=== PATIENT | female | born 1990 | race Caucasian/White ===

== ENCOUNTER 2017-06-23 18:51 | Emergency (ER) | payer OTHER ==
[~2017-06-23] VITALS: Ht 167.6 cm; Wt 39.0 kg
[~2017-06-23 18:51] MED LIST: ABILIFY10 MG; AMITRIPTYLINE H10 MG PO; CALCIUM600 MG; CYCLOBENZAPRINE5 MG PO; NORCO 10-325 T1 EACH PO; NORCO 5-325 TA1 EACH PO; OXYCODONE HCL10 MG PO; PRENATAL FORMU1 EACH PO; PROMETHAZINE HC25 M1 PO; SERTRALINE HCL50 MG PO; SUPER GINSENG1 EACH PO; TRAZODONE HCL100 MG PO
== END 2017-06-23 20:37 | disposition home or self-care (01) ==
LOC: ED 18:51
DX: R51 Headache (principal); F32.9 Major depressive disorder, single episode, unspecified; Z98.51 Tubal ligation status; Z88.1 Allergy status to other antibiotic agents; Z88.2 Allergy status to sulfonamides; Z79.899 Other long term (current) drug therapy
CPT/HCPCS: 96374; 96375; 99282; J1200; J1885; J2765; J7030

== ENCOUNTER 2017-08-15 12:05 | Emergency (ER) | payer OTHER ==
[~2017-08-15] VITALS: Ht 167.6 cm; Wt 39.0 kg
--- OUTSIDE RECORDS SUMMARY | ~2017-08-15 | XMS | Encounter Summary ---
Demographics + + + | Address | [address] | | | [place] [address] | + + + | Home Phone | | + + + | Preferred Language | Unknown | + + + | Marital Status | | + + + | Congregational Affiliation | Unknown | + + + | Race | Unknown | + + + | Ethnic Group | Other Race | + + + Author + + + | Author | [facility] | + + + | Organization | [facility] | + + + | Address | Unknown | + + + | Phone | Unavailable | + + + Support +------+ +---------+ + | Name | Relationship | Address | Phone | +------+ +---------+ + ECON | Unknown | Unavailable | +------+ +---------+ + Care Team Providers + +------+-------+ | Care Senior Php Developer Name | Role | Phone | + +------+-------+ | Michael Branch MD | PCP | tel | + +------+-------+ Encounter Details +--------+ + + + + | Date | Type | Department | Care Team | Description | +--------+ + + + + | 05/20/ | Documentati | Juanjo Duran | Seth Johnson MD | | | 2017 | on | [facility] | [address] | | | | | [facility] | [place] | | | | | [facility] | [place] [address] | | | | | [address] | [phone] | | | | | [address] [facility] | | | | | | [facility] | | | | | | [place], | | | | | | [place] [address] | | | | | | [phone] | | | +--------+ + + + [...] + +---------+ + | Alcohol Use | Drinks/We | oz/Week | Comments | | | ek | | | + + +---------+ + | No | | | | + + +---------+ + + + + | Sex Assigned at | Date Recorded | | | | + + + | Not on file | | + + + as of this encounter Plan of Treatment +--------+---------+ + + + | Date | Type | Specialty | Care Team | Description | +--------+---------+ + + + | 08/21/ | Office | Gastroenterology | Brain Waggoner, | | | 2016 | Visit | | [address] | | | | | | [address] | | | | | | [place] [address] | | | | | | [phone] | | | | | | | | +--------+---------+ + + + as of this encounter Visit Diagnoses Not on filein this encounter"
--- OUTSIDE RECORDS SUMMARY | ~2017-08-15 | XMS | Clinical Summary ---
Demographics + + + | Address | [address] | | | [place] [address] | + + + | Home Phone | | + + + | Preferred Language | Unknown | + + + | Marital Status | | + + + | Pentecostal Affiliation | Unknown | + + + | Race | Unknown | + + + | Ethnic Group | Other Race | + + + Author + + + | Author | [facility] | + + + | Organization | [facility] | + + + | Address | Unknown | + + + | Phone | Unavailable | + + + Support +------+ +---------+ + | Name | Relationship | Address | Phone | +------+ +---------+ + ECON | Unknown | Unavailable | +------+ +---------+ + Care Team Providers + +------+-------+ | Care Road Production General Manager Name | Role | Phone | + +------+-------+ | Michael Branch MD | PP | tel | + +------+-------+ Source Comments [facility] is fully live on both [facility] and [facility] Allergies + + + + + + [...] | | | + + +-------+---------+------+------+-------+ | oxyCODONE | Take 10 mg by mouth | | | | | Activ | | (immediate release) | three times daily. | | | | | e | | 10 mg oral tablet | | | | | | | + + +-------+---------+------+------+-------+ | traZODone 50 mg | Take 50 mg by mouth | | | 08/0 | | Activ | | oral tablet | once daily at | | | 2/20 | | e | | | bedtime. | | | 17 | | | + + +-------+---------+------+------+-------+ | amitriptyline 25 | Take 50 mg by mouth | | | | | Activ | | mg oral tablet | once daily at | | | | | e | | | bedtime. | | | | | | + + +-------+---------+------+------+-------+ | NORTREL 1/35 (28) | Take 1 tablet by | | | 07/2 | | Activ | | 1-35 mg-mcg oral | mouth once daily. | | | 12/13 | | e | | tablet | | | | 17 | | | + + +-------+---------+------+------+-------+ | promethazine 25 mg | Take 25 mg by mouth | | | 02/24 | | Activ | | oral tablet | once daily as | | | 12/13 | | e | | | needed. | | | 17 | | | + + +-------+---------+------+------+-------+ | sertraline 50 mg | Take 50 mg by mouth | | | | | Activ | | oral tablet | once daily. | | | | | e | + + +-------+---------+------+------+-------+ | ferrous sulfate | Take 325 mg by mouth | | | | | Activ | | 325 mg (65 mg iron) | once daily. | | | | | e | | oral tablet | | | | | | | + + +-------+---------+------+------+-------+ | albuterol 90 | Inhale 1 puff by | | | | | Activ | | mcg/actuation | mouth every four | | | | | e | | inhalation HFA | hours as needed. | | | | | | | aerosol inhaler | | | | | | | + + +-------+---------+------+------+-------+ | ascorbic acid | Take 500 mg by mouth | | | | | Activ | | (vitamin C) (VITAMIN | two times daily. | | | | | e | | C) 500 mg oral | | | | | | | | tablet | | | | | | | + + +-------+---------+------+------+-------+ | cholecalciferol | Take 2,000 Units by | | | | | Activ | | (Vitamin D3) | mouth once daily. | | | | | e | | (VITAMIN D3) 2,000 | | | | | | | | unit oral capsule | | | | | | | + + +-------+---------+------+------+-------+ Active Problems + + + | Problem | Noted Date | + + + | Unintended weight loss | 05/01/2017 | + + + Encounters +--------+ + + + + | Date | Type | Specialty | Care Team | Description | +--------+ + + + + | 05/20/ | MyChart | | Seth Johnson MD | RE:urine | | 2016 | Encounter | | | | +--------+ + + + + | 05/20/ | Documentati | | Seth Johnson MD | | | 2016 | on | | | | +--------+ + + + + from Last 3 Months Family History + + +------+ + | [...] Pressure | 120/70 | 05/01/2017 2:58 PM PDT | + + + + | Pulse | 68 | 05/01/2017 2:58 PM PDT | + + + + | Temperature | - | - | + + + + | Respiratory Rate | 12 | 05/01/2017 2:58 PM PDT | + + + + | Oxygen Saturation | - | - | + + + + | Inhaled Oxygen | - | - | | Concentration | | | + + + + | Weight | 45.4 kg (100 lb) | 05/01/2017 2:58 PM PDT | + + + + | Height | 167.6 cm (5' 6") | 05/01/2017 2:58 PM PDT | + + + + | Body Mass Index | 16.14 | 05/01/2017 2:58 PM PDT | + + + + Plan of Treatment +--------+---------+ + + + | Date | Type | Specialty | Care Team | Description | +--------+---------+ + + + | 08/21/ | Office | | Brain Waggoner, | | | 2016 | Visit | | [address] | | | | | | [address] | | | | | | [place] [address] | | | | | | [phone] | | | | | | | | +--------+---------+ + + + + + + + + | Health Maintenance | Due Date | Last Done | Comments | + + + + + | INFLUENZA VACCINE | | | | | (FLU SHOT) | 7 | | | + + + + + Results LAB OTHER (05/20/2017) + + + + | Component | Value | Ref Range | + + + + | PORPHYRIN WORKUP UR | Negative | | + + + + + + + | Specimen | Performing Laboratory | + + + | Urine | [facility] [id number], [place] | | | [address] | + + + from Last 3 Months
[2017-08-15] MEDS ORDERED: ALBUTEROL2.5 MG/3 M INH (12:21)
== END 2017-08-15 15:06 | disposition home or self-care (01) ==
LOC: ED 12:05
DX: R10.2 Pelvic and perineal pain (principal); Z88.8 Allergy status to other drugs, medicaments and biological substances; Z79.899 Other long term (current) drug therapy; Z79.891 Long term (current) use of opiate analgesic
CPT/HCPCS: 76830; 76856; 81001; 84703; 87077; 87088; 87186; 99284

== ENCOUNTER 2018-10-25 12:03 | Emergency (ER) | payer OTHER ==
[~2018-10-25] VITALS: Ht 167.6 cm; Wt 45.5 kg
[~2018-10-25 12:03] MED LIST changes: +ALBUTEROL2.5 MG/3 M INH
--- OUTSIDE RECORDS SUMMARY | 2018-10-25 12:06 | XMS ---
PreManage Notification: ANDRESSA VARELA Security Fitness Services Manager Events No recent Security Events currently on file [facility] There are no care providers on record at this time. Domingo has no Care Guidelines for this patient. EFelipa VISIT COUNT (12 MO.) 1 [facility]A [facility] TOTAL 1 NOTE: Visits indicate total known visits. ED/UCC VISIT TRACKING (12 MO.) 10/25/2018 12:04 [facility] [place] TYPE: Emergency COMPLAINT: - ABD PAIN,SHOULDER PAIN INPATIENT VISIT TRACKING (12 MO.) No inpatient visits to display in this time frame [email or web address]
== END 2018-10-25 15:06 | disposition left against medical advice (07) ==
LOC: ED 12:03
DX: R10.31 Right lower quadrant pain (principal); N19 Unspecified kidney failure; Z88.2 Allergy status to sulfonamides; Z88.1 Allergy status to other antibiotic agents; Z88.8 Allergy status to other drugs, medicaments and biological substances; Z79.899 Other long term (current) drug therapy
CPT/HCPCS: 76830; 76856; 81001; 84703; 99284-25

== ENCOUNTER 2019-09-07 11:12 | Emergency (ER) | payer OTHER ==
[~2019-09-07] VITALS: Ht 165.1 cm; Wt 47.2 kg
--- OUTSIDE RECORDS SUMMARY | ~2019-09-07 | XMS | Encounter Summary ---
Demographics + + + | Address | [address] | | | [place] [address] | + + + | Home Phone | | + + + | Preferred Language | Unknown | + + + | Marital Status | | + + + | Yazidi Affiliation | Unknown | + + + | Race | Unknown | + + + | Ethnic Group | Unknown | + + + Author + + + | Author | [facility] | | | and [place] | + + + | Organization | [facility] | | | and [place] | + + + | Address | Unknown | + + + | Phone | Unavailable | + + + Support + + + + + | Name | Relationship | Address | Phone | + + + + + | Brett Luis | ECON | Unknown | | + + + + + | Normanomi Flores | ECON | UNK | | | | | [place] | | + + + + + Care Team Providers + +------+ + | Care Logging Superintendent Name | Role | Phone | + +------+ + | Giovanna Rivera MD | PCP | | + +------+ + Encounter Details +--------+ + + + + | Date | Type | Department | Care Team | Description | +--------+ + + + + | 02/07/ | Hospital | [facility] | [facility], | | | 2012 | Encounter | [facility] | MD Giovanna [address] | | | | | [address] [place], | | | | | [address] [place], | [place] [address] | | | | | [place] [address] | [phone] | | | | | [phone] | | | +--------+ + + + + Social History + +-------+ +--------+------+ | Tobacco Use | Types | Packs/Day | Years | Date | | | | | Used | | + +-------+ +--------+------+ | Never Assessed | | | | | + +-------+ +--------+------+ + + + | Sex Assigned at | Date Recorded | | | | + + + | Not on file | | + + + + + + + | Job Start Date | Occupation | Industry | + + + + | Not on file | Not on file | Not on file | + + + + + + + + | Travel History | Travel Start | Travel End | + + + + + + | No recent travel history available. | + + documented as of this encounter Plan of Treatment Not on filedocumented as of this encounter Procedures + +--------+ + + + | Procedure Name | Priori | Date/Time | Associated Diagnosis | Comments | | | ty | | | | + +--------+ + + + | CULTURE IF | Routin | 02/07/2013 | | Results for this | | INDICATED,UA | e | 9:45 PM | | procedure are in the | | | | PDT | | results section. | + +--------+ + + + | URINALYSIS WITH | Routin | 02/07/2013 | | Results for this | | MICROSCOPIC | e | 9:45 PM | | procedure are in the | | | | PDT | | results section. | + +--------+ + + + | CULTURE, URINE | Routin | 02/07/2013 | | Results for this | | | e | 9:45 PM | | procedure are in the | | | | PDT | | results section. | + +--------+ + + + documented in this encounter Results Culture, Urine (02/07/2013 9:45 PM PDT) + + + + + + | Component | Value | Ref Range | Performed | Pathologist | | | | | At | Signature | + + + + + + | Specimen | Urine | | [facility] | | | | | [facility] | | | | | | [facility] | | | | | | CENTER | | | | | | LABORATORY | | + + + + + + | RESULT | Mixed Tamara | | [facility] | | | | | [facility] | | | | | | [facility] | | | | | | MED[facility] | | | | | | CENTER | | | | | | LABORATORY | | + + + + + + | RESULT | This is a mixed culture | | [facility] | | | | suggesting the | | [facility] | | | | probability of | | HEART | | | | contamination or | | MEDICAL | | | | colonization not related | | CENTER | | | | to infection. Further | | LABORATORY | | | | workup of these | | | | | | organisms may result in | | | | | | clinically misleading | | | | | | information due to low | | | | | | numbers and/or mixture | | | | | | of organisms present. | | | | | | Collection of another | | | | | | specimen is suggested, | | | | | | avoiding superficial | | | | | | sources of | | | | | | contamination. | | | | + + + + + + | Status | 02/09/2013 Final | | [facility] | | | | | [facility] | | | | | | [facility] | | | | | | [facility] | | | | | | [facility]ENTER | | | | | | LABORATORY | | + + + + + + + + | Specimen | + + | Urine specimen | | (specimen) | + + + + + + + | Performing | Address | City/State/Zipcode | Phone Number | | Organization | | | | + + + + + | [facility] | [address] | [place] [address] | | | [facility] | | | | | LABORATORY | | | | + + + + + Urinalysis With Microscopic (02/07/2013 9:45 PM PDT) + + + + + + | Component | Value | Ref Range | Performed | Pathologist | | | | | At | Signature | + + + + + + | Color, | Yellow | | [facility] | | | Urine | | | [facility] | | | | | | HEART | | | | | | MEDICAL | | | | | | CENTER | | | | | | LABORATORY | | + + + + + + | Clarity | Hazy | | [facility] | | | | | | [facility] | | | | | | HE[facility] | | | | | | MEDICAL | | | | | | CENTER | | | | | | LABORATORY | | + + + + + + | Glucose, | Negative | Negative mg/dL | [facility] | | | Urine | | | [facility] | | | | | | HEART | | | | | | MEDICAL | | | | | | CENTER | | | | | | LABORATORY | | + + + + + + | Bilirubin, | Negative | Negative | [facility] | | | Urine | | | [facility] | | | | | | HEART | | | | | | MEDICAL | | | | | | CENTER | | | | | | LABORATORY | | + + + + + + | Ketones, | Negative | Negative mg/dL | [facility] | | | Urine | | | [facility] | | | | | | HEART | | | | | | MEDICAL | | | | | | CENTER | | | | | | LABORATORY | | + + + + + + | Specific | 1.016 | 1.001 - 1.030 | [facility] | | | [place] | | | [facility] | | | | | | HE[facility] | | | | | | MEDICAL | | | | | | CENTER | | | | | | LABORATORY | | + + + + + + | pH, Urine | 6.5 | 5.0 - 7.5 | [facility] | | | | | | [facility] | | | | | | HE[facility] | | | | | | MEDICAL | | | | | | CENTER | | | | | | LABORATORY | | + + + + + + | Protein, | Trace (A) | Negative mg/dL | [facility] | | | Urine | | | [facility] | | | | | | HEART | | | | | | MEDICAL | | | | | | CENTER | | | | | | LABORATORY | | + + + + + + | Urobilinoge | <2.0 | <2.0 mg/dL | [facility] | | | n, Urine | | | [facility] | | | | | | HEART | | | | | | MEDICAL | | | | | | CENTER | | | | | | LABORATORY | | + + + + + + | Nitrite, | Negative | Negative | [facility] | | | Urine | | | [facility] | | | | | | HEART | | | | | | MEDICAL | | | | | | CENTER | | | | | | LABORATORY | | + + + + + + | Blood, | Negative | Negative | [facility] | | | Urine | | | [facility] | | | | | | HEART | | | | | | MEDICAL | | | | | | CENTER | | | | | | LABORATORY | | + + + + + + | Leukocyte | Large (A) | Negative | [facility] | | | Esterase, | | | [facility] | | | Urine | | | HEART | | | | | | MEDICAL | | | | | | CENTER | | | | | | LABORATORY | | + + + + + + | WBC UA | 25 (H) | <6 /hpf | [facility] | | | | | | [facility] | | | | | | [facility] | | | | | | MEDICAL | | | | | | CENTER | | | | | | LABORATORY | | + + + + + + | RBC UA | <1 | <6 /hpf | [facility] | | | | | | [facility] | | | | | | [facility] | | | | | | MEDICAL | | | | | | CENTER | | | | | | LABORATORY | | + + + + + + | BACTERIA UA | None seen | /hpf | [facility] | | | | | | [facility] | | | | | | HEART | | | | | | MEDICAL | | | | | | CENTER | | | | | | LABORATORY | | + + + + + + | SQUAMOUS | ManyComment: Healthy | /lpf | [facility] | | | EPITHELIAL | individuals show up to | | [facility] | | | UA | FEW squamous epithelial | | HEART | | | | cells in the urine, | | MEDICAL | | | | depending on collection | | CENTER | | | | method. | | LABORATORY | | + + + + + + | MUCUS UA | Present (A) | None seen /lpf | [facility] | | | | | | [facility] | | | | | | HE[facility] | | | | | | MEDICAL | | | | | | CENTER | | | | | | LABORATORY | | + + + + + + + + | Specimen | + + | | + + + + + + + | Performing | Address | City/State/Zipcode | Phone Number | | Organization | | | | + + + + + | [facility] | [address] | [place] [address] | | | [facility] | | | | | LABORATORY | | | | + + + + + Cul Ariana MOLINA (02/07/2013 9:45 PM PDT) + + + + + + | Component | Value | Ref Range | Performed | Pathologist | | | | | At | Signature | + + + + + + | Culture | Culture Set Up (A) | Culture not | [facility] | | | Indicated | | indicated | [facility] | | | | | | HE[facility] | | | | | | MEDICAL | | | | | | CENTER | | | | | | LABORATORY | | + + + + + + + + | Specimen | + + | | + + + + + + + | Performing | Address | City/State/Zipcode | Phone Number | | Organization | | | | + + + + + | [facility] | [address] | [place] [address] | | | [facility] | | | | | LABORATORY | | | | + + + + + documented in this encounter Visit Diagnoses Not on filedocumented in this encounter"
--- OUTSIDE RECORDS SUMMARY | ~2019-09-07 | XMS | Encounter Summary ---
Demographics + + + | Address | [address] | | | [place], [place] [address] | + + + | Home Phone | | + + + | Preferred Language | Unknown | + + + | Marital Status | | + + + | Sikh Affiliation | Unknown | + + + | Race | Unknown | + + + | Ethnic Group | Other Race | + + + Author + + + | Author | [facility] | + + + | Organization | [facility] | + + + | Address | Unknown | + + + | Phone | Unavailable | + + + Support + + +---------+ + | Name | Relationship | Address | Phone | + + +---------+ + | Per None, PT | ECON | Unknown | Unavailable | + + +---------+ + Care Team Providers + +------+ + | Care Coloring Room Man Name | Role | Phone | + +------+ + | Michael Branch MD | PCP | | + +------+ + Encounter Details +--------+ + + + + | Date | Type | Department | Care Team | Description | +--------+ + + + + | 05/03/ | MyChart | [facility] | Seth Johnson MD | RE:labs | | 2017 | Encounter | [facility] | [address] | | | | | [facility] | [address] [place], | | | | | [address] | [place] [address] | | | | | [address] | [phone] | | | | | [facility] | | | | | | Physician's | | | | | | [address], | | | | | | [place] [address] | | | | | | [phone] | | | +--------+ + + + + Social History + +-------+ +--------+------+ | Tobacco Use | Types | Packs/Day | Years | Date | | | | | Used | | + +-------+ +--------+------+ | Never Smoker | | | | | + +-------+ +--------+------+ + +---+---+---+ | Smokeless Tobacco: | | | | | Never Used | | | | + +---+---+---+ + + +---------+ + | Alcohol Use | Drinks/Week | oz/Week | Comments | + + +---------+ + | No | | | | + + +---------+ + + + + | Sex Assigned at [...] | + +--------+ + + + | LAB OTHER | Routin | 05/20/2017 | Unintended weight | Results for this | | | e | | loss | procedure are in the | | | | | | results section. | + +--------+ + + + documented in this encounter Results LAB OTHER (05/20/2017) + + + + + + | Component | Value | Ref Range | Performed | Pathologist | | | | | At | Signature | + + + + + + | PORPHYRIN | Negative | | [facility] | | | WORKUP UR | | | LAB | | + + + + + + + + | Specimen | + + | Urine - Urine | | (substance) | + + + + + + + | Performing | Address | City/State/Zipcode | Phone Number | | Organization | | | | + + + + + | [facility] | [address] | [place], [place] | | | | [address] | [address] | | + + + + + documented in this encounter Visit Diagnoses + + | Diagnosis | + + | Unintended weight loss - Primary | + + documented in this encounter"
--- OUTSIDE RECORDS SUMMARY | ~2019-09-07 | XMS | Encounter Summary ---
Demographics + + + | Address | [address] | | | [place] [address] | + + + | Home Phone | | + + + | Preferred Language | Unknown | + + + | Marital Status | | + + + | Baptist Affiliation | Unknown | + + + | Race | Unknown | + + + | Ethnic Group | Unknown | + + + Author + + + | Author | [facility] | | | and [place] | + + + | Organization | [facility] | | | [...] | + + + + + | Norma Flores | ECON | UNK | | | | | MASHA CADENA | | + + + + + Care Team Providers + +------+ + | Care Electrical Tests Supervisor Name | Role | Phone | + +------+ + PCP | Unavailable | + +------+ + Encounter Details +--------+ + + + + | Date | Type | Department | Care Team | Description | +--------+ + + + + | 07/29/ | Hospital | [facility] | Tremayne Reno MD | | | 2008 | Encounter | [facility] | [address] | | | | | EMERGENCY CENTER | [place] [address] | | | | | [address] | [phone] | | | | | [place], [place] | | | | | | [address] | | | | | | [phone] | | | +--------+ + + + [...] | + +--------+ + + + | US ABDOMEN LIMITED | | 07/29/2009 | | Results for this | | | | 7:30 PM | | procedure are in the | | | | PST | | results section. | + +--------+ + + + | US PELVIS | | 07/29/2009 | | Results for this | | TRANSABDOMINAL | | 7:20 PM | | procedure are in the | | | | PST | | results section. | + +--------+ + + + documented in this encounter Results US Abdomen Limited (07/29/2009 7:30 PM PST) + + | Specimen | + + | | + + + + + | Narrative | Performed At | + + + | Exam Performed Location: [facility] | MISCELANIOUS | | ULTRASOUND ABDOMEN, LIMITED CLINICAL INFORMATION: Right lower | LAB | | quadrant pain. COMPARISON: None FINDINGS: Appendix is not | | | visualized. No fluid collection. No significant cecal wall | | | thickening. IMPRESSION: Nonvisualization of the appendix. No | | | significant abnormalities. S: SQ ([id number]) Signed by: BROOKLYN Larios | | | MD KEO | | + + + + + | Procedure Note | + + | Guru, Rad Conversion - 06/19/2013 9:44 PM PDT Exam Performed [facility] IN[facility]:Right lower quadrant | | pain.COMPARISON:NoneFINDINGS:Appendix is not visualized. No fluid collection. No | | significantcecal wall thickening.IMPRESSION:Nonvisualization of the appendix. No | | significant abnormalities.S: SQ ([id number]) Signed by: BROOKLYN CROWLEY MD | |Right lower quadrant pain. | | | |COMPARISON: | |None | | | |FINDINGS: | |Appendix is not visualized. No fluid collection. No significant | |cecal wall thickening. | | | |IMPRESSION: | |Nonvisualization of the appendix. No significant abnormalities. | | | | | |S: SQ ([id number]) Signed by: BROOKLYN CROWLEY MD | + + + +---------+ + + | Performing | Address | City/State/Zipcode | Phone Number | | Organization | | | | + +---------+ + + | [facility] | | | [phone] | + +---------+ + + | [facility]ISC[facility] | | | [phone] | + +---------+ + + US Pelvis Transabdominal (07/29/2009 7:20 PM PST) + + | Specimen | + + | | + + + + + | Narrative | Performed At | + + + | Exam Performed Location: [facility] | MISCELANIOUS | | ULTRASOUND PELVIS, TRANSABDOMINAL AND TRANSVAGINAL CLINICAL | LAB | | INFORMATION: Right lower abdominal pain and pelvic pain. Negative | | | quantitative beta HCG. COMPARISON: None PROCEDURE: | | | Evaluation and measurement of the uterus, endometrium and ovaries, if | | | present, and evaluation of the adnexa. FINDINGS: Transabdominal: | | | The uterus is anteverted and measures 6.8 x 2.1 x 3.6 cm and shows | | | smooth contour. Urinary bladder is suboptimally distended. | | | Ovaries are not visualized transabdominally. Transvaginal: No | | | myometrial masses. Endometrial thickness of 2.6 mm. No fluid in | | | the cul-de-sac. Right ovary measures 3.2 x 1.5 x 1.8 cm and shows | | | multiple follicles. There is normal vascular flow. Left ovary | | | measures 4.3 x 1.8 x 2.1 cm and shows a thin- walled cyst measuring | | | 1.7 x 1.2 x 1.2 cm. Arterial and venous flows noted to the left | | | ovary. IMPRESSION: No significant uterine or adnexal masses. No | | | significant abnormalities. S: SQ ([id number]) Signed by: BROOKLYN Larios | | | MD KEO | | + + + + + | Procedure Note | + + | Guru, Rad Conversion - 06/19/2013 9:56 PM PDT Exam Performed Location: [facility] | [facility]DOM[facility] TRANSVAGINALCLINICAL | | INFORMATION:Right lower abdominal pain and pelvic pain. Negative quantitativebeta | | HCG.COMPARISON:NonePROCEDURE:Evaluation and measurement of the uterus, endometrium and | | ovaries,if present, and evaluation of the adnexa.FINDINGS:Transabdominal: The uterus is | | anteverted and measures 6.8 x 2.1 x3.6 cm and shows smooth contour. Urinary bladder is | | suboptimallydistended. Ovaries are not visualized transabdominally.Transvaginal: No | | myometrial masses. Endometrial thickness of 2.6mm. No fluid in the cul-de-sac. Right | | ovary measures 3.2 x 1.5 x1.8 cm and shows multiple follicles. There is normal | | vascularflow. Left ovary measures 4.3 x 1.8 x 2.1 cm and shows a thin-walled cyst | | measuring 1.7 x 1.2 x 1.2 cm. Arterial and venousflows noted to the left | | ovary.IMPRESSION:No significant uterine or adnexal masses. No | | significantabnormalities.S: SQ ([id number]) Signed by: BROOKLYN CROWLEY MD | |if present, and evaluation of the adnexa. | | | |FINDINGS: | |Transabdominal: The uterus is anteverted and measures 6.8 x 2.1 x | |3.6 cm and shows smooth contour. Urinary bladder is suboptimally | |distended. Ovaries are not visualized transabdominally. | | | |Transvaginal: No myometrial masses. Endometrial thickness of 2.6 | |mm. No fluid in the cul-de-sac. Right ovary measures 3.2 x 1.5 x | |1.8 cm and shows multiple follicles. There is normal vascular | |flow. Left ovary measures 4.3 x 1.8 x 2.1 cm and shows a thin- | |walled cyst measuring 1.7 x 1.2 x 1.2 cm. Arterial and venous | |flows noted to the left ovary. | | | |IMPRESSION: | |No significant uterine or adnexal masses. No significant | |abnormalities. | | | | | |S: SQ ([id number]) Signed by: BROOKLYN CROWLEY MD | + + + +---------+ + + | Performing | Address | City/State/Zipcode | Phone Number | | Organization | | | | + +---------+ + + | [facility] | | | [phone] | + +---------+ + + | [facility] | | | [phone] | + +---------+ + + documented in this encounter Visit Diagnoses Not on filedocumented in this encounter"
--- OUTSIDE RECORDS SUMMARY | ~2019-09-07 | XMS | Encounter Summary ---
Demographics + + + | Address | [address] | | | [place] [address] | + + + | Home Phone | | + + + | Preferred Language | Unknown | + + + | Marital Status | | + + + | Pentecostalism Affiliation | Unknown | + + + | Race | Unknown | + + + | Ethnic Group | Unknown | + + + Author + + + | Author | [facility] | | | and [place] | + + + | Organization | [facility] | | | and [...] Team Providers + +------+ + | Care Second Hand Paper Machine Name | Role | Phone | + +------+ + PCP | Unavailable | + +------+ + Encounter Details +--------+ + + + + | Date | Type | Department | Care Team | Description | +--------+ + + + + | 12/19/ | Hospital | [facility] | Tremayne Todd MD | | | 2011 | Encounter | [facility] | [address], | | | | | [address] [place], [place] | | | | | [address] | [address] | | | | | [place], [place] | | | | | | [address] | | | | | | [phone] | | | +--------+ + + + [...] Not on filedocumented as of this encounter Visit Diagnoses Not on filedocumented in this encounter"
--- OUTSIDE RECORDS SUMMARY | ~2019-09-07 | XMS | Encounter Summary ---
Demographics + + + | Address | [address] | | | [place], [place] [address] | + + + | Home Phone | | + + + | Preferred Language | Unknown | + + + | Marital Status | | + + + | Sikh Affiliation | Unknown | + + + | Race | Unknown | + + + | Ethnic Group | Other Race | + + + Author + + + | Author | [facility] | + + + | Organization | [facility] | + + + | Address | Unknown | + + + | Phone | Unavailable | + + + Support + + +---------+ + | Name | Relationship | Address | Phone | + + +---------+ + | Per None, PT | ECON | Unknown | Unavailable | + + +---------+ + Care Team Providers + +------+ + | [facility] Name | Role | Phone | + +------+ + | Michael Branch MD | PCP | | + +------+ + Reason for Visit + + + | Reason | Comments | + + + | Weight loss | | + + + | New patient | | | consultation | | + + + Intake Referral (Routine) +--------+--------+ + + + + | Status | Reason | Specialty | Diagnoses / | Referred By | Referred To | | | | | Procedures | Contact | Contact | +--------+--------+ + + + + | Closed | | Endocrinology | Diagnoses | Sarina, | Alex, | | | | , Diabetes & | Underweight | Michael Leung MD | MD Seth | | | | Metabolism | Abdominal | [facility] | [address] [facility] | | | | | Pain | Primary Care | Daniel Johnson | | | | | Procedures | Clinic | [place], | | | | | MD NEW | [address] | [place] | | | | | PATIENT | [place] | [address] | | | | | LEVEL V MD | RJ, | Phone: | | | | | EST PATIENT | [place] [address] | [phone] | | | | | LEVEL V | Phone: | Fax: | | | | | | [phone] | [phone] | | | | | | Fax: | | | | | | | [phone] | | +--------+--------+ + + + + Encounter Details +--------+---------+ + + + | Date | Type | Department | Care Team | Description | +--------+---------+ + + + | 05/01/ | Office | Juanjo Duran | Seth Johnson MD | Unintended weight | | 2017 | Visit | [facility] | [address] | loss (Primary Dx); | | | | [facility] | [place], | LLQ abdominal pain | | | | [facility] [address] | [place] [address] | | | | | [address] | [phone] | | | | | [facility] | | | | | | Physician's | | | | | | [place], | | | | | | [place] [address] | | | | | | [phone] | | | +--------+---------+ + + + Social History + +-------+ +--------+------+ | Tobacco Use | Types | Packs/Day | Years | Date | | | | | Used | | + +-------+ +--------+------+ | Never Smoker | | | | | + +-------+ +--------+------+ + +---+---+---+ | Smokeless Tobacco: | | | | | Never Used | | | | + +---+---+---+ + + | Tobacco Cessation: Counseling Given: Yes | + + + + +---------+ + | Alcohol Use [...] + + documented as of this encounter Last Filed Vital Signs + + + + + | Vital Sign | Reading | Time Taken | Comments | + + + + + | Blood Pressure | 120/70 | 05/01/2017 2:58 PM | | | | | PDT | | + + + + + | Pulse | 68 | 05/01/2017 2:58 PM | | | | | PDT | | + + + + + | Temperature | - | - | | + + + + + | Respiratory Rate | 12 | 05/01/2017 2:58 PM | | | | | PDT | | + + + + + | Oxygen Saturation | - | - | | + + + + + | Inhaled Oxygen | - | - | | | Concentration | | | | + + + + + | Weight | 45.4 kg (100 lb) | 05/01/2017 2:58 PM | | | | | PDT | | + + + + + | Height | 167.6 cm (5' 6") | 05/01/2017 2:58 PM | | | | | PDT | | + + + + + | Body Mass Index | 16.14 | 05/01/2017 2:58 PM | | | | | PDT | | + + + + + documented in this encounter Progress Notes Ivone Kim MD - 05/01/2017 2:20 PM PDTFormatting of this note might be different fro m the original. Endocrine Clinic PCP: Michael Branch MD Referring Physician: Michael Branch MD [facility] [address] [place] [address] Reason for referral: Referred for evaluation of inability to gain weight and LLQ pain. HPI: Therese Luis is a 27 y.o. female with PMH of anxiety and post thyro ditis. Therese claims that the heaviest she has ever been was 135 lb, this was 7 years ago. S he cant remember any specific event that might have triggered her weight loss. But since the n she has lost approximately 35 lbs. She claims to eats 4 large meals a day and multiple sna cks. Her diet is high in fat and carbohydrates and was started on amitriptyline by her PCP f or weight gain. Her main concern this visit is that despite all her attempts to gain weight she has not been able to. She is also concerned because all her family is overweight except herself. Concomitantly she complains of frequent panic attacks, palpitations and mild tremor s. Her other complaint this visit is abdominal pain that started 2 weeks ago. She states that the pain is dull, 8/10, starts in LLQ and radiates to her left thigh. The pain usually lasts up to a minute and resolves on its own. Therese experiences up to 20 episodes of abdominal p ain a day. Since it started it has not changed. She denies diarreha or constipation. Her steven n usually improves when she takes oxycodone and takes a hot shower. The pain is usually wors e when she lays down. She also denies fever, chills or pain during sexual intercourse. Imagi ng normal ROS: General: no night sweats, unable to gain weight HEENT: denies blurred vision and visual change Psych: no depression, multiple panic attacks and high anxiety, no sleep disturbance or nigh tmares Pulm: no SOB, STAPLES or orthopnea. No snoring, apnea. CV:no hest pain, edema or palpitations GI: no nausea, vomiting, diarrhea or constipation. LLQ abdominal pain ENDO: no heat intolerance, cold intolerance or fractures : no urinary hesitancy, polyuria or nocturia Neuro: no pain, numbness or dizziness Skin: no vitiligo, dermopathy or easy bruising MS: no weakness or loss of muscle mass The remainder of the 13 system ROS has been reviewed Current Outpatient Prescriptions: albuterol 90 mcg/actuation inhalation HFA aerosol inhaler , Inhale 1 puff by mouth every four hours as needed., Disp: , Rfl: amitriptyline 25 mg oral tablet, Take 50 mg by mouth once daily at bedtime., Disp: , Rfl: ferrous sulfate 325 mg (65 mg iron) oral tablet, Take 325 mg by mouth once daily., Disp: , Rfl: NORTREL 1 (28) 1-35 mg-mcg oral tablet, Take 1 tablet by mouth once daily., Disp: , Rfl: oxyCODONE (immediate release) 10 mg oral tablet, Take 10 mg by mouth three times daily., Di sp: , Rfl: promethazine 25 mg oral tablet, Take 25 mg by mouth once daily as needed., Disp: , Rfl: sertraline 50 mg oral tablet, Take 50 mg by mouth once daily., Disp: , Rfl: traZODone 50 mg oral tablet, Take 50 mg by mouth once daily at bedtime., Disp: , Rfl: Allergies: septra and wellbutrin Patient Active Problem List Diagnosis Unintended weight loss Past Medical History: Diagnosis Date Depression LLQ abdominal pain FAMILY HISTORY Family History Problem Relation Age of Onset - hypothyroidism brother - mother hypothyroidism PAST MEDICAL/SURGICAL HISTORY Tubal ligation SOCIAL HISTORY -Lives with her and 4 children -Marital Status: - Number of Children: 4 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 Painful to palpation in LLQ Ext: no edema, no tremors Skin: no lesions or bruising, multiple tattoos Psych: quiet, reserved mood and affect Labs: No results found for: A1C No results for input(s): CHOL, LDL, HDL, TRI in the last 8640 hours. No results for input(s): AST, ALT, TBILI, AP, ALB, TP in the last 8640 hours. No results for input(s): GLU, BUN, CR, ALB, CA, NA, K, CL, BICARB in the last 8640 hours. No results found for: TSH Assessment and plan: 1. Weight/Abd Pain: Therese Luis is a 27 y.o. female comes to the clinic with c oncerns of inability to gain weight. She feels uncomfortable with her current weight. She al so has an atypical abdominal pain, for which she has undergone abdominal US which was normal a week ago. Due to the overlapping symptoms will obtain lab work bellow to rule out causes of weight loss and abdominal pain such as hyperthyroidism, HIV, hepatitis C and Celiac dise ase. Since she has been taking OTC iron supplements will measure iron level. Orders Placed This Encounter COMPLETE METABOLIC SET (NA,K,CL,CO2,BUN,CREAT,GLUC,CA,AST,ALT,BILI TOTAL,ALK PHOS,ALB,P ROT TOTAL) CBC ONLY TSH TISSUE TRANSGLUTAMINASE IGA, SERUM IGA, SERUM FOOD COMPLETE IGE PANEL THYROID PEROXIDASE AB, SERUM THYROGLOBULIN AB, SERUM HIV-1,2 AB/HIV-1 P24 AG SCRN, SERUM HEPATITIS C AB W/CONFIRMATION REFLEX PCR FREE T4 ACTH, PLASMA CORTISOL, SERUM FERRITIN VITAMIN D, 25-HYDROXY, SERUM oxyCODONE (immediate release) 10 mg oral tablet traZODone 50 mg oral tablet amitriptyline 25 mg oral tablet NORTREL 1/35 (28) 1-35 mg-mcg oral tablet promethazine 25 mg oral tablet sertraline 50 mg oral tablet ferrous sulfate 325 mg (65 mg iron) oral tablet albuterol 90 mcg/actuation inhalation HFA aerosol inhaler Cassy Kim MD Pager [phone] Endocrinology Fellow This patient was seen and discussed with Dr. Johnson who agrees with this assessment and plan . Associated attestation - Seth Johnson MD - 05/01/2017 4:04 PM PDTI saw and evaluated the patient. I agree with the findings and plan of care as documented in the residents/fellows n ote. Pt agrees to HIV testing Seth Johnson MD Endocrinology, Diabetes and Clinical Nutrition [address] [place] [address] [facility] - [address] [address] documented in this encounter Plan of Treatment Not on filedocumented as of this encounter Results VITAMIN D, 25-HYDROXY, SERUM (05/01/2017 3:24 PM PDT) + + + + + + | Component | Value | Ref Range | Performed | Pathologist | | | | | At | Signature | + + + + + + | VITAMIN D | 21.7 (L) | 30 - 80 ng/mL | [facility] | | | 25 HYDROXY | | | LABORATORY | | | | | | SERVICES, | | | | | | CORE | | + + + + + + + + | Specimen | + + | Blood | + + + + + | Narrative | Performed At | + + + | Reference Interval: 0-18years: Deficiency: <20 ng/mL | [facility] | | Optimum level: >or=20 ng/mL | LABORATORY | | >18years: Deficiency: <20 | SERVICES, CORE | | ng/mL Insufficiency: 20-29 ng/mL | | | Optimum Level: 30-80 ng/mL High: | | | 81-150 ng/ml Toxic: >150 ng/mL | | + + + + + + + + | Performing | Address | City/State/Zipcode | Phone Number | | Organization | | | | + + + + + | [facility] | [address] | [place] [address] | | | SERVICES, CORE | [address] | | | + + + + + FERRITIN (05/01/2017 3:24 PM PDT) + + + + + + | Component | Value | Ref Range | Performed | Pathologist | | | | | At | Signature | + + + + + + | FERRITIN | 36 (L)Comment: Male and | 50 - 200 ng/mL | [facility] | | | | Female >18 years: | | LABORATORY | | | | <20 ng/mL: | | SERVICES, | | | | Consistant with iron | | CORE | | | | deficiency 21-50 | | | | | | ng/mL: Possible | | | | | | iron deficiency 51-99 | | | | | | ng/mL: Iron | | | | | | deficiency unlikely | | | | | | unless inflammation | | | | | | present or | | | | | | patient | | | | | | >65 years of age | | | | | | 100-200 ng/mL: | | | | | | Normal, not consistent | | | | | | with iron deficiency | | | | | | >200 ng/mL: If | | | | | | transferrin saturation | | | | | | >45%, consider | | | | | | hemochromatosis | | | | + + + + + + + + | Specimen | + + | Blood - Blood | | (substance) | + + + + + + + | Performing | Address | City/State/Zipcode | Phone Number | | Organization | | | | + + + + + | [facility] | [address] | [place] [address] | | | SERVICES, CORE | [address] | | | + + + + + CORTISOL, SERUM (05/01/2017 3:24 PM PDT) + +-------+ + + + | Component | Value | Ref Range | Performed | Pathologist | | | | | At | Signature | + +-------+ + + + | CORTISOL, | 3.7 | ug/dL | [facility] | | | TOTAL SERUM | | | LABORATORY | | | | | | SERVICES, | | | | | | CORE | | + +-------+ + + + + + | Specimen | + + | Blood - Blood | | (substance) | + + + + + | Narrative | Performed At | + + + | Reference Ranges: A.M. collect(7-9am) = 5.3-22.5 ug/dL P.M. | [facility] | | collect(3-5 pm) = 3.4-16.8 ug/dL | LABORATORY | | | SERVICES, CORE | + + + + + + + + | Performing | Address | City/State/Zipcode | Phone Number | | Organization | | | | + + + + + | [facility] | [address] | [place] [address] | | | SERVICES, CORE | [address] | | | + + + + + ACTH, PLASMA (05/01/2017 3:24 PM PDT) + +-------+ + + + | Component | Value | Ref Range | Performed | Pathologist | | | | | At | Signature | + +-------+ + + + | ACTH,PLASMA | 14 | <=45 pg/mL | [facility] | | | | | | [facility] | | | | | [facility] | | + +-------+ + + + + + | Specimen | + + | Blood - Blood | | (substance) | + + + + + + + | Performing | Address | City/State/Zipcode | Phone Number | | Organization | | | | + + + + + | [facility] | [address] | [place] [address] | | | [facility] | | | | + + + + + FREE T4 (05/01/2017 3:24 PM PDT) + +-------+ + + + | Component | Value | Ref Range | Performed | Pathologist | | | | | At | Signature | + +-------+ + + + | FREE T4 | 1.1 | 0.6 - 1.2 ng/dL | [facility] | | | | | | LABORATORY | | | | | | SERVICES, | | | | | | CORE | | + +-------+ + + + + + | Specimen | + + | Blood - Blood | | (substance) | + + + + + + + | Performing | Address | City/State/Zipcode | Phone Number | | Organization | | | | + + + + + | [facility] | [address] | [place] [address] | | | SERVICES, CORE | [address] | | | + + + + + HEPATITIS C AB W/CONFIRMATION REFLEX PCR (05/01/2017 3:24 PM PDT) + + + + + + | Component | Value | Ref Range | Performed | Pathologist | | | | | At | Signature | + + + + + + | HEP C AB | Not Detected | Not Detected | [facility] | | | | | | LABORATORY | | | | | | SERVICES, | | | | | | CORE | | + + + + + + + + | Specimen | + + | Blood - Blood | | (substance) | + + + + + + + | Performing | Address | City/State/Zipcode | Phone Number | | Organization | | | | + + + + + | [facility] | [address] | [place] [address] | | | SERVICES, CORE | [address] | | | + + + + + HIV-1,2 AB/HIV-1 P24 AG SCRN, SERUM (05/01/2017 3:24 PM PDT) + + + + + + | Component | Value | Ref Range | Performed | Pathologist | | | | | At | Signature | + + + + + + | HIV-1,2 | Negative | Negative | [facility] | | | AB/HIV-1 | | | LABORATORY | | | P24 AG | | | SERVICES, | | | SCREEN | | | SPECIAL IMM | | | | | | + [place] | | + + + + + + + + | Specimen | + + | Blood - Blood | | (substance) | + + + + + | Narrative | Performed At | + + + | HIV-1 p24 Ag and HIV-1,2 Ab not detected. Test modified from | [facility] | | original sledger's approved specifications. The performance | LABORATORY | | of the EQUIPMENT HIRE MANAGER HIV Combo test, with or without confirmation, was not | SERVICES, | | tested in pediatric patients less than 2 years of age. [facility] | SPECIAL IMM + | | guidelines recommend virologic assays (i.e. HIV 1 VIRAL LOAD) that | [facility] | | directly detect HIV for diagnosis of HIV infection in infants younger | | | than 2 years. | | + + + + + + + + | Performing | Address | City/State/Zipcode | Phone Number | | Organization | | | | + + + + + | [facility] | [address] | [place] [address] | | | SERVICES, SPECIAL | [address] | | | | IMM + [place] | | | | + + + + + THYROGLOBULIN AB, SERUM (05/01/2017 3:24 PM PDT) + + + + + + | Component | Value | Ref Range | Performed | Pathologist | | | | | At | Signature | + + + + + + | THYROGLOBUL | <0.9Comment: | 0.0 - 4.0 IU/mL | [facility] | | | IN ANTIBODY | INTERPRETIVE | | REG UNIV | | | | INFORMATION: | | PTH - INTFC | | | | Thyroglobulin Antibody | | | | | | | | | | | | A | | | | | | value of 4.0 IU/mL or | | | | | | less indicates a | | | | | | negative result for | | | | | | thyroglobulin | | | | | | antibodies. The | | | | | | Thyroglobulin Antibody | | | | | | assay is being performed | | | | | | using the Jeri | | | | | | [place] Access DxI | | | | | | method.Performed by [facility] | | | | | | [facility],[address] | | | | | | [address], [facility],[place] | | | | | | [address] | | | | | | [phone]. | | | | | | Antonino varela MD, | | | | | | Lab. Director | | | | + + + + + + + + | Specimen | + + | Blood - Blood | | (substance) | + + + + + + + | Performing | Address | City/State/Zipcode | Phone Number | | Organization | | | | + + + + + | [facility] | [address] [facility] | [place], [place] | | | UNIV PTH - INTFC | | [address] | | + + + + + THYROID PEROXIDASE AB, SERUM (05/01/2017 3:24 PM PDT) + + + + + + | Component | Value | Ref Range | Performed | Pathologist | | | | | At | Signature | + + + + + + | THYROID | 0.6Comment: Performed by | 0.0 - 9.0 IU/mL | [facility] | | | PEROXIDASE | [facility],[address] | | REG UNIV | | | AB | [address], [facility],[place] | | PTH - INTFC | | | | [address] | | | | | | [phone]. | | | | | | Antonino varela MD, | | | | | | Lab. Director | | | | + + + + + + + + | Specimen | + + | Blood - Blood | | (substance) | + + + + + + + | Performing | Address | City/State/Zipcode | Phone Number | | Organization | | | | + + + + + | [facility] | [address] | [place], [place] | | | UNIV PTH - INTFC | | [address] | | + + + + + FOOD COMPLETE IGE PANEL (05/01/2017 3:24 PM PDT) + +-------+ + + + | Component | Value | Ref Range | Performed | Pathologist | | | | | At | Signature | + +-------+ + + + | PEANUT IGE | <0.10 | <0.10 kU/L | [facility] | | | | | | LABORATORY | | | | | | SERVICES, | | | | | | SPECIAL IMM | | | | | | + [place] | | + +-------+ + + + | WHEAT IGE | <0.10 | <0.10 kU/L | [facility] | | | | | | LABORATORY | | | | | | SERVICES, | | | | | | SPECIAL IMM | | | | | | + [place] | | + +-------+ + + + | EGGWHITE | <0.10 | <0.10 kU/L | [facility] | | | IGE | | | LABORATORY | | | | | | SERVICES, | | | | | | SPECIAL IMM | | | | | | + [place] | | + +-------+ + + + | SOYBEAN IGE | <0.10 | <0.10 kU/L | [facility] | | | | | | LABORATORY | | | | | | SERVICES, | | | | | | SPECIAL IMM | | | | | | + [place] | | + +-------+ + + + | A-LACTALBUM | <0.10 | <0.10 kU/L | [facility] | | | IN IGE | | | LABORATORY | | | | | | SERVICES, | | | | | | SPECIAL IMM | | | | | | + [place] | | + +-------+ + + + | SHRIMP IGE | <0.10 | <0.10 kU/L | [facility] | | | | | | LABORATORY | | | | | | SERVICES, | | | | | | SPECIAL IMM | | | | | | + [place] | | + +-------+ + + + | ALMOND IGE | <0.10 | <0.10 kU/L | [facility] | | | | | | LABORATORY | | | | | | SERVICES, | | | | | | SPECIAL IMM | | | | | | + [place] | | + +-------+ + + + | CASHEW NUT | <0.10 | <0.10 kU/L | [facility] | | | IGE | | | LABORATORY | | | | | | SERVICES, | | | | | | SPECIAL IMM | | | | | | + [place] | | + +-------+ + + + | WALNUT IGE | <0.10 | <0.10 kU/L | [facility] | | | | | | LABORATORY | | | | | | SERVICES, | | | | | | SPECIAL IMM | | | | | | + [place] | | + +-------+ + + + | COD IGE | <0.10 | <0.10 kU/L | [facility] | | | | | | LABORATORY | | | | | | SERVICES, | | | | | | SPECIAL IMM | | | | | | + [place] | | + +-------+ + + + | SALMON IGE | <0.10 | <0.10 kU/L | [facility] | | | | | | LABORATORY | | | | | | SERVICES, | | | | | | SPECIAL IMM | | | | | | + [place] | | + +-------+ + + + | CRAB IGE | <0.10 | <0.10 kU/L | [facility] | | | | | | LABORATORY | | | | | | SERVICES, | | | | | | SPECIAL IMM | | | | | | + [place] | | + +-------+ + + + | CLAM IGE | <0.10 | <0.10 kU/L | [facility] | | | | | | LABORATORY | | | | | | SERVICES, | | | | | | SPECIAL IMM | | | | | | + [place] | | + +-------+ + + + | IGE TOTAL, | 23 | 0 - 120 kU/L | [facility] | | | SERUM | | | LABORATORY | | | | | | SERVICES, | | | | | | SPECIAL IMM | | | | | | + [place] | | + +-------+ + + + + + | Specimen | + + | Blood - Blood | | (substance) | + + + + + | Narrative | Performed At | + + + | Specific IGE Ranges: <0.10=Normal 0.10-0.34=For specialists use | [facility] | | only: Clinical relevance undetermined. 0.35-0.69=Low | LABORATORY | | 0.70-3.49=Moderate 3.50-17.49=High >17.49=Very High Positive | SERVICES, | | | SPECIAL IMM + | | | [place] | + + + + + + + + | Performing | Address | City/State/Zipcode | Phone Number | | Organization | | | | + + + + + | [facility] | [address] | [place] [address] | | | SERVICES, SPECIAL | [address] | | | | IMM + [place] | | | | + + + + + IGA, SERUM (05/01/2017 3:24 PM PDT) + +-------+ + + + | Component | Value | Ref Range | Performed | Pathologist | | | | | At | Signature | + +-------+ + + + | IGA SERUM | 209 | 70 - 400 mg/dL | [facility] | | | | | | [facility] - | | | | | | [place] | | + +-------+ + + + + + | Specimen | + + | Blood - Blood | | (substance) | + + + + + + + | Performing | Address | City/State/Zipcode | Phone Number | | Organization | | | | + + + + + | [facility] - | [address] | [place] [address] | | | [place] | | | | + + + + + TISSUE TRANSGLUTAMINASE IGA, SERUM (05/01/2017 3:24 PM PDT) + + + + + + | Component | Value | Ref Range | Performed | Pathologist | | | | | At | Signature | + + + + + + | TISSUE | 1Comment: INTERPRETIVE | 0 - 3 U/mL | [facility] | | | TRANSGLUTAM | INFORMATION: Tissue | | REG UNIV | | | INASE AB, | Transglutaminase (tTG) | | PTH - INTFC | | | IGA | Antibody, IgA 3 U/mL or | | | | | | less: Negative4-10 U/mL: | | | | | | Weak Cpkqryza12 U/mL or | | | | | | greater: Positive | | | | | | Presence of the tissue | | | | | | transglutaminase (tTG) | | | | | | IgA antibody is | | | | | | associated with | | | | | | glutensensitive | | | | | | enteropathies such as | | | | | | celiac disease and | | | | | | dermatitis | | | | | | herpetiformis. tTG IgA | | | | | | antibody concentrations | | | | | | greater than 40 U/mL | | | | | | usually correlate with | | | | | | results of duodenal | | | | | | biopsies consistent with | | | | | | a diagnosis of celiac | | | | | | disease. For antibody | | | | | | concentrations greater | | | | | | or equal to 4 U/mL but | | | | | | less than or equal to 40 | | | | | | U/mL, additional | | | | | | testing for endomysial | | | | | | (APARNA) IgA concentrations | | | | | | may improve the | | | | | | positive predictive | | | | | | value for | | | | | | disease.Performed by | | | | | | [employer],[address] | | | | | | [place] | | | | | | [address] | | | | | | [phone].[employer]. | | | | | | Antonino varela MD, | | | | | | Lab. Director | | | | + + + + + + + + | Specimen | + + | Blood - Blood | | (substance) | + + + + + + + | Performing | Address | City/State/Zipcode | Phone Number | | Organization | | | | + + + + + | [facility] | [address] | [place], [place] | | | UNIV PTH - INTFC | | [address] | | + + + + + TSH (05/01/2017 3:24 PM PDT) + +-------+ + + + | Component | Value | Ref Range | Performed | Pathologist | | | | | At | Signature | + +-------+ + + + | TSH | 0.82 | 0.40 - 3.98 | [facility] | | | | | mIU/L | LABORATORY | | | | | | SERVICES, | | | | | | CORE | | + +-------+ + + + + + | Specimen | + + | Blood - Blood | | (substance) | + + + + + | Narrative | Performed At | + + + | TSH reference ranges are influenced by a variety of environmental | [facility] | | influences, age, gender and ethnicity. The supplied reference limits | LABORATORY | | are based on published values utilizing a similar TSH assay, and | SERVICES, CORE | | should be interpreted with caution. | | + + + + + + + + | Performing | Address | City/State/Zipcode | Phone Number | | Organization | | | | + + + + + | [facility] | [address] | [place] [address] | | | SERVICES, [facility] | [address] | | | + + + + + COMPLETE METABOLIC SET (NA,K,CL,CO2,BUN,CREAT,GLUC,CA,AST,ALT,BILI TOTAL,ALK PHOS,ALB,PROT TOTAL) (05/01/2017 3:24 PM PDT) + +---------+ + + + | Component | Value | Ref Range | Performed | Pathologist | | | | | At | Signature | + +---------+ + + + | GLUCOSE, | 68 (L) | 70 - 99 mg/dL | [facility] | | | PLASMA | | | LABORATORY | | | (LAB) | | | SERVICES, | | | | | | CORE | | + +---------+ + + + | BUN, PLASMA | 16 | 6 - 20 mg/dL | [facility] | | | (LAB) | | | LABORATORY | | | | | | SERVICES, | | | | | | CORE | | + +---------+ + + + | CREATININE | 0.75 | 0.60 - 1.10 | [facility] | | | PLASMA | | mg/dL | LABORATORY | | | (LAB) | | | SERVICES, | | | | | | CORE | | + +---------+ + + + | EGFR | >60 | >60 mL/min | [facility] | | | - | | | LABORATORY | | | [place] | | | SERVICES, | | | | | | CORE | | + +---------+ + + + | EGFR NON | >60 | >60 mL/min | [facility] | | | -BIPIN | | | LABORATORY | | | RICAN | | | SERVICES, | | | | | | CORE | | + +---------+ + + + | SODIUM, | 141 | 136 - 145 | [facility] | | | PLASMA | | mmol/L | LABORATORY | | | (LAB) | | | SERVICES, | | | | | | CORE | | + +---------+ + + + | POTASSIUM, | 3.7 | 3.4 - 5.0 | [facility] | | | PLASMA | | mmol/L | LABORATORY | | | (LAB) | | | SERVICES, | | | | | | CORE | | + +---------+ + + + | CHLORIDE, | 108 | 97 - 108 mmol/L | [facility] | | | PLASMA | | | LABORATORY | | | (LAB) | | | SERVICES, | | | | | | CORE | | + +---------+ + + + | TOTAL CO2, | 27 | 21 - 32 mmol/L | [facility] | | | PLASMA | | | LABORATORY | | | (LAB) | | | SERVICES, | | | | | | CORE | | + +---------+ + + + | CALCIUM, | 8.7 | 8.6 - 10.2 | [facility] | | | PLASMA | | mg/dL | LABORATORY | | | (LAB) | | | SERVICES, | | | | | | CORE | | + +---------+ + + + | CALCIUM(ALB | 8.5 (L) | 8.6 - 10.2 | [facility] | | | CORRECTED) | | mg/dL | LABORATORY | | | | | | SERVICES, | | | | | | CORE | | + +---------+ + + + | BILIRUBIN | 0.6 | 0.3 - 1.2 mg/dL | [facility] | | | TOTAL | | | LABORATORY | | | | | | SERVICES, | | | | | | CORE | | + +---------+ + + + | TOTAL | 7.4 | 6.4 - 8.2 g/dL | [facility] | | | PROTEIN, | | | LABORATORY | | | PLASMA | | | SERVICES, | | | (LAB) | | | CORE | | + +---------+ + + + | ALBUMIN, | 4.2 | 3.5 - 4.7 g/dL | [facility] | | | PLASMA | | | LABORATORY | | | (LAB) | | | SERVICES, | | | | | | CORE | | + +---------+ + + + | ALK PHOS | 59 | 42 - 98 U/L | [facility] | | | | | | LABORATORY | | | | | | SERVICES, | | | | | | CORE | | + +---------+ + + + | AST(SGOT) | 15 | <=41 U/L | [facility] | | | | | | LABORATORY | | | | | | SERVICES, | | | | | | CORE | | + +---------+ + + + | ALT (SGPT) | 21 | <=60 U/L | [facility] | | | | | | LABORATORY | | | | | | SERVICES, | | | | | | CORE | | + +---------+ + + + | ANION GAP | 6 | mmol/L | [facility] | | | | | | LABORATORY | | | | | | SERVICES, | | | | | | CORE | | + +---------+ + + + | ANION | 5 | 4 - 11 mmol/L | [facility] | | | GAP(ALB | | | LABORATORY | | | CORRECTED) | | | SERVICES, | | | | | | CORE | | + +---------+ + + + | POTASSIUM | No Hemo | | [facility] | | | CMNT | | | LABORATORY | | | | | | SERVICES, | | | | | | CORE | | + +---------+ + + + | BILI T CMNT | No Hemo | | [facility] | | | | | | LABORATORY | | | | | | SERVICES, | | | | | | CORE | | + +---------+ + + + | AST CMNT | No Hemo | | [facility] | | | | | | LABORATORY | | | | | | SERVICES, | | | | | | CORE | | + +---------+ + + + + + | Specimen | + + | Blood - Blood | | (substance) | + + + + + | Narrative | Performed At | + + + | Adult glucose reference range change effective 7-12-17. GFR is | [facility] | | estimated using the MDRD equation recommended by the National Kidney | LABORATORY | | Disease Education Program. Estimated GFR Interpretive Information: | SERVICES, CORE | | <60 mL/min/1.73 sq m Chronic Kidney Disease | | | <15 mL/min/1.73 sq m Kidney Failure Estimated | | | GFR greater that 60 mL/min/1.73 sq m is of limited clinical value. | | | The MDRD equation is not valid in the following situations: - | | | Patients under 18 years of age - Severe malnutrition or obesity - | | | Vegetarian diet - Rapidly changing kidney function | | + + + + + + + + | Performing | Address | City/State/Zipcode | Phone Number | | Organization | | | | + + + + + | [facility] | [address] | [place] [address] | | | SERVICES, CORE | [address] | | | + + + + + documented in this encounter Visit Diagnoses + + | Diagnosis | + + | Unintended weight loss - Primary | + + | LLQ abdominal pain Abdominal pain, left lower quadrant | + + documented in this encounter
--- OUTSIDE RECORDS SUMMARY | ~2019-09-07 | XMS | Encounter Summary ---
Demographics + + + | Address | [address] | | | [place] [employer] [address] | + + + | Home Phone | | + + + | Preferred Language | Unknown | + + + | Marital Status | | + + + | Jewish Affiliation | Unknown | + + + | Race | Unknown | + + + | Ethnic Group | Unknown | + + + Author + + + | Author | [facility] | | | and [place] | + + + | Organization | [facility] | | | [...] Team Providers + +------+ + | Care Bottom Precipitator Operator Name | Role | Phone | + +------+ + PCP | Unavailable | + +------+ + Encounter Details +--------+ + + + + | Date | Type | Department | Care Team | Description | +--------+ + + + + | 11/17/ | Hospital | [facility] | Deandre Benito MD | | | 2011 | Encounter | [facility] | [address] | | | | | [address] | | | | | [address] | [place] [address] | | | | | [place], [place] | [phone] | | | | | [address] | | | | | | [phone] | Tremayne Todd MD | | | | | | [address] | | | | | | [address] [place], [place] | | | | | | [address] | | | | | | | | +--------+ + + + [...]
--- OUTSIDE RECORDS SUMMARY | ~2019-09-07 | XMS | Encounter Summary ---
Demographics + + + | Address | [address] | | | [place] [address] | + + + | Home Phone | | + + + | Preferred Language | Unknown | + + + | Marital Status | | + + + | Oriental Orthodox Affiliation | Unknown | + + + | Race | Unknown | + + + | Ethnic Group | Unknown | + + + Author + + + | Author | [facility] | | | and [place] | + + + | Organization | [facility] | | | and [...] Team Providers + +------+ + | Care Sleep Lab Technologist Name | Role | Phone | + +------+ + PCP | Unavailable | + +------+ + Encounter Details +--------+ + + + + | Date | Type | Department | Care Team | Description | +--------+ + + + + | 07/29/ | Hospital | [facility] | Tremayne Reno MD | | | 2008 | Encounter | [facility] | [address] | | | | | EMERGENCY CENTER | [place] [address] | | | | | [address] | [phone] | | | | | [place], [place] | | | | | | [address] | | | | | | [phone] | | | +--------+ + + + [...] + + + | Exam Performed Location: [facility] [place] | MISCELANIOUS | | ULTRASOUND ABDOMEN, LIMITED CLINICAL INFORMATION: Right lower | LAB | | quadrant pain. COMPARISON: None FINDINGS: Appendix is not | | | visualized. No fluid collection. No significant cecal wall | | | thickening. IMPRESSION: Nonvisualization of the appendix. No | | | significant abnormalities. S: SQ ([id number]) Signed by: BROOKLYN Larios | | | MD KEO | | + + + + + | Procedure Note | + + | Guru, Rad Conversion - 06/19/2013 9:44 PM PDT Exam Performed [facility]IN[facility] IN[facility]:Right lower quadrant | | pain.COMPARISON:NoneFINDINGS:Appendix is not visualized. No fluid collection. No | | significantcecal wall thickening.IMPRESSION:Nonvisualization of the appendix. No | | significant abnormalities.S: SQ ([id number]) Signed by: BROOKLYN CROWLEY MD | |Right lower quadrant pain. | | | |COMPARISON: | |None | | | |FINDINGS: | |Appendix is not visualized. No fluid collection. No significant | |cecal wall thickening. | | | |IMPRESSION: | |Nonvisualization of the appendix. No significant abnormalities. | | | | | |S: SQ ([id number]) Signed by: BROOKLYN CROWLEY MD | + + + +---------+ + + | Performing | Address | City/State/Zipcode | Phone Number | | Organization | | | | + +---------+ + + | [facility] | | | [phone] | + +---------+ + + | [facility] | | | [phone] | + +---------+ + + US Pelvis Transabdominal (07/29/2009 7:20 PM PST) + + | Specimen | + + | | + + + + + | Narrative | Performed At | + + + | Exam Performed Location: [facility] [place] | MISCELANIOUS | | ULTRASOUND PELVIS, TRANSABDOMINAL [...] | | | significant abnormalities. S: SQ ([id number]) Signed by: BROOKLYN Larios | | | MD KEO | | + + + + + | Procedure Note | + + | Guru, Rad Conversion - 06/19/2013 9:56 PM PDT Exam Performed [facility] [...] adnexal masses. No | | significantabnormalities.S: SQ ([id number]) Signed by: BROOKLYN CROWLEY MD | |if [...] | | | | | |S: SQ ([id number]) Signed by: BROOKLYN CROWLEY MD | + + + +---------+ + + | Performing | Address | City/State/Zipcode | Phone Number | | Organization | | | | + +---------+ + + | [facility] | | | [phone] | + +---------+ + + | [facility] | | | [phone] | + +---------+ + + documented in this encounter Visit Diagnoses Not on filedocumented in this encounter"
--- OUTSIDE RECORDS SUMMARY | ~2019-09-07 | XMS | Encounter Summary ---
Demographics + + + | Address | [address] | | | [place] [address] | + + + | Home Phone | | + + + | Preferred Language | Unknown | + + + | Marital Status | | + + + | Hindu Affiliation | Unknown | + + + | Race | Unknown | + + + | Ethnic Group | Unknown | + + + Author + + + | Author | [facility] | | | and Darylana | + + + | Organization | [facility] | | | and [...] Team Providers + +------+ + | Care Patient Appointment Coordinator Name | Role | Phone | + +------+ + | Giovanna Rivera MD | PCP | | + +------+ + Reason for Visit Evaluate & Treat (Routine) +--------+--------+ + + + + | Status | Reason | Specialty | Diagnoses / | Referred By | Referred To | | | | | Procedures | Contact | Contact | +--------+--------+ + + + + | Closed | | | Diagnoses | | [facility] [place] | | | | | DVT RIGHT | Miguel, | HIGH RISK | | | | | ARM/IRREGULA | MD Giovanna | | | | | | R | [address] | [address] | | | | [address] | [address] | | | | | PREVIA | [place], [place] | [address] | | | | | Procedures | [id number] | [place], [place] | | | | | C/C | Phone: | [phone] | | | | | | [phone] | | | | | | | Fax: | | | | | | | [phone] | | +--------+--------+ + + + + Encounter Details +--------+ + + + + | Date | Type | Department | Care Team | Description | +--------+ + + + + | 02/10/ | Procedure | [facility] | Otero Arron | Placenta previa | | 2012 | visit | [facility] | MD [address] | without hemorrhage, | | | | CLINIC | [address] | antepartum (Primary | | | | [address] | [place] [address] | Dx); Prior | | | | [address] [place], [place] | [phone] | complicated by DVT, | | | | [phone] | | antepartum; | | | | [phone] | | | | | | | | complicated by | | | | | | tobacco use, | | | | | | antepartum | +--------+ + + + + Social [...] + + + | Blood Pressure | 105/61 | 02/10/2013 3:53 PM | | | | | PDT | | + + + + + | Pulse | 85 | 02/10/2013 3:53 PM | | | | | PDT | | + + + + + | Temperature | 36.2 C (97.1 F) | 02/10/2013 3:53 PM | | | | | PDT | | + + + + + | Respiratory Rate | - | - | | + + + + + | Oxygen Saturation | - | - | | + + + + + | Inhaled Oxygen | - | - | | | Concentration | | | | + + + + + | Weight | 55.3 kg (122 lb) | 02/10/2013 3:53 PM | | | | | PDT | | + + + + + | Height | 167.6 cm (5' 6") | 02/10/2013 3:53 PM | | | | | PDT | | + + + + + | Body Mass Index | 19.69 | 02/10/2013 3:53 PM | | | | | PDT | | + + + + + documented in this encounter Progress Arron Marrero MD - 02/10/2013 8:44 PM Drew Rivera MD [address] [facility] [place] [address] 02/10/2013 Re: Therese Irene Dear Giovanna Rivera MD, Therese is a 22, G3,P2L2 at 23w2d as determined by LMP, refereed to us for examination and c onsultation regarding a prior upper extremity DVT following her in 2009, and a rodo cental previa. Ob Hx: 05/2010: 41+ wks, , male , "infected placenta", graves disease, "DVT" of left lowe r arm after IV left in place for 5 days treated with lovenox x 2 weeks w/ transition to coum len but patient discontinued after 2-3 weeks when her INR was 15.3, no recurrence or lymphe melissa. She describes the clot as being located superficially in the lower arm. 11/2011: 38 wks, , female infant, c/b retained placenta w/ manual extraction and postpart um hemorrhage, no blood transfusion Medications: phenergan, antibiotic day 3/5 for UTI, muscle relaxer for back pain, welbutrin for "mood swings", PNV Medical conditions: Mood swings, back pain since epidural in 2009, pyelonephritis in 2007, irregular heart beat with normal echo and holter monitor per patient report Surgeries: None Allergies: Did not ask patient Social Hx: No use of alcohol or illicit drugs. FOB accompanied patient today and is healthy Family Hx: No history of DVT's embolic complications of unexpected early deaths. On review of systems patient reports subjective fevers "I feel like my stomach is rotting a nd there is placental infection just like in the end of my last ", alternating betw een being cold and hot, always nauseated and vomiting 5-7 times per day (phenergan does not work), increase in BMs. No changes in urinary habits. She abuses tobacco. Assessment A detailed ultrasound examination was completed which does not show evidence of abnor mality. The placenta is a anterior marginal previa, within 1.6 cm of the internal cervical o s. A separate report is attached. Laboratory tests available to me from 12/14/12: TSH: 1.24 Free T4: 1.2 H/H: 13.1/38.1 Platelets: 168 WBC: 8.9 Bun: 15 Creatinine: 0.65 Random Glucose: 69 Ms. Irene was seen by [facility] on 02/05/13 for a echocardiogram for s yncope. A transthoracic echocardiogram was performed and revealed normal chamber sizes and n ormal biventricular systolic function with a left ventricular ejection fraction of 55-60%. T here was no clinically significant valvular disease and the remainder of the study was edgar l. [facility] KARIME Bryson on 01/27/13 . She had a comprehensive thrombophilia evaluation at this time, and attempts to obtain thos e labs for today's consultation were unsuccessful and are pending at this time. Discussion I had an extensive discussion with Ms. Irene today. After listening to the events celeste ding her diagnosis of lower extermity thrombosis, I would recommend that records be requeste d from [facility] regarding her care. She describes a superficial thr ombophlebitis, which is not associated with thrombophilia and does not carry a significant r isk of recurrence, but rather is associated with local tissue trauma and perhaps the infecti on she was being treated for at the time of her delivery. She left before we could ask her t o request these records today. It would be reasonable to place her on a baby aspirin 81 mg u ntil these records can be obtained and reviewed, and until her thrombophilia evaluation is c ompleted. I also had an extensive discussed with Ms. Irene about buying a thermometer and documenti ng her subjective fevers in a log to bring to your office. If she is indeed having cyclic fe vers of unknown etiology, further evaluation for infectious, rheumatologic or autoimmune con ditions would be appropriate. As she reports a normal cardiac evaluation for her palpitations and syncope, it could be va sovagal in nature. If persistent or more worsening during the latter half of , you may consider a neurology consultation. I discussed the diagnosis of a marginal previa as within 2.0cm of the internal os but does not cover it. The incidence of placenta pervia at term is 0.5%-2.0%. The incidence of previa is much higher earlier in the but many of these resolved especially when detected during the first or second trimester. Risk factors include prior uterine surgeries (D&C, C- section, myeomectomy) and multiparity. Common complications include , , antepartum and hemorrhage. Placenta previa is a large risk factor for plac enta accreta (lack of decidua basalis layer), although I do not see evidence for this today. Women with placenta previa should be placed on pelvic rest. If having bleeding or cramping or with a shortened cervical length she should also be placed on bed rest. Recommendations 1. Obtain records regarding 2010 DVT from [facility] in [place] 2. Consider baby aspirin 82 mg po qd until records can be reviewed, and thrombophilia evalu ation is reviewed 3. Reasses placental location, uteroplacental interface and growth in 4 weeks 4. Log subjective fevers at home to bring into next OB visit 5. Smoking cessation 6. Bleeding precautions reviewed. Thank you for the opportunity to share in the care of your patient. If I can be of further help, please feel free to call the [facility], for Maternal Medicine. If you need to contact me directly to discuss these recommendations please contact me at [phone] begin_of_the_skype_highlighting [phone] FREE end_of_the_skype_highlighting. Arron Otero MD Perinatologist [facility] I completed this consultation in 60 minutes with > 50% in direct face to face counseling, a nd coordination of a plan of care. documented in this encounter Plan of Treatment Not on filedocumented as of this encounter Procedures + +--------+ + + + | Procedure Name | Priori | Date/Time | Associated Diagnosis | Comments | | | ty | | | | + +--------+ + + + | US OB 14 + WEEKS | Routin | 02/10/2013 | Placenta previa | Results for this | | DETAIL ANATOMY | e | 8:44 PM | without hemorrhage, | procedure are in the | | SINGLE OR FIRST | | PDT | antepartum Prior | results section. | | GESTATION | | | | | | | | | complicated by DVT, | | | | | | antepartum | | | | | | | | | | | | complicated by | | | | | | tobacco use, | | | | | | antepartum | | + +--------+ + + + documented in this encounter Results OB Detail Saundra Sngl or First (02/10/2013 8:44 PM PDT) + + | Specimen | + + | | + + + + + | Narrative | Performed At | + + + | Therese Irene OB Exam, 02/10/2013 Study UID: | | | [id number] Exam Information | | | Name: Therese Irene Exam Date: 02/10/2013 OB Hx: G: F Trm: Pre: | | | Ab-I: Ab-S: Ect: Multi: Siomara: (3) (2) () () () () () (2) | | | Procedure: Level II OB Ultrasound : | | | 1990 Exam Site: ULTRASOUND ROOM 1 Age: 22 yrs Plurality: 1 | | | LMP: 08/31/2012 Ref. Phys: Giovanna Rivera MD | | | Measurements Computations cm GA wks BPD: | | | 5.48 22w5d [ 1.73] FL: 4.33 24w1d [ 2.08] HC: | | | 20.89 23w0d [ 1.48] AC: 18.66 23w3d [ 2.06] HL: | | | 3.97 24w0d TCD: 2.62 24w5d [ 2.00] Selected GA | | | Weight (gm) 90/10% GA: 23w2d [ 2.00] Method: LMP | | | ARABELLA: 06/07/2013 Son[place] GA: 23w1d | | | [ 1.40] Method: BPD, HC, AC, FL Selected FW | | | Gms: 634 Lbs: 1 lb 5 oz %: 51 Method: BPD, | | | HC, AC, FL Indications for Sonography Known/Suspected | | | abnormality 655.93 Screening for malformation with US V28.3 | | | Screening for growth rate abnormalities with US V28.4 Placenta | | | previa without hemorrhage 641.03 Observations Placenta: | | | Placenta is Anterior and Grade I. Fluid Volume: Normal | | | Lie: Cephalic Size: Normal for dates | | | Growth: Within normal limits. FHR: 149 Anatomy | | | Normal: Posterior fossa, Cerebral ventricles, Choroid plexus, Cavum | | | septum pellucidum, Orbits, Facial profile, Upper lip, Regular | | | cardiac rhythm, 4 chamber heart, Right cardiac outflow tract, Left | | | cardiac outflow tract, Aortic arch, Ductal arch, SVC and IVC, | | | Stomach, Diaphragm, Kidneys, Bladder, 3 vessel cord, cord | | | insertion site, Placental cord insertion site, Cervicothoracic | | | spine, Lumbosacral spine, Upper Extremities, Lower Extremities | | | Comments Anatomy The skull, cerebral cortex, | | | cerebral ventricles and posterior fossa are visualized appear | | | normal. The face, nose, upper and lower lips are visualized | | | and appear normal. The cervical, thoracic, lumbar and sacral | | | portions of the spine are visualized and appear normal. | | | The upper extremities are visualized and appear normal in size and | | | proportion. The lower extremities are visualized and appear | | | normal in size and proportion. The four chamber view of the | | | heart is visualized and demonstrates normal appearing chambers, | | | atrial and ventricular septa. The thorax, pulmonary, | | | diaphragmatic and mediastinal structures appear normal with no | | | masses or fluid collections. The left and right kidneys and | | | filled urinary bladder are visualized and appear normal. The | | | liver, fluid filled stomach and diaphragm are visualized and appear | | | normal. A 3 vessel umbilical cord with normal abdominal wall and | | | placental insertion is visualized. The closed maternal cervical | | | length is 3.8 cm without evidence of internal os dilation. | | | Bilateral maternal ovaries and adnexa are visualized and appear | | | normal. The anterior placenta is 1.6 cm from the internal | | | cervical os, consistent with a marginal placenta previa. | | | Impressions/Recommendations Measurements are not consistent with | | | dates. Measurements are consistent with previous ultrasound. | | | No malformations were identified. Marginal anterior | | | placenta previa. Recommend follow up ultrasound in 4-6 weeks to | | | evaluate growth, fluid and placental location and uteroplacental | | | interface. Patient is aware of limits in obtaining and | | | interpretation of US images. An apparently normal US does not | | | eliminate the risk of aneuploidy or malformation. No | | | future appointments have been scheduled for this patient. If you | | | desire further ultrasound, antepartum testing or consult | | | in this office, please do not hesitate to call us at your | | | convenience to arrange those appointments. Please see | | | consult letter for further information and recommendations. | | | Arron Otero, | | | [employer] Consultant: Jacklyn Escobar RDMS Electronically signed | | | by above physician. | | + + + + + | Procedure Note | + + | Arron Otero MD - 02/10/2013 8:44 PM PDT Formatting of this note might be | | different from the original.Therese Irene OB Exam, 02/10/2013 Study UID: | | [id number] Exam Information Name: Therese Irene Exam | | Date: 02/10/2013 OB Hx: G:F Trm:Pre:Ab-I: Ab-S:Ect:Multi: Siomara: (3)(2)()()()()()(2) | | Procedure: Level II OB Ultrasound : 1990 Exam Site: | | ULTRASOUND ROOM 1 Age: 22 yrs Plurality: 1 LMP: 08/31/2012 Ref. Phys: Miguel, | | Giovanna Dorsey MD Measurements Computations cm GA wks BPD: 5.48 22w5d | | [ 1.73] FL: 4.33 24w1d [ 2.08] HC: 20.89 23w0d [ 1.48] AC: 18.66 23w3d | | [ 2.06] HL: 3.97 24w0d TCD: 2.62 24w5d [ 2.00] Selected GA Weight | | (gm) 90/10% GA: 23w2d [ 2.00] Method: LMP ARABELLA: 06/07/2013 Sono [place] GA: | | 23w1d [ 1.40] Method: BPD, HC, AC, FL Selected FW Gms: 634 Lbs: 1 lb 5 | | oz %: 51 Method: BPD, HC, AC, FL Indications for Sonography Known/Suspected | | abnormality 655.93Screening for malformation with US V28.3Screening for | | growth rate abnormalities with US V28.4Placenta previa without hemorrhage 641.03 | | Observations Placenta: Placenta is Anterior and Grade I. Fluid Volume: Normal | | Lie: Cephalic Size: Normal for dates Growth: Within normal limits. | | FHR: 149 Anatomy Normal: Posterior fossa, Cerebral ventricles, Choroid plexus, | | Cavum septum pellucidum, Orbits, Facial profile, Upper lip, Regular cardiac rhythm, 4 | | chamber heart, Right cardiac outflow tract, Left cardiac outflow tract, Aortic arch, | | Ductal arch, SVC and IVC, Stomach, Diaphragm, Kidneys, Bladder, 3 vessel cord, | | cord insertion site, Placental cord insertion site, Cervicothoracic spine, Lumbosacral | | spine, Upper Extremities, Lower Extremities Comments AnatomyThe skull, | | cerebral cortex, cerebral ventricles and posterior fossa are visualized appear normal. | | The face, nose, upper and lower lips are visualized and appear normal. The | | cervical, thoracic, lumbar and sacral portions of the spine are visualized and | | appear normal. The upper extremities are visualized and appear normal in size and | | proportion. The lower extremities are visualized and appear normal in size and | | proportion. The four chamber view of the heart is visualized and demonstrates normal | | appearing chambers, atrial and ventricular septa. The thorax, pulmonary, | | diaphragmatic and mediastinal structures appear normal with no masses or fluid | | collections. The left and right kidneys and filled urinary bladder are visualized | | and appear normal. The liver, fluid filled stomach and diaphragm are visualized and | | appear normal. A 3 vessel umbilical cord with normal abdominal wall and placental | | insertion is visualized. The closed maternal cervical length is 3.8 cm without evidence | | of internal os dilation. Bilateral maternal ovaries and adnexa are visualized and appear | | normal. The anterior placenta is 1.6 cm from the internal cervical os, consistent with | | a marginal placenta previa. Impressions/RecommendationsMeasurements are not consistent | | with dates. Measurements are consistent with previous ultrasound. No malformations | | were identified. Marginal anterior placenta previa. Recommend follow up ultrasound in | | 4-6 weeks to evaluate growth, fluid and placental location and uteroplacental interface. | | Patient is aware of limits in obtaining and interpretation of US images. An apparently | | normal US does not eliminate the risk of aneuploidy or malformation. No | | future appointments have been scheduled for this patient. If you desire further | | ultrasound, antepartum testing or consult in this office, please do not | | hesitate to call us at your convenience to arrange those appointments. Please see | | consult letter for further information and recommendations. | | Arron Otero M.D.Computing Consultant: Jacklyn | | BELINDA EscobarElectronically signed by above physician. | | Gms: 634 | | Lbs: 1 lb 5 oz | | %: 51 | | Method: BPD, HC, AC, FL | | | |Indications for Sonography | |Known/Suspected abnormality 655.93 | |Screening for malformation with US V28.3 | |Screening for growth rate abnormalities with US V28.4 | |Placenta previa without hemorrhage 641.03 | | | | | |Observations | |Placenta: Placenta is Anterior and Grade I. | |Fluid Volume: Normal | | Lie: Cephalic | | Size: Normal for dates | | Growth: Within normal limits. | |FHR: 149 | | | | Anatomy | |Normal: Posterior fossa, Cerebral ventricles, Choroid plexus, Cavum septum pellucidum, Orbi ts, Facial profile, Upper lip, Regular cardiac rhythm, 4 chamber heart, Right cardiac outflo w tract, Left cardiac outflow tract, | |Aortic arch, Ductal arch, SVC and IVC, Stomach, Diaphragm, Kidneys, Bladder, 3 vessel cord, cord insertion site, Placental cord insertion site, Cervicothoracic spine, Lumbosacra l spine, Upper Extremities, Lower Extremities | | | |Comments | | | | | | Anatomy | |The skull, cerebral cortex, cerebral ventricles and posterior fossa are visualized ap pear normal. | | | |The face, nose, upper and lower lips are visualized and appear normal. | | | |The cervical, thoracic, lumbar and sacral portions of the spine are visualized and ap pear normal. | | | |The upper extremities are visualized and appear normal in size and proportion. | | | |The lower extremities are visualized and appear normal in size and proportion. | | | |The four chamber view of the heart is visualized and demonstrates normal appearing chambers , atrial and ventricular septa. | | | |The thorax, pulmonary, diaphragmatic and mediastinal structures appear normal with no masses or fluid collections. | | | |The left and right kidneys and filled urinary bladder are visualized and appear edgar l. | | | |The liver, fluid filled stomach and diaphragm are visualized and appear normal. | | | |A 3 vessel umbilical cord with normal abdominal wall and placental insertion is visualized. | | | |The closed maternal cervical length is 3.8 cm without evidence of internal os dilation. | | | |Bilateral maternal ovaries and adnexa are visualized and appear normal. | | | |The anterior placenta is 1.6 cm from the internal cervical os, consistent with a marginal p lacenta previa. | | | |Impressions/Recommendations | |Measurements are not consistent with dates. | | | |Measurements are consistent with previous ultrasound. | | | |No malformations were identified. | | | |Marginal anterior placenta previa. | | | |Recommend follow up ultrasound in 4-6 weeks to evaluate growth, fluid and placental locatio n and uteroplacental interface. | | | |Patient is aware of limits in obtaining and interpretation of US images. An apparently norm al US does not eliminate the risk of aneuploidy or malformation. | | | |No future appointments have been scheduled for this patient. If you desire further ultrasou nd, antepartum testing or consult in this office, please do not hesitate to call u s at your convenience to arrange those appointments. | | | |Please see consult letter for further information and recommendations. | | | | | | | | | | | | | | | |Arron Otero M.D. | |Computing Consultant: Jacklyn Escobar RDMS | | | |Electronically signed by above physician. | | | + + documented in this encounter Visit Diagnoses + + | Diagnosis | + + | Placenta previa without hemorrhage, antepartum - Primary | + + | Prior complicated by DVT, antepartum Supervision of other high-risk | | | + + | complicated by tobacco use, antepartum Tobacco use disorder complicating | | , childbirth, or the puerperium, antepartum condition or complication | + + documented in this encounter
--- OUTSIDE RECORDS SUMMARY | ~2019-09-07 | XMS | Encounter Summary ---
Demographics + + + | Address | [address] | | | [place] [address] | + + + | Home Phone | | + + + | Preferred Language | Unknown | + + + | Marital Status | | + + + | Tenriism Affiliation | Unknown | + + + | Race | Unknown | + + + | Ethnic Group | Unknown | + + + Author + + + | Author | [facility] | | | and Darylana | + + + | Organization | [facility] | | | [...] Team Providers + +------+ + | Care Dirt Bike Racer Name | Role | Phone | + +------+ + | Michael Branch MD | PCP | | + +------+ + Encounter Details +--------+ + + + + | Date | Type | Department | Care Team | Description | +--------+ + + + + | 06/05/ | Abstract | [facility] | Mariel, | | | 2018 | | GASTROENTEROLOGY | [address] | | | | | [address] [place] | [place] | | | | | [address] | [place] [address] | | | | | [address] | | | | | | [phone] | | | +--------+ + + + + Social History + +-------+ +--------+------+ | Tobacco Use | Types | Packs/Day | Years | Date | | | | | Used | | + +-------+ +--------+------+ | Never Smoker | | | | | + +-------+ +--------+------+ + + +---------+ + | Alcohol Use [...]
--- OUTSIDE RECORDS SUMMARY | ~2019-09-07 | XMS | Encounter Summary ---
Demographics + + + | Address | [address] | | | [place] [address] | + + + | Home Phone | | + + + | Preferred Language | Unknown | + + + | Marital Status | | + + + | Anglican Affiliation | Unknown | + + + | Race | Unknown | + + + | Ethnic Group | Unknown | + + + Author + + + | Author | [facility] | | | and Darylana | + + + | Organization | [facility] | | | and [...] Team Providers + +------+ + | Care Mattress Spring Encaser Name | Role | Phone | + +------+ + PCP | Unavailable | + +------+ + Encounter Details +--------+ + + + + | Date | Type | Department | Care Team | Description | +--------+ + + + + | 12/20/ | Hospital | [facility] | Tremayne Todd MD | | | 2011 - | Encounter | [facility] | [address], | | | | | [id number] | [address] [place], [place] | | | 12/21/ | | [address] | [address] | | | 2011 | | [place] | | | | | | [address] | | | | | | [phone] | | | +--------+ + + + [...] | + +--------+ + + + | CBC NO DIFFERENTIAL | Routin | 12/22/2011 | | Results for this | | | e | 3:12 AM | | procedure are in the | | | | PDT | | results section. | + +--------+ + + + | CBC NO DIFFERENTIAL | Routin | 12/21/2011 | | Results for this | | | e | 9:35 PM | | procedure are in the | | | | PDT | | results section. | + +--------+ + + + documented in this encounter Results CBC no Differential (12/22/2011 3:12 AM PDT) + + + + + + | Component | Value | Ref Range | Performed | Pathologist | | | | | At | Signature | + + + + + + | WBC | 20.0 (H) | 4.0 - 11.0 K/uL | [facility] | | + + + + + + | RBC | 2.94 (L) | 3.80 - 5.20 | [facility] | | | | | M/uL | [facility] | | + + + + + + | Hemoglobin | 9.8 (L)Comment: Result | 11.6 - 15.5 | [facility] | | | | Verified | g/dL | [facility] | | | | [facility] | | + + + + + + | Hematocrit | 28.3 (L) | 35.0 - 46.0 % | [facility] | | + + + + + + | MCV | 96.4 | 80.0 - 100.0 fL | [facility] | | + + + + + + | MCH | 33.2 | 27.0 - 34.0 pg | [facility] | | + + + + + + | MCHC | 34.4 | 32.0 - 35.5 | [facility] | | | | | g/dL | [facility] | [facility] | | + + + + + + | RDW-CV | 13.6 | 11.0 - 15.0 % | [facility] | [facility] | | + + + + + + | Platelet | 159 | 150 - 400 K/uL | [facility] | | | Count | | | [facility] | [facility] | [facility] | | + + + + + + + + | Specimen | + + | | + + + + + + + | Performing | Address | City/State/Zipcode | Phone Number | | Organization | | | | + + + + + | [facility] | [address] | [place] [address] | | | [facility] | | | | | [facility] | | | | + + + + + | [facility] | | | | | [facility] | [facility] | [facility] | | | | + + + + + CBC no Differential (12/21/2011 9:35 PM PDT) + + + + + + | Component | Value | Ref Range | Performed | Pathologist | | | | | At | Signature | + + + + + + | WBC | 20.9 (H) | 4.0 - 11.0 K/uL | [facility] | | | | [facility] | | + + + + + + | RBC | 4.14 | 3.80 - 5.20 | [facility] | | | | | M/uL | [facility] | | | | | [facility] | | + + + + + + | Hemoglobin | 13.8 | 11.6 - 15.5 | [facility] | | | | | g/dL | [facility] | | | | [facility] | | + + + + + + | Hematocrit | 39.6 | 35.0 - 46.0 % | [facility] | | | [facility] | | + + + + + + | MCV | 95.5 | 80.0 - 100.0 fL | [facility] | | | [facility] | [facility] | | + + + + + + | MCH | 33.3 | 27.0 - 34.0 pg | [facility] | | | [facility] | | [facility] | | + + + + + + | MCHC | 34.9 | 32.0 - 35.5 | [facility] | | | | | g/dL | [facility] | | | [facility] | | + + + + + + | RDW-CV | 13.8 | 11.0 - 15.0 % | [facility] | | | [facility] | | + + + + + + | Platelet | 199 | 150 - 400 K/uL | [facility] | | | Count | | | [facility] | [facility] | [facility] | [facility] | | + + + + + + + + | Specimen | + + | | + + + + + + + | Performing | Address | City/State/Zipcode | Phone Number | | Organization | | | | + + + + + | [facility] | [address] | [place] [address] | | | [facility] | | | | | [facility] | | | | + + + + + | [facility] | | | | | [facility] | | [facility] | [facility] | | | | + + + + + documented in this encounter Visit Diagnoses Not on filedocumented in this encounter"
--- OUTSIDE RECORDS SUMMARY | ~2019-09-07 | XMS | Encounter Summary ---
Demographics + + + | Address | [address] | | | [place] [address] | + + + | Home Phone | | + + + | Preferred Language | Unknown | + + + | Marital Status | | + + + | Episcopal Affiliation | Unknown | + + + [...] Team Providers + +------+ + | Care Controls Technician Name | Role | Phone | + +------+ + PCP | Unavailable | + +------+ + Encounter Details +--------+ + + + + | Date | Type | Department | Care Team | Description | +--------+ + + + + | 12/20/ | Hospital | [facility] | Tremayne Todd MD | | | 2011 | Encounter | [facility] | [address], | | | | | [address] | [address] [place], [place] | | | | | [address] | [address] | | | | | [place], [place] | | | | | | [address] | | | | | | [phone] | | | +--------+ + + + [...]
--- OUTSIDE RECORDS SUMMARY | ~2019-09-07 | XMS | Clinical Summary ---
Demographics + + + | Address | [address] [facility] | | | [place] [address] | + + + | Home Phone | | + + + | Preferred Language | Unknown | + + + | Marital Status | | + + + | Synagogue Affiliation | Unknown | + + + | Race | Unknown | + + + | Ethnic Group | Unknown | + + + Author + + + | Author | [facility] | | | and Darylana | + + + | Organization | [facility] | | | and [...] Team Providers + +------+ + | Care Supervisory Clerk Name | Role | Phone | + +------+ + | Michael Branch MD | PCP | | + +------+ + Allergies + + + + + + | Active Allergy | Reactions | Severity | Noted | Comments | | | | | Date | | + + + + + + | Bupropion | Other (See Comments) | | 06/05/20 | Numb | | | | | 18 | | + + + + + + | Sertraline | Other (See Comments) | | 09/03/19 | Reaction unknown | | | | | 14 | | + + + + + + Medications + + + +---------+------+------+-------+ | Medication | Sig | Dispensed | Refills | Star | End | Statu | | | | | | t | Date | s | | | | | | Date | | | + + + +---------+------+------+-------+ | amitriptyline | Take 10-20 mg by | | 0 | | | Activ | | (ELAVIL) 10 mg | mouth nightly. | | | | | e | | tablet | | | | | | | + + + +---------+------+------+-------+ | IRON PO | Take by mouth | | 0 | | | Activ | | | Daily. | | | | | e | + + + +---------+------+------+-------+ | | Take by mouth. | | 0 | | | Activ | | norethindrone-ethiny | | | | | | e | | l estradiol (NORTREL | | | | | | | | , ,) 1-35 | | | | | | | | MG-MCG per tablet | | | | | | | + + + +---------+------+------+-------+ | oxyCODONE 10 MG | Take 10 mg by mouth | | 0 | | | Activ | | TABS | EVERY 6 TO 8 HOURS | | | | | e | | | NEEDED. | | | | | | + + + +---------+------+------+-------+ | sertraline | Take 25 mg by mouth | | 0 | | | Activ | | (ZOLOFT) 25 mg | Daily. | | | | | e | | tablet | | | | | | | + + + +---------+------+------+-------+ | traZODone | Take 50 mg by mouth | | 0 | | | Activ | | (DESYREL) 50 mg | Daily. | | | | | e | | tablet | | | | | | | + + + +---------+------+------+-------+ | albuterol | Inhale 2 puffs into | | 0 | | | Activ | | (VENTOLIN HFA) 90 | the lungs EVERY 4 TO | | | | | e | | mcg/puff inhaler | 6 HOURS NEEDED | | | | | | | | for Wheezing. | | | | | | + + + +---------+------+------+-------+ | Biotin 5000 MCG | Take 2 capsules by | | 0 | | | Activ | | CAPS | mouth Daily. | | | | | e | + + + +---------+------+------+-------+ | | Take 1 tablet by | | 0 | | | Activ | | Tgxfszur-Stz-St-FA | mouth Daily. | | | | | e | | (/IRON PO) | | | | | | | + + + +---------+------+------+-------+ | ascorbic acid | Take 500 mg by mouth | | 0 | | | Activ | | (VITAMIN C) 500 mg | Daily. | | | | | e | | tablet | | | | | | | + + + +---------+------+------+-------+ | Cholecalciferol | Take 2,000 Units by | | 0 | | | Activ | | (VITAMIN D-3) 2000 | mouth Daily. | | | | | e | | units CAPS | | | | | | | + + + +---------+------+------+-------+ Active Problems + + + | Problem | Noted Date | + + + | Family history of mitral valve disease | 09/03/2013 | + + + | Paroxysmal ventricular tachycardia | 09/03/2013 | + + + | Syncope | 09/03/2013 | + + + | Dizziness | 09/03/2013 | + + + | Palpitations | 09/03/2013 | + + + | Nonspecific low blood pressure reading | 09/03/2013 | + + + | 39 weeks gestation of | 09/03/2013 | + + + | Placenta previa without hemorrhage, antepartum | 02/10/2013 | + + + | Prior complicated by DVT, antepartum | 02/10/2013 | + + + | Tobacco use disorder complicating , childbirth, 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/10/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, antepartum | | + + + + + | Overview: SEB [id number] Decision | + + Family History + + +------+ + | Medical History | Relation | Name | Comments | + + +------+ + | Heart disease | Father | | | + + +------+ + | Hypertension | Father | | | + + +------+ + | Kidney disease | Father | | | + + +------+ + | Thyroid disease | Father | | | + + +------+ + | Diabetes | Mother | | | + + +------+ + | Heart disease | Mother | | | + + +------+ + | Hypertension | Mother | | | + + +------+ + | Kidney disease | Mother | | | + + +------+ + | Thyroid cancer | Mother | | | + + +------+ + + +------+--------+ + | Relation | Name | Status | Comments | + +------+--------+ + | Father | | | | + +------+--------+ + | Mother | | | | + +------+--------+ + Social History + +-------+ +--------+------+ | [...] recent travel history available. | + + Last Filed Vital Signs + + + + + | Vital Sign | Reading | Time Taken | Comments | + + + + + | Blood Pressure | 98/70 | 06/29/2016 1:40 PM | | | | | PDT | | + + + + + | Pulse | 87 | 06/29/2016 1:40 PM | | | | | PDT [...] + + + + | Weight | 45 kg (99 lb 3.2 oz) | 06/29/2016 1:40 PM | | | | | PDT | | + + + + + | Height | 167.6 cm (5' 6") | 05/27/2013 2:55 PM | | | | | PDT | | + + + + + | Body Mass Index | 16.01 | 05/27/2013 2:55 PM | | | | | PDT | | + + + + + Plan of Treatment + + + + + | Health Maintenance | Due Date | Last Done | Comments | + + + + + | Vaccine: | | | | | Dtap/Tdap/Td (1 - | 2 | | | | Tdap) | | | | + + + + + | Cervical Cancer | | | | | Screening (Pap) | 2 | | | + + + + + | Vaccine: Influenza | | | | | (#1) | 9 | | | + + + + + Results Not on filefrom Last 3 Months Insurance + +--------+ +--------+ +---------+--------+ | Payer | Benefi | Subscriber | Effect | Phone | Address | Type | | | t Plan | ID | apolinar | | | | | | / | | Dates | | | | | | Group | | | | | | + +--------+ +--------+ +---------+--------+ | [employer] | MODA | [id number] | | [phone] | | Medica | | MEDICAID HMO | HEALTH | | 018-Pr | 1 | | id | | | MDCD | | esent | | | | | | [place]MO [place] | | | | | | + +--------+ +--------+ +---------+--------+ + +--------+ +--------+ + + | Guarantor Name | Accoun | Relation to | Date | Phone | Billing Address | | | t Type | Patient | of | | | | | | | | | | + +--------+ +--------+ + + | Therese LUIS | Person | Self [birth year] | [address] | | | al/Fam | | 1989 | [phone] | [place] [address] | | | azucena | | | 9 (Home) | | + +--------+ +--------+ + + Advance Directives + + + + + | Type | Date Recorded | Patient | Explanation | | | | Agile Java Developer | | + + + + + | Power of | | | | | Vacuum Pan Operator | | | | + + + + + | Advance | | | | | Directive | | | | + + + + +
--- OUTSIDE RECORDS SUMMARY | ~2019-09-07 | XMS | Encounter Summary ---
Demographics + + + | Address | [address] | | | [place] [address] | + + + | Home Phone | | + + + | Preferred Language | Unknown | + + + | Marital Status | | + + + | Anabaptism Affiliation | Unknown | + + + | Race | Unknown | + + + | Ethnic Group | Unknown | + + + Author + + + | Author | [facility] | | | and Darylana | + + + | Organization | [facility] | | | [...] Team Providers + +------+ + | Care Firmware Test Engineer Name | Role | Phone | + +------+ + | Giovanna iRvera MD | PCP | | + +------+ + Encounter Details +--------+ + + + + | Date | Type | Department | Care Team | Description | +--------+ + + + + | 06/01/ | Hospital | [facility] | [facility], | | | 2013 - | Encounter | [facility] | MD Giovanna [address] | | | | [address] [place], | | | 06/02/ | | [address] [place], [place] | [place] [address] | | | 2012 | | [address] | [phone] | | | | | [phone] | | | +--------+ + + + [...] | + +--------+ + + + | EXTRA HOLD TUBE(S) | Routin | 06/02/2013 | | Results for this | | | e | 6:10 AM | | procedure are in the | | | | PDT | | results section. | + +--------+ + + + | MAGNESIUM | Routin | 06/02/2013 | | Results for this | | | e | 6:09 AM | | procedure are in the | | | | PDT | | results section. | + +--------+ + + + | ALBUMIN | Routin | 06/02/2013 | | Results for this | | | e | 6:09 AM | | procedure are in the | | | | PDT | | results section. | + +--------+ + + + | BASIC METABOLIC | Routin | 06/02/2013 | | Results for this | | PANEL | e | 6:09 AM | | procedure are in the | | | | PDT | | results section. | + +--------+ + + + | TSH | Routin | 06/02/2013 | | Results for this | | | e | 5:45 AM | | procedure are in the | | | | PDT | | results section. | + +--------+ + + + | CBC NO DIFFERENTIAL | Routin | 06/01/2013 | | Results for this | | | e | 8:24 AM | | procedure are in the | | | | PDT | | results section. | + +--------+ + + + documented in this encounter Results Extra Hold Tube(s) (06/02/2013 6:10 AM PDT) + +-------+ + + + | Component | Value | Ref Range | Performed | Pathologist | | | | | At | Signature | + +-------+ + + + | Extra Tube | LAV | | [facility] | | [facility] | [facility] | | | | | [facility] | | | | | | LABORATORY | | + +-------+ + + + + + | Specimen | + + | | + + + + + + + | Performing | Address | City/State/Zipcode | Phone Number | | Organization | | | | + + + + + | [facility] | [address] | [place] [address] | | | [facility] | | | | | LAB[facility]ATORY | | | | + + + + + Magnesium (06/02/2013 6:09 AM PDT) + +---------+ + + + | Component | Value | Ref Range | Performed | Pathologist | | | | | At | Signature | + +---------+ + + + | Magnesium | 1.5 (L) | 1.7 - 2.4 mg/dL | [facility] | | | | | [facility] | | | | | | [facility] | | | | | | LABORATORY | | + +---------+ + + + + + | Specimen | + + | | + + + + + + + | Performing | Address | City/State/Zipcode | Phone Number | | Organization | | | | + + + + + | [facility] | [address] | [place] [address] | | | [facility] | | | | | LABORATORY | | | | + + + + + Basic Metabolic Panel (06/02/2013 6:09 AM PDT) + + + + + + | Component | Value | Ref Range | Performed | Pathologist | | | | | At | Signature | + + + + + + | Na | 136 | 135 - 145 | [facility] | | | | | mmol/L | [facility] | | | | | [facility] | | | | | | [facility] | | | | | | [facility] | | | | | | LABORATORY | | + + + + + + | K | 3.6 | 3.5 - 5.0 | [facility] | | | | | mmol/L | [facility] | | | | | | [facility] | | | | | | [facility] | | | | | | [facility] | | | | | | LABORATORY | | + + + + + + | Cl | 108 | 99 - 109 mmol/L | [facility] | | | | | [facility] | | | | | [facility] | | | | | | [facility] | | | | | | [facility] | | | | | | LABORATORY | | + + + + + + | CO2 | 25 | 21 - 28 mmol/L | [facility] | | | | [facility] | [facility] | | | | | | [facility] | | | | | | [facility] | | | | | | LABORATORY | | + + + + + + | Glucose | 102 (H)Comment: If | 65 - 99 mg/dL | [facility] | | | | , Normal = 65 to | | [facility] | | | | 94 mg/dL. [place] | | HEART | | | | Diabetes Association | | MEDICAL | | | | diagnostic categories | | CENTER | | | | for non adults: | | LABORATORY | | | | Impaired fasting | | | | | | glucose 100 to 125 | | | | | | mg/dL. A fasting | | | | | | glucose of 126 mg/dL or | | | | | | greater indicates | | | | | | diabetes if the | | | | | | abnormality is confirmed | | | | | | on a subsequent day. | | | | | | A random glucose | | | | | | result of greater than | | | | | | 200 mg/dL indicates | | | | | | diabetes if the | | | | | | abnormality is confirmed | | | | | | on a subsequent day. | | | | + + + + + + | BUN | 13 | 8 - 25 mg/dL | [facility] | | | | | | [facility] | | | | | | [facility] | | | | | | LABORATORY | | + + + + + + | Creatinine | 0.55Comment: IDMS | 0.50 - 1.00 | [facility] | | | | traceable creatinine | mg/dL | [facility] | | | | | | [facility] | | | | | | [facility] | | | | | | CENTER | | | | | | LABORATORY | | + + + + + + | Calcium | 8.1 (L) | 8.5 - 10.2 | [facility] | | | | | mg/dL | [facility] | | | | | | [facility] | | | | | | [facility] | | | | | | CENTER | | | | | | LABORATORY | | + + + + + + | Anion Gap | 3 (L) | 5 - 16 mmol/L | [facility] | | | | [facility] | | | | | [facility] | | | | | | [facility] | | | | | | [facility] | | | | | | LABORATORY | | + + + + + + | Estimated | >60Comment: GFR <60: | >60 | [facility] | | | GFR | Chronic kidney disease, | ml/min/1.73m2 | [facility] | | | | if found over a 3 month | | HEART | | | | period.GFR <15: Kidney | | MEDICAL | | | | failure.For | | CENTER | | | | Americans, multiply the | | LABORATORY | | | | calculated GFR by 1.210 | | | | + + + + + + + + | Specimen | + + | | + + + + + + + | Performing | Address | City/State/Zipcode | Phone Number | | Organization | | | | + + + + + | [facility] | [address] | [place] [address] | | | [facility] | | | | | LABORATORY | | | | + + + + + Albumin (06/02/2013 6:09 AM PDT) + +---------+ + + + | Component | Value | Ref Range | Performed | Pathologist | | | | | At | Signature | + +---------+ + + + | Albumin | 2.6 (L) | 3.5 - 5.0 g/dL | [facility] | | [facility] | [facility] | | [facility] | | | | | | [facility] | | | | | | [facility] | | | | | | LABORATORY | | + +---------+ + + + + + | Specimen | + + | | + + + + + + + | Performing | Address | City/State/Zipcode | Phone Number | | Organization | | | | + + + + + | [facility] | [address] | [place] [address] | | | [facility] | | | | | LAB[facility]ATORY | | | | + + + + + TSH (06/02/2013 5:45 AM PDT) + +-------+ + + + | Component | Value | Ref Range | Performed | Pathologist | | | | | At | Signature | + +-------+ + + + | TSH | 2.39 | 0.45 - 5.10 | [facility] | | | | | uIU/mL | [facility] | | | | | | [facility] | | | | | | [facility] | | | | | | [facility]ENTER | | | | | | LABORATORY | | + +-------+ + + + + + | Specimen | + + | | + + + + + + + | Performing | Address | City/State/Zipcode | Phone Number | | Organization | | | | + + + + + | [facility] | [address] | [place] [address] | | | [facility] | | | | | LAB[facility]ATORY | | | | + + + + + CBC no Differential (06/01/2013 8:24 AM PDT) + +-------+ + + + | Component | Value | Ref Range | Performed | Pathologist | | | | | At | Signature | + +-------+ + + + | WBC | 10.8 | 3.8 - 11.0 K/uL | [facility] | | | | [facility] | | [facility] | | [facility] | | | | | | [facility] | | | | | | [facility] | | | | | | LABORATORY | | + +-------+ + + + | RBC | 4.00 | 3.70 - 5.10 | [facility] | | | | | M/uL | [facility] | | | | | | [facility] | | | | | | [facility] | | | | | | [facility]ENTER | | | | | | LABORATORY | | + +-------+ + + + | Hemoglobin | 12.1 | 11.3 - 15.5 | [facility] | | | | | g/dL | [facility] | | | | | | [facility] | | | | | | [facility] | | | | | | CENTER | | | | | | LABORATORY | | + +-------+ + + + | Hematocrit | 35.2 | 34.0 - 46.0 % | [facility] | | | | | | [facility] | | | | | | [facility] | | | | | | [facility] | | | | | | [facility]ENTER | | | | | | LABORATORY | | + +-------+ + + + | MCV | 87.8 | 80.0 - 100.0 fL | [facility] | | | | | | [facility] | | | | | | [facility] | | | | | | [facility] | | | | | | [facility]ENTER | | | | | | LABORATORY | | + +-------+ + + + | MCH | 30.3 | 27.0 - 34.0 pg | [facility] | | | | | | [facility] | | | | | [facility] | | | | | | [facility] | | | | | | [facility] | | | | | | LABORATORY | | + +-------+ + + + | MCHC | 34.5 | 32.0 - 35.5 | [facility] | | | | | g/dL | [facility] | | | | | | [facility] | | | | | | [facility] | | | | | | CENTER | | | | | | LABORATORY | | + +-------+ + + + | RDW-CV | 13.8 | 11.0 - 15.5 % | [facility] | | | | | | [facility] | | | | | | [facility] | | | | | | [facility] | | | | | | [facility]ENTER | | | | | | LABORATORY | | + +-------+ + + + | Platelet | 186 | 150 - 400 K/uL | [facility] | | | Count | | | [facility] | | | | | | [facility] | | | | | | [facility] | | | | | | [facility]ENTER | | | | | | LABORATORY | | + +-------+ + + + + + | Specimen | + + | | + + + + + + + | Performing | Address | City/State/Zipcode | Phone Number | | Organization | | | | + + + + + | [facility] | [address] | [place] [address] | | | [facility] | | | | | LABORATORY | | | | + + + + + documented in this encounter Visit Diagnoses Not on filedocumented in this encounter"
--- OUTSIDE RECORDS SUMMARY | ~2019-09-07 | XMS | Encounter Summary ---
Demographics + + + | Address | [address] | | | [place] [address] | + + + | Home Phone | | + + + | Preferred Language | Unknown | + + + | Marital Status | | + + + | Baptism Affiliation | Unknown | + + + | Race | Unknown | + + + | Ethnic Group | Unknown | + + + Author + + + | Author | [facility] | | | and Darylana | + + + | Organization | [facility] | | | [...] Team Providers + +------+ + | Care Veneer Marker Name | Role | Phone | + +------+ + | Giovanna Rivera MD | PCP | | + +------+ + Reason for Visit + + + | Reason | Comments | + + + | Irregular Heart Beat | ANIKA Event Monitor | + + + Encounter Details +--------+ + + + + | Date | Type | Department | Care Team | Description | +--------+ + + + + | 07/17/ | Orders Only | [facility] | Alan, | Ventricular | | 2013 | | [facility] | Ines Leung MD 62 | tachycardia (HCC) | | | | [address] | [address] | (Primary Dx) | | | | [address] [place], [place] | [address] [place] | | | | | [address] | [address] | | | | | [phone] | | | +--------+ + + + [...] + + documented as of this encounter Progress Notes Kristian Valdez, Technologist - 07/17/2013 9:13 AM PSTThe mobile service rv technician confirmed patient ID corresponds to the correct monitor and confirmed start time. Instructions were discussed wit h the patient. The patient was prepped and the pads were attached to the monitor and then to the patient. The Event Monitor was connected and confirmed to be functioning appropriately. documented in this encounter Plan of Treatment Not on filedocumented as of this encounter Procedures + +--------+ + + + | Procedure Name | Priori | Date/Time | Associated Diagnosis | Comments | | | ty | | | | + +--------+ + + + | EVENT MONITOR 4 WEEK | Routin | 08/04/2013 | Ventricular | Results for this | | | e | 12:38 PM | tachycardia (HCC) | procedure are in the | | | | PST | | results section. | + +--------+ + + + documented in this encounter Results EVENT MONITOR 4 WEEK (08/04/2013 12:38 PM PST) + + + | Narrative | Performed At | + + + | [facility] | | | MD Alan 08/04/2013 12:38 PATIENT NAME: Therese Whitney | | | Irene : 1990: AGE: 23 y.o.PRIMARY CARE | | | PROVIDER: Giovanna Rivera Event Monitor Report July 17, 2013 | | | Clinical Indications:1. Ventricular tachycardia EVENT MONITOR 4 WEEK | | | Procedure:The mobile service rv technician confirmed that the patient's ID | | | corresponds to the correct monitor and confirmed start time. | | | Instructions were discussed with the patient. The patient was | | | prepped and the pads were attached to the monitor and then to the | | | patient. The Event Monitor was connected and confirmed to be | | | functioning appropriately. Findings: Event Date Symptoms Findings | | | Heart Rates 05/27/2013 4:29:00 PM asymptomatic sinus rhythm, | | | tachycardia Heart Rate: 65.0 - 104.8 07/17/2013 8:42:00 AM Unknown | | | Sinus Arrhythmia - Bradycardia Heart Rate: 58.8 - 107.3 Conclusion:1. | | | Patient had access to the monitor for a 4 week period.2. Only 2 | | | strips were submitted with the first being the resting strip showing | | | sinus rhythm with unremarkable rate. A second strip showing sinus | | | rhythm with heart rates that were unremarkable and rare PACs also | | | submitted. 3. No symptoms reported, and no pathologic tachycardia | | | or bradycardia arrhythmias were captured. Comment: Limited data | | | submitted. Otherwise this was a benign study. | | | | | |Findings: | | | | | |Event Date Symptoms Findings Heart Rates | | |05/27/2013 4:29:00 PM asymptomatic sinus rhythm, tachycardia Heart | | |Rate: 65.0 - 104.8 | | |07/17/2013 8:42:00 AM Unknown Sinus Arrhythmia - Bradycardia | | |Heart Rate: 58.8 - 107.3 | | | | | |Conclusion: | | |1. Patient had access to the monitor for a 4 week period. | | |2. Only 2 strips were submitted with the first being the resting | | |strip showing sinus rhythm with unremarkable rate. A second | | |strip showing sinus rhythm with heart rates that were | | |unremarkable and rare PACs also submitted. | | |3. No symptoms reported, and no pathologic tachycardia or | | |bradycardia arrhythmias were captured. | | |Comment: Limited data submitted. Otherwise this was a benign | | |study. | | | | | + + + + + | Procedure Note | + + | Kristian Valdez, Technologist - 07/17/2013 9:16 AM PST Formatting of this note might | | be different from the original.PATIENT NAME: Therese Irene : 1990: | | AGE: 23 y.o.PRIMARY CARE PROVIDER: Giovanna Vidales Monitor ReportNov | | 2012Clinical Indications:1. Ventricular tachycardia EVENT MONITOR 4 WEEK Procedure:The | | mobile service rv technician confirmed that the patient's ID corresponds to the correct monitor and | | confirmed start time. Instructions were discussed with the patient. The patient was | | prepped and the pads were attached to the monitor and then to the patient. The Event | | Monitor was connected and confirmed to be functioning appropriately.Findings:Event Date | | Symptoms Findings Heart Rates 05/27/2013 4:29:00 PM asymptomatic sinus rhythm, | | tachycardia Heart Rate: 65.0 - 104.8 07/17/2013 8:42:00 AM Unknown Sinus Arrhythmia - | | Bradycardia Heart Rate: 58.8 - 107.3 Conclusion:1. Patient had access to the monitor | | for a 4 week period.2. Only 2 strips were submitted with the first being the resting | | strip showing sinus rhythm with unremarkable rate. A second strip showing sinus rhythm | | with heart rates that were unremarkable and rare PACs also submitted. 3. No symptoms | | reported, and no pathologic tachycardia or bradycardia arrhythmias were captured. | | Comment: Limited data submitted. Otherwise this was a benign study. | |monitor and then to the patient. The Event Monitor was connected and confirmed to be funct ioning appropriately. | | | |Findings: | | | |Event Date Symptoms Findings Heart Rates | |05/27/2013 4:29:00 PM asymptomatic sinus rhythm, tachycardia Heart Rate: 65.0 - 104.8 | |07/17/2013 8:42:00 AM Unknown Sinus Arrhythmia - Bradycardia Heart Rate: 58.8 - 107.3 | | | |Conclusion: | |1. Patient had access to the monitor for a 4 week period. | |2. Only 2 strips were submitted with the first being the resting strip showing sinus rhyth m with unremarkable rate. A second strip showing sinus rhythm with heart rates that were un remarkable and rare PACs also submitted. | |3. No symptoms reported, and no pathologic tachycardia or bradycardia arrhythmias were cap tured. | |Comment: Limited data submitted. Otherwise this was a benign study. | | | + + documented in this encounter Visit Diagnoses + + | Diagnosis | + + | Ventricular tachycardia (HCC) - Primary Paroxysmal ventricular tachycardia | + + documented in this encounter"
--- OUTSIDE RECORDS SUMMARY | ~2019-09-07 | XMS | Encounter Summary ---
Demographics + + + | Address | [address] | | | [place] [address] | + + + | Home Phone | | + + + | Preferred Language | Unknown | + + + | Marital Status | | + + + | Tenriism Affiliation | Unknown | + + + | Race | Unknown | + + + | Ethnic Group | Unknown | + + + Author + + + | Author | [facility] | | | and Darylana | + + + | Organization | [facility] | | | [...] Team Providers + +------+ + | Care Corporate Legal Intern Name | Role | Phone | [...] | | [address] | [place] [address] | | | | | [address] | | | | | | [phone] | | | +--------+ + + + [...]
--- OUTSIDE RECORDS SUMMARY | ~2019-09-07 | XMS | Encounter Summary ---
Demographics + + + | Address | [address] | | | [place], [place] [address] | + + + | Home Phone | | + + + | Preferred Language | Unknown | + + + | Marital Status | | + + + | Caodaism Affiliation | Unknown | + + + | Race | Unknown | + + + | Ethnic Group | Other Race | + + + Author + + + | Author | [facility] | + + + | Organization | [facility] | + + + | Address | Unknown | + + + | Phone | Unavailable | + + + Support + + +---------+ + | Name | Relationship | Address | Phone | + + +---------+ + | Per None, PT | ECON | Unknown | Unavailable | + + +---------+ + Care Team Providers + +------+ + | Care Electronic Device Repairer Name | Role | Phone | + +------+ + | Michael Branch MD | PCP | | + +------+ + Reason for Referral Consultation (Routine) +--------+--------+ + + + + | Status | Reason | Specialty | Diagnoses / | Referred By | Referred To | | | | | Procedures | Contact | Contact | +--------+--------+ + + + + | Closed | | Gastroenterol | Diagnoses | Nathalia Johnson | | | | ogcrystal | LLQ | MD Seth | [address] | | | | | abdominal | [address] | [address] | | | | | pain | [facility] | Mailcode: | | | | | Unintended | Rd | Center for | | | | | weight loss | [facility] [place] | Health and | | | | | Procedures | [address] | Healing, | | | | | CONSULT TO | Phone: | [address] | | | | | GASTROENTERO | [phone] | [facility] [place] | | | | | [place] | Fax: | [address] | | | | | | [phone] | Phone: | | | | | | | [phone] | | | | | | | Fax: | | | | | | | [phone] | +--------+--------+ + + + + Encounter Details +--------+ + + + + | Date | Type | Department | Care Team | Description | +--------+ + + + + | 05/20/ | Talya | [facility] | Seth Johnson MD | RE:urine | | 2017 | Encounter | [facility] | [address] | | | | | [facility] | [place] | | | | | [address] | [place] [address] | | | | | [address] | [phone] | | | | | [facility] | | | | | | Physician's | | | | | | [address] [place] | | | | | | [place] [address] | | | | | | [phone] | | | +--------+ + + + [...] filedocumented as of this encounter Visit Diagnoses + + | Diagnosis | + + | LLQ abdominal pain - Primary Abdominal pain, left lower quadrant | + + | Unintended weight loss | + + documented in this encounter"
--- OUTSIDE RECORDS SUMMARY | ~2019-09-07 | XMS | Encounter Summary ---
Demographics + + + | Address | [address] | | | [place] [address] | + + + | Home Phone | | + + + | Preferred Language | Unknown | + + + | Marital Status | | + + + | Anabaptist Affiliation | Unknown | + + + | Race | Unknown | + + + | Ethnic Group | Unknown | + + + Author + + + | Author | [facility] | | | and Darylana | + + + | Organization | [facility] | | | and [...] Team Providers + +------+ + | Care Delivery Room Supervisor Name | Role | Phone | + +------+ + | Giovanna Rivera MD | PCP | | + +------+ + Encounter Details +--------+ + + + + | Date | Type | Department | Care Team | Description | +--------+ + + + + | 09/03/ | Abstract | [facility] | Unknown, Doctor | Family history of | | 2013 | | Conversion Location | | mitral valve disease | | | | | (Fax) | (Primary Dx); | | | | | | Paroxysmal | | | | | | ventricular | | | | | | tachycardia (HCC); | | | | | | Syncope ; Dizziness | | | | | | ; Palpitations; | | | | | | Nonspecific low | | | | | | blood pressure | | | | | | reading; 39 weeks | | | | | | gestation of | | | | | | [...] + + + | Blood Pressure | 116/78 | 05/27/2013 2:55 PM | | | | | PDT | | + + + + + | Pulse | - | - | | + [...] + + + + | Weight | 60.3 kg (133 lb) | 05/27/2013 2:55 PM | | | | | PDT | | + + + + + | Height | 167.6 cm (5' 6") | 05/27/2013 2:55 PM | | | | | PDT | | + + + + + | Body Mass Index | 21.47 | 05/27/2013 2:55 PM | | | | | PDT | | + + + + + documented in this encounter Plan of Treatment Not on filedocumented as of this encounter Visit Diagnoses + + | Diagnosis | + + | Family history of mitral valve disease - Primary Other and unspecified mitral valve | | diseases | + + | Paroxysmal ventricular tachycardia (HCC) Paroxysmal ventricular tachycardia | + + | Syncope Syncope and collapse | + + | Dizziness Dizziness and giddiness | + + | Palpitations | + + | Nonspecific low blood pressure reading | + + | 39 weeks gestation of state, incidental | + + documented in this encounter
--- OUTSIDE RECORDS SUMMARY | ~2019-09-07 | XMS | Encounter Summary ---
Demographics + + + | Address | [address] | | | [place], [place] [address] | + + + | Home Phone | | + + + | Preferred Language | Unknown | + + + | Marital Status | | + + + | Mosque Affiliation | Unknown | + + + | Race | Unknown | + + + | Ethnic Group | Other Race | + + + Author + + + | Author | [facility] | + + + | Organization | [facility] | + + + | Address | Unknown | + + + | Phone | Unavailable | + + + Support + + +---------+ + | Name | Relationship | Address | Phone | + + +---------+ + | Per None, PT | ECON | Unknown | Unavailable | + + +---------+ + Care Team Providers + +------+ + | Care Environmental Monitoring Specialist Name | Role | Phone | + [...] | | | | | Center at [facility] | [address] [place], | | | | | [address] | [place] [address] | | | | | [address] | [phone] | | | | | [facility] | | | | | | Physician's | | | | | | [address] [place], | | | | | | [place] [address] | | | | | | [phone] | | | +--------+ + + + [...] [facility] | [address] | [place], [place] | | | | [address] | [address] | | + + + + + documented in this encounter Visit Diagnoses + + | Diagnosis | + + | Unintended weight loss - Primary | + + documented in this encounter"
--- OUTSIDE RECORDS SUMMARY | ~2019-09-07 | XMS | Encounter Summary ---
Demographics + + + | Address | [address] | | | [place] [address] | + + + | Home Phone | | + + + | Preferred Language | Unknown | + + + | Marital Status | | + + + | Muslim Affiliation | Unknown | + + + | Race | Unknown | + + + | Ethnic Group | Unknown | + + + Author + + + | Author | [facility] | | | and Darylana | + + + | Organization | [facility] | | | and [...] Team Providers + +------+ + | Care Aadc Plans Staff Officer Name | Role | Phone | + +------+ + | Giovanna Rivera MD | PCP | | + +------+ + Encounter Details +--------+ + + + + | Date | Type | Department | Care Team | Description | +--------+ + + + + | 02/05/ | Hospital | [facility] | [place], | | | 2013 - | Encounter | [facility] | Ines Leung MD [address] | | | | | [facility] | [address] | | | 08/11/ | | [facility] [address] | [address] [place], [place] | | [address] | | [address] [place], [place] | [address] | | | | | [address] | | | | | | [phone] | | | +--------+ + + + [...]
--- OUTSIDE RECORDS SUMMARY | ~2019-09-07 | XMS | Encounter Summary ---
Demographics + + + | Address | [address] | | | [place] [address] | + + + | Home Phone | | + + + | Preferred Language | Unknown | + + + | Marital Status | | + + + | Gnosticism Affiliation | Unknown | + + + [...] Team Providers + +------+ + | Care Family Law Paralegal Name | Role | Phone | + [...]
--- OUTSIDE RECORDS SUMMARY | ~2019-09-07 | XMS | Clinical Summary ---
Demographics + + + | Address | [address] | | | [place] [address] | + + + | Home Phone | | + + + | Preferred Language | Unknown | + + + | Marital Status | | + + + | Pentecostal Affiliation | Unknown | + + + | Race | Unknown | + + + | Ethnic Group | Other Race | + + + Author + + + | Author | [facility] | + + + | Organization | [facility] | + + + | Address | Unknown | + + + | Phone | Unavailable | + + + Support + + +---------+ + | Name | Relationship | Address | Phone | + + +---------+ + | Noble Ho PT | ECON | Unknown | Unavailable | + + +---------+ + Care Team Providers + +------+ + | Care Java Groovy Developer Name | Role | Phone | + +------+ + | Michael Branch MD | PCP | | + +------+ + Source Comments ABDOUL is fully live on both [facility] and [facility] Allergies + + + + + + | Active Allergy | Reactions | Severity | Noted | Comments | | | | | Date | | + + + + + + | Sulfamethoxazole-Tri | Unknown | | 05/01/20 | | | methoprim | | | 17 | | + + + + + + | Bupropion Hcl | Unknown | | 05/01/20 | | | | | | 17 | | + + + + + + Medications + + + +---------+------+------+-------+ | Medication | Sig | Dispensed | Refills | Star | End | Statu | | | | | | t | Date | s | | | | | | Date | | | + + + +---------+------+------+-------+ | oxyCODONE | Take 10 mg by mouth | | 0 | | | Activ | | (immediate release) | three times daily. | | | | | e | | 10 mg oral tablet | | | | | | | + + + +---------+------+------+-------+ | traZODone 50 mg | Take 50 mg by mouth | | 0 | 08/0 | | Activ | | oral tablet | once daily at | | | 2/20 | | e | | | bedtime. | | | 17 | | | + + + +---------+------+------+-------+ | amitriptyline 25 | Take 50 mg by mouth | | 0 | | | Activ | | mg oral tablet | once daily at | | | | | e | | | bedtime. | | | | | | + + + +---------+------+------+-------+ | NORTREL 1/35 (28) | Take 1 tablet by | | 0 | 07/2 | | Activ | | 1-35 mg-mcg oral | mouth once daily. | | | 4/20 | | e | | tablet | | | | 17 | | | + + + +---------+------+------+-------+ | promethazine 25 mg | Take 25 mg by mouth | | 0 | 07/2 | | Activ | | oral tablet | once daily as | | | 4/20 | | e | | | needed. | | | 17 | | | + + + +---------+------+------+-------+ | sertraline 50 mg | Take 50 mg by mouth | | 0 | | | Activ | | oral tablet | once daily. | | | | | e | + + + +---------+------+------+-------+ | ferrous sulfate | Take 325 mg by mouth | | 0 | | | Activ | | 325 mg (65 mg iron) | once daily. | | | | | e | | oral tablet | | | | | | | + + + +---------+------+------+-------+ | albuterol 90 | Inhale 1 puff by | | 0 | | | Activ | | mcg/actuation | mouth every four | | | | | e | | inhalation HFA | hours as needed. | | | | | | | aerosol inhaler | | | | | | | + + + +---------+------+------+-------+ | ascorbic acid | Take 500 mg by mouth | | 0 | | | Activ | | (vitamin C) (VITAMIN | two times daily. | | | | | e | | C) 500 mg oral | | | | | | | | tablet | | | | | | | + + + +---------+------+------+-------+ | cholecalciferol | Take 2,000 Units by | | 0 | | | Activ | | (Vitamin D3) | mouth once daily. | | | | | e | | (VITAMIN D3) 2,000 | | | | | | | | unit oral capsule | | | | | | | + + + +---------+------+------+-------+ Active Problems + + + | Problem | Noted Date | + + + | Unintended weight loss | 05/01/2017 | + + + Family History + + +------+ + | Medical History | Relation | Name | Comments | + + +------+ + | Thyroid | Brother | | | + + +------+ + | Thyroid | Mother | | | + + +------+ + + +------+--------+ + | Relation | Name | Status | Comments | + +------+--------+ + | Brother | | | | + +------+--------+ + [...] | + + + + + | Influenza (Flu) | | | | | vaccination (#1) | 9 | | | + + + + + | Pneumococcal | Aged Out | | No longer eligible | | vaccination | | | based on patient's | | | | | age to complete this | | | | | topic | + + + + + Results Not on filefrom Last 3 Months Insurance + +--------+ +--------+-------+---------+--------+ | Payer | Benefi | Subscriber | Effect | Phone | Address | Type | | | t Plan | ID | apolinar | | | | | | / | | Dates | | | | | | Group | | | | | | + +--------+ +--------+-------+---------+--------+ | MACHINE [employer] MEDICAID | 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
--- OUTSIDE RECORDS SUMMARY | ~2019-09-07 | XMS | Encounter Summary ---
Demographics + + + | Address | [address] | | | [place], [place] [address] | + + + | Home Phone | | + + + | Preferred Language | Unknown | + + + | Marital Status | | + + + | Gnosticist Affiliation | Unknown | + + + | Race | Unknown | + + + | Ethnic Group | Other Race | + + + Author + + + | Author | [facility] | + + + | Organization | [facility] | + + + | Address | Unknown | + + + | Phone | Unavailable | + + + Support + + +---------+ + | Name | Relationship | Address | Phone | + + +---------+ + | Per None, PT | ECON | Unknown | Unavailable | + + +---------+ + Care Team Providers + +------+ + | Care Operating Room Surgical Technician Name | Role | Phone | + +------+ + | Michael Branch MD | PCP | | + +------+ + Encounter Details +--------+ + + + + | Date | Type | Department | Care Team | Description | +--------+ + + + + | 05/01/ | MyChart | [facility] | Seth Johnson MD | RE:labs | | 2017 | Encounter | [facility] | [address] | | | | | Center at [facility] | [facility] [place], | | | | | [address] | [place] [address] | | | | | [address] | [phone] | | | | | [facility] | | | | | | Physician's | | | | | | [place], | | | | | | [place] [address] | | | | | | [phone] | | | +--------+ + + + [...]
--- OUTSIDE RECORDS SUMMARY | ~2019-09-07 | XMS | Clinical Summary ---
Demographics + + + | Address | [address] | | | [place] [address] | + + + | Home Phone | | + + + | Preferred Language | Unknown | + + + | Marital Status | Unknown | + + + | Presybeterian Affiliation | Unknown | + + + | Race | Unknown | + + + | Ethnic Group | Unknown | + + + Author + + + | Author | [facility] (Historical as of | | | 04-11-19) | + + + | Organization | [facility] (Historical as of | | | 04-11-19) | + + + | Address | Unknown | + + + | Phone | Unavailable | + + + Support + + +---------+ + | Name | Relationship | Address | Phone | + + +---------+ + | None,Listed | ECON | Unknown | | + + +---------+ + Care Team Providers + +------+ + | Care Family Specialist Name | Role | Phone | + +------+ + PP | Unavailable | + +------+ + Allergies + + + + + + | Active Allergy | Reactions | Severity | Noted | Comments | | | | | Date | | + + + + + + | Sulfamethoxazole-Tri | Other (See Comments) | Medium | 06/29/20 | other | | methoprim | | | 16 | | + + + + + + | Bupropion | Other (See Comments) | Medium | 06/29/20 | "numbness" | | | | | 16 | | + + + + + + Current Medications + + +-------+---------+------+------+-------+ | Prescription | Sig. | Disp. | Refills | Star | End | Statu | | | | | | t | Date | s | | | | | | Date | | | + + +-------+---------+------+------+-------+ | amitriptyline | Take 25 mg by mouth | | | | | Activ | | (ELAVIL) 25 MG | nightly. | | | | | e | | tablet | | | | | | | + + +-------+---------+------+------+-------+ | traZODone | Take 100 mg by mouth | | | | | Activ | | (DESYREL) 100 MG | nightly. | | | | | e | | tablet | | | | | | | + + +-------+---------+------+------+-------+ | | Take 1 tablet by | | | | | Activ | | HYDROcodone-acetamin | mouth every 6 (six) | | | | | e | | ophen (NORCO) 10-325 | hours as needed for | | | | | | | MG per tablet | Pain (1/2 tab every | | | | | | | | 3 hours). | | | | | | + + +-------+---------+------+------+-------+ Active Problems No known active problems Family History + + +------+ + | Medical History | Relation | Name | Comments | + + +------+ + | Coronary art dis | Father | | | + + +------+ + | Hypertension | Father | | | + + +------+ + | Kidney disease | Father | | | + + +------+ + | Coronary art dis | Mother | | | + + +------+ + | Early | Mother | | | + + [...] Smokeless Tobacco: | | | | | Current User | | | | + +---+---+---+ + [...] on file | | + + + Last Filed Vital Signs + + + + | Vital Sign | Reading | Time Taken | + + + + | Blood Pressure | 98/70 | 06/29/2016 1:34 PM PDT | + + + + | Pulse | 87 | 06/29/2016 1:34 PM PDT | + + + + | Temperature | - | - | + + + + | Respiratory Rate | - | - | + + + + | Oxygen Saturation | 99% | 06/29/2016 1:34 PM PDT | + + + + | Inhaled Oxygen | - | - | | Concentration | | | + + + + | Weight | 45 kg (99 lb 3.2 oz) | 06/29/2016 1:34 PM PDT | + + + + | Height | - | - | + + + + | Body Mass Index | - | - | + + + + Plan of Treatment + + + + + | Health Maintenance | Due Date | Last Done | Comments | + + + + + | Vaccine: | | | | | Dtap/Tdap/Td (1 - | 0 | | | | Tdap) | | | | + + + + + | Cervical Cancer | | | | | Screening (Pap) | 2 | | | + + + + + | Vaccine: Influenza | | | | | (#1) | 9 | | | + + + + + Results Not on filefrom Last 3 Months Insurance + +--------+ +------+-------+ + | Payer | Benefi | Subscriber | Type | Phone | Address | | | t Plan | ID | | | | | | / | | | | | | | Group | | | | | + +--------+ +------+-------+ + | MEDICAID | [place] | [id number] | | | [address] | | | [place] | | | | [place] | | | [place] | | | | [address] | | | [employer] | | | | | + +--------+ +------+-------+ + + +--------+ +--------+ + + | Guarantor Name | Accoun | Relation to | Date | Phone | Billing Address | | | t Type | Patient | of | | | | | | | | | | + +--------+ +--------+ + + | MADRID | Person | Self [birth year] Home: | [address] | | [place] [address]A | hardik/Guy | | 1989 | [phone] [place] [address] | | | azucena | | | [phone] | | + +--------+ +--------+ + +
--- OUTSIDE RECORDS SUMMARY | ~2019-09-07 | XMS | Encounter Summary ---
Demographics + + + | Address | [address] | | | [place] [address] | + + + | Home Phone | | + + + | Preferred Language | Unknown | + + + | Marital Status | | + + + | Sikhism Affiliation | Unknown | + + + | Race | Unknown | + + + | Ethnic Group | Unknown | + + + Author + + + | Author | [facility] | | | and [place] | + + + | Organization | [facility] | | | and [...] Team Providers + +------+ + | Care Supervisor Solder Making Name | Role | Phone | + [...] Ventricular | | 2013 | | [facility] | Ines Leung MD 62 | tachycardia (HCC) | | | | [address] | [address] | (Primary Dx) | | | | [address] [place], [place] | [address] [place] | | | | | [address] | [address] | | | | | [phone] | | | +--------+ + + + [...] Valdez, Technologist - 07/17/2013 9:13 AM PSTThe cryptographic technician confirmed patient ID corresponds to the [...] MONITOR 4 WEEK | | | Procedure:The cryptographic technician confirmed that the patient's ID | [...] EVENT MONITOR 4 WEEK Procedure:The | | cryptographic technician confirmed that the patient's ID corresponds [...]
--- OUTSIDE RECORDS SUMMARY | ~2019-09-07 | XMS | Encounter Summary ---
Demographics + + + | Address | [address] | | | [place] [address] | + + + | Home Phone | | + + + | Preferred Language | Unknown | + + + | Marital Status | | + + + | Hinduism Affiliation | Unknown | + + + | Race | Unknown | + + + | Ethnic Group | Unknown | + + + Author + + + | Author | [facility] | | | and [place]aryl[place] | + + + | Organization | [facility] | | | [...] Team Providers + +------+ + | Care Flame Channeler Name | Role | Phone | + +------+ + | Giovanna Rivera MD | PCP | | + +------+ + Encounter Details +--------+ + + + + | Date | Type | Department | Care Team | Description | +--------+ + + + + | 02/07/ | Hospital | [facility] | [facility], | | | 2012 | Encounter | [facility] | MD Giovanna [address] | | | | [address] [place], | | | | | [address] [place], | [place] [address] | | | | | [place] [address] | [phone] | | | | | [phone] | | | +--------+ + + + [...] SACR[facility] | [address] | [place] [address] | | | [facility] | | | | | LABORATORY [...] - 1.030 | [facility] | | | [place] | | | [facility] | | | [...] + + | [facility] | [address] | [place] [address] | | | [facility] | | | | | LABORATORY [...] + + | [facility] | [address] | [place] [address] | | | [facility] | | | | | LABORATORY | | | | + + + + + documented in this encounter Visit Diagnoses Not on filedocumented in this encounter"
--- OUTSIDE RECORDS SUMMARY | ~2019-09-07 | XMS | Encounter Summary ---
Demographics + + + | Address | [address] | | | [place], [place] [address] | + + + | Home Phone | | + + + | Preferred Language | Unknown | + + + | Marital Status | | + + + | Confucianist Affiliation | Unknown | + + + | Race | Unknown | + + + | Ethnic Group | Other Race | + + + Author + + + | Author | [facility] | + + + | Organization | [facility] | + + + | Address | Unknown | + + + | Phone | Unavailable | + + + Support + + +---------+ + | Name | Relationship | Address | Phone | + + +---------+ + | Per None, PT | ECON | Unknown | Unavailable | + + +---------+ + Care Team Providers + +------+ + | Care Engineering Aid Name | Role | Phone | + [...] | on | [facility] | [address] | | | | | [facility] | [place], | | | | | [address] | [place] [address] | | | | | [address] | [phone] | | | | | [facility] | | | | | | Physician's | | | | | | [facility] [place], | | | | | | [place] [address] | | | | | | [phone] | | | +--------+ + + + [...]
--- OUTSIDE RECORDS SUMMARY | ~2019-09-07 | XMS | Encounter Summary ---
Demographics + + + | Address | [address] | | | [place], [place] [address] | + + + | Home Phone [...] Team Providers + +------+ + | Care Director Agricultural Services Name | Role | Phone | + +------+ + | No Pcp Per Patient | PCP | Unavailable | + +------+ + Encounter Details +--------+ + + + + | Date | Type | Department | Care Team | Description | +--------+ + + + + | 03/12/ | Abstract | [facility] | Clinic, | | | 2016 | | [facility] | Endocrinology | | | | | [facility] | | | | | | [address] | | | | | | [address] | | | | | | Physician's Pavilion | | | | | | Physician's | | | | | | [facility] | | | | | | [place] [address] | | | | | | [phone] | | | +--------+ + + + [...]
--- OUTSIDE RECORDS SUMMARY | ~2019-09-07 | XMS | Encounter Summary ---
Demographics + + + | Address | [address] | | | [place], [place] [address] | + + + | Home Phone | | + + + | Preferred Language | Unknown | + + + | Marital Status | | + + + | Amish Affiliation | Unknown | + + + | Race | Unknown | + + + | Ethnic Group | Other Race | + + + Author + + + | Author | [facility] | + + + | Organization | [facility] | + + + | Address | Unknown | + + + | Phone | Unavailable | + + + Support + + +---------+ + | Name | Relationship | Address | Phone | + + +---------+ + | Per None, PT | ECON | Unknown | Unavailable | + + +---------+ + Care Team Providers + +------+ + | Care Wind Science And Planning Name | Role | Phone | + +------+ + | Michael Branch MD | PCP | | + +------+ + Reason for Visit + + + | Reason | Comments | + + + | Referral To | | | Gastroenterology | | + + + Encounter Details +--------+ + + + + | Date | Type | Department | Care Team | Description | +--------+ + + + + | 08/20/ | Abstract | [facility] | Clinic, | Referral To | | 2016 | | Center at [facility] [address] | Gastroenterology | Gastroenterology | | | | [address] | | | | | | Mailcode: Center | | | | | | for [facility] and | | | | | | Healing, [address] | | | | | | [place], [place] | | | | | | [address] | | | | | | [phone] | | | +--------+ + + + [...]
--- OUTSIDE RECORDS SUMMARY | ~2019-09-07 | XMS | Encounter Summary ---
Demographics + + + | Address | [address] | | | [place] [address] | + + + | Home Phone | | + + + | Preferred Language | Unknown | + + + | Marital Status | | + + + | Gnosticist Affiliation | Unknown | + + + | Race | Unknown | + + + | Ethnic Group | Unknown | + + + Author + + + | Author | [facility] | | | and [place] | + + + | Organization | [facility] | | | and [place] | + + + | Address | Unknown | + + + | Phone | Unavailable | + + + Support + + + + + | Name | Relationship | Address | Phone | + + + + + | Bertt Luis | ECON | Unknown | | + + + + + | Norma Flores | ECON | UNK | | | | | [place] | | + + + + + Care Team Providers + +------+ + | Care Nuclear Plant Instrument Technician Name | Role | Phone | [...] | | | | | [facility] | [place], [place] | [address] | | | | | Procedures | [address] | [place], [place] | | | | | C/C | Phone: | [address] | | | | | | [phone] | | | | | | | Fax: | | | | | | | [phone] | | +--------+--------+ + + + + Encounter Details +--------+ + + + + | Date | Type | Department | Care Team | Description | +--------+ + + + + | 02/10/ | Procedure | [facility] | Otero Arron | Placenta previa | | 2012 | visit | [facility] | MD [address] | without hemorrhage, | | | | CLINIC | [address] | antepartum (Primary | | | | [address] | [place] [address] | Dx); Prior | | | | [address] [place], [place] | [phone] | complicated by DVT, | | | | [address] | | antepartum; | | | | [phone] | | | | | | | [...] 02/10/2013 8:44 PM Drew Rivera MD [address] [place] [address] 02/10/2013 Re: Therese Irene Dear Giovanna Rivera [...] Glucose: 70 Ms. Irene was seen by [facility] on 02/05/13 for a echocardiogram for s yncope. A transthoracic echocardiogram was performed and revealed normal chamber sizes and n ormal biventricular systolic function with a left ventricular ejection fraction of 55-60%. T here was no clinically significant valvular disease and the remainder of the study was edgar l. [facility]13 . She [...] recommend that records be requeste d from [facility] regarding her care. She describes a superficial [...] 1. Obtain records regarding 2010 DVT from [facility] [place] 2. Consider baby aspirin 82 mg po [...] help, please feel free to call the [facility], for Maternal Medicine. If you need to contact me directly to discuss these recommendations please contact me at begin_of_the_skype_highlighting [phone] FREE end_of_the_skype_highlighting. Arron Otero MD Perinatologist [facility] for Maternal [facility] I completed this consultation [...] Exam, 02/10/2013 Study UID: | | | [id number] Exam Information | | | Name: Therese [...] | Arron Otero, | | | [employer] Flatbed Truck Driver: Jacklyn Escobar RDMS Electronically signed | | | by above physician. | | + + + + + | Procedure Note | + + | Arron Otero MD - 02/10/2013 8:44 PM PDT Formatting of this note might be | | different from the original.Therese Irene OB Exam, 02/10/2013 Study UID: | | [id number] Exam Information Name: Therese Irene Exam | [...] information and recommendations. | | Arron Otero M.D.[employer] Flat[employer] Driver: Jacklyn | | BELINDA EsocbarElectronically signed by above physician. | | Gms: [...] | | | |Arron Otero M.D. | |[employer] Driver: Jacklyn Escobar RDMS | | | |Electronically [...]
--- OUTSIDE RECORDS SUMMARY | ~2019-09-07 | XMS | Clinical Summary ---
Demographics + + + | Address | [address] | | | [place] [address] | + + + | Home Phone | | + + + | Preferred Language | Unknown | + + + | Marital Status | | + + + | Latter Day Affiliation | Unknown | + + + | Race | Unknown | + + + | Ethnic Group | Unknown | + + + Author + + + | Author | [facility] | | | and [place] | + + + | Organization | [facility] | | | and [...] Team Providers + +------+ + | Care Event Set Up Specialist Name | Role | Phone | [...] 0 | | | Activ | | [id number] | mouth Daily. | | | | [...] + + + + | Overview: SEB [id number] Decision | + + Family History + [...] | [employer] | [facility] | [id number] | | [phone] | | Medica | [...] 1989 | [phone] | [place] [address] | | | [place] | | | 9 (Home) | | + +--------+ +--------+ + + Advance Directives + + + + + | Type | Date Recorded | Patient | Explanation | | | | Stone Hand | | + + + + + | Power of | | | | | Security Operations Specialist | | | | + + + + + | Advance | | | | | Directive | | | | + + + + +
--- OUTSIDE RECORDS SUMMARY | ~2019-09-07 | XMS | Encounter Summary ---
Demographics + + + | Address | [address] | | | [place], [place] [address] | + + + | Home Phone | | + + + | Preferred Language | Unknown | + + + | Marital Status | | + + + | Synagogue Affiliation | Unknown | + + + | Race | Unknown | + + + | Ethnic Group | Other Race | + + + Author + + + | Author | [facility] | + + + | Organization | [facility] | + + + | Address | Unknown | + + + | Phone | Unavailable | + + + Support + + +---------+ + | Name | Relationship | Address | Phone | + + +---------+ + | Per None, PT | ECON | Unknown | Unavailable | + + +---------+ + Care Team Providers + +------+ + | Care Energy Project Manager Name | Role | Phone | + +------+ + | Michael Branch MD | PCP | | + +------+ + Encounter Details +--------+------+ + + + | Date | Type | Department | Care Team | Description | +--------+------+ + + + | 05/01/ | Lab | Laboratory, | | Unintended weight | | 2016 | | Specimen Collection | | loss; LLQ abdominal | | | | at [facility] [address] Floor | | pain | | | | [address] | | | | | | [address] [place], [place] | | | | | | [address] | | | | | | [phone] | | | +--------+------+ + + + Social History + +-------+ [...] | + +--------+ + + + | FOOD COMPLETE IGE | Routin | 05/01/2017 | Unintended weight | Results for this | | PANEL | e | 3:24 PM | loss LLQ abdominal | procedure are in the | | | | PDT | pain | results section. | + +--------+ + + + | CBC (HEMOGRAM) ONLY | Routin | 05/01/2017 | Unintended weight | Results for this | | | e | 3:24 PM | loss LLQ abdominal | procedure are in the | | | | PDT | pain | results section. | + +--------+ + + + | THYROGLOBULIN AB, | Routin | 05/01/2017 | Unintended weight | Results for this | | SERUM | e | 3:24 PM | loss LLQ abdominal | procedure are in the | | | | PDT | pain | results section. | + +--------+ + + + | TISSUE | Routin | 05/01/2017 | Unintended weight | Results for this | | TRANSGLUTAMINASE | e | 3:24 PM | loss LLQ abdominal | procedure are in the | | IGA, SERUM | | PDT | pain | results section. | + +--------+ + + + | THYROID PEROXIDASE | Routin | 05/01/2017 | Unintended weight | Results for this | | AB, SERUM | e | 3:24 PM | loss LLQ abdominal | procedure are in the | | | | PDT | pain | results section. | + +--------+ + + + | VITAMIN D, | Routin | 05/01/2017 | Unintended weight | Results for this | | 25-HYDROXY, SERUM | e | 3:24 PM | loss LLQ abdominal | procedure are in the | | | | PDT | pain | results section. | + +--------+ + + + | ACTH, PLASMA | Routin | 05/01/2017 | Unintended weight | Results for this | | | e | 3:24 PM | loss LLQ abdominal | procedure are in the | | | | PDT | pain | results section. | + +--------+ + + + | COMPLETE METABOLIC | Routin | 05/01/2017 | Unintended weight | Results for this | | SET | e | 3:24 PM | loss LLQ abdominal | procedure are in the | | (NA,K,CL,CO2,BUN,CRE | | PDT | pain | results section. | | AT,GLUC,CA,AST,ALT,B | | | | | | SEKOU TOTAL,ALK | | | | | | PHOS,ALB,PROT TOTAL) | | | | | + +--------+ + + + | HIV-1,2 AB/HIV-1 P24 | Routin | 05/01/2017 | Unintended weight | Results for this | | AG SCRN | e | 3:24 PM | loss LLQ abdominal | procedure are in the | | | | PDT | pain | results section. | + +--------+ + + + | IGA, SERUM | Routin | 05/01/2017 | Unintended weight | Results for this | | | e | 3:24 PM | loss LLQ abdominal | procedure are in the | | | | PDT | pain | results section. | + +--------+ + + + | CBC ONLY | Routin | 05/01/2017 | Unintended weight | Results for this | | | e | 3:24 PM | loss LLQ abdominal | procedure are in the | | | | PDT | pain | results section. | + +--------+ + + + | FERRITIN | Routin | 05/01/2017 | Unintended weight | Results for this | | | e | 3:24 PM | loss LLQ abdominal | procedure are in the | | | | PDT | pain | results section. | + +--------+ + + + | FREE T4 | Routin | 05/01/2017 | Unintended weight | Results for this | | | e | 3:24 PM | loss LLQ abdominal | procedure are in the | | | | PDT | pain | results section. | + +--------+ + + + | TSH | Routin | 05/01/2017 | Unintended weight | Results for this | | | e | 3:24 PM | loss LLQ abdominal | procedure are in the | | | | PDT | pain | results section. | + +--------+ + + + | HEPATITIS C VIRUS | Routin | 05/01/2017 | Unintended weight | Results for this | | W/CONFIRMATION | e | 3:24 PM | loss LLQ abdominal | procedure are in the | | | | PDT | pain | results section. | + +--------+ + + + | CORTISOL, SERUM | Routin | 05/01/2017 | Unintended weight | Results for this | | | e | 3:24 PM | loss LLQ abdominal | procedure are in the | | | | PDT | pain | results section. | + +--------+ + + + documented in this encounter Results CBC (HEMOGRAM) ONLY (05/01/2017 3:24 PM PDT) + +-------+ + + + | Component | Value | Ref Range | Performed | Pathologist | | | | | At | Signature | + +-------+ + + + | WHITE CELL | 6.98 | 3.50 - 10.80 | [facility] | | | COUNT | | K/cu mm | LABORATORY | | | | | | SERVICES, | | | | | | CORE | | + +-------+ + + + | RED CELL | 4.64 | 4.00 - 5.20 | [facility] | | | COUNT | | M/cu mm | LABORATORY | | | | | | SERVICES, | | | | | | CORE | | + +-------+ + + + | HEMOGLOBIN | 14.0 | 12.0 - 16.0 | [facility] | | | | | g/dL | LABORATORY | | | | | | SERVICES, | | | | | | CORE | | + +-------+ + + + | HEMATOCRIT | 40.2 | 36.0 - 46.0 % | [facility] | | | | | | LABORATORY | | | | | | SERVICES, | | | | | | CORE | | + +-------+ + + + | MCV | 86.6 | 80.0 - 96.0 fL | [facility] | | | | | | LABORATORY | | | | | | SERVICES, | | | | | | CORE | | + +-------+ + + + | MCHC | 34.8 | 33.0 - 35.5 | [facility] | | | | | g/dL | LABORATORY | | | | | | SERVICES, | | | | | | CORE | | + +-------+ + + + | RDW SD | 38.5 | 35.1 - 46.3 fL | [facility] | | | | | | LABORATORY | | | | | | SERVICES, | | | | | | CORE | | + +-------+ + + + | PLATELET | 180 | 150 - 400 K/cu | [facility] | | | COUNT | | mm | LABORATORY | | | | | | SERVICES, | | | | | | CORE | | + +-------+ + + + | MPV | 10.9 | 9.7 - 12.3 fL | [facility] | | | | | | LABORATORY | | | | | | SERVICES, | | | | | | CORE | | + +-------+ + + + | NRBC% | 0.0 | 0.0 - 0.3 % | [facility] | | | | | | LABORATORY | | | | | | SERVICES, | | | | | | CORE | | + +-------+ + + + | NRBC# | 0.00 | 0.00 - 0.02 | [facility] | | | | | K/cu mm | LABORATORY | | | | | [...] + | [facility] | [address] | [place] [address] | | | SERVICES, CORE | [address] | | | + + + + + VITAMIN D, 25-HYDROXY, SERUM (05/01/2017 3:24 PM [...] | + + + + + | [facility] | [address] | [place] [address] | | | SERVICES, CORE | PHYLLIS [...] + | [facility] | [address] | [place] [address] | | | SERVICES, CORE | PARK [...] | + + + + + | [facility] | [address] | [place] [address] | | | DANIELLE MILLER | [address] | | | + [...] - | | | | | | [place] | | + +-------+ + + + + + | Specimen | + + | Blood - Blood | | (substance) | + + + + + + + | Performing | Address | City/State/Zipcode | Phone Number | | Organization | | | | + + + + + | [facility] | [address] | [place] [address] | | | [place] | | | | + + + [...] | + + + + + | [facility] | [address] | [place] [address] | | | SERVICES, CORE | PHYLLIS [...] + | [facility] | [address] | [place] [address] | | | SERVICES, CORE | PARK [...] modified from | [facility] | | original unstacker's approved specifications. The performance | LABORATORY | | of the AGENT CONTRACT CLERK HIV Combo test, with or without confirmation, was not | SERVICES, | | tested in pediatric patients less than 2 years of age. [facility] | SPECIAL IMM + | | [...] | + + + + + | [facility] | [address] | [place] [address] | | | SERVICES, SPECIAL | PARK [...] Jeri | | | | | | [place] Access DxI | | | | | | method.Performed by [facility] | | | | | | Laboratories,[address] | | | | | | Abdulaziz Doss, [facility] | | | | | | [address] | | | | | | [phone]. | | | | | | Antonino [...] + + | [facility] | [address] | [place], [place] | | | UNIV PTH - INTFC | | [address] | | + + + + + [...] | [facility] | | | PEROXIDASE | [facility],[address] | | REG UNIV | | | AB | Abdulaziz Doss, [place], [place] | | PTH - INTFC | | | | [address] | | | | | | [phone]. | | | | | | Antonino [...] [facility] | [address] | [place], [place] | | | UNIV PTH - INTFC | | [address] | | + + + + + [...] | + + + + + | [facility] | [address] | [place] [address] | | | SERVICES, SPECIAL | PHYLLIS [...] + | [facility] | [address] | [place] [address] | | | [place] | | | [...] | | | | | | Weak [id number] U/mL or | | | | | [...] by | | | | | | Vis[address] Path,[address] | | | | | | Abdulaziz Doss, [place] [facility] | | | | | | [address] | | | | | | [phone].Livescribe. | | | | | | Antonino varela MD, | | | | | | Lab. Director | | | | + + + + + + + + | Specimen | + + | Blood - Blood | | (substance) | + + + + + + + | Performing | Address | City/State/[facility] | Phone Number | | Organization | | | | + + + + + | [facility] | [address] | [place], [place] | | | UNIV PTH - INTFC | | [address] | | + + + + + [...] | + + + + + | [facility] | [address] | [place] [address] | | | SERVICES, CORE | PARK [...] | | | LABORATORY | | | BELARUSIAN | | | SERVICES, | | | [...] | Adult glucose reference range change effective 7-17. GFR is | [facility] | | estimated [...] + + + + + | [facility] | [address] | [place] [address] | | | SERVICES, CORE | [address] | | | + + + + + documented in this encounter Visit Diagnoses + + | Diagnosis | + + | Unintended weight loss | + + | LLQ abdominal pain Abdominal pain, left lower quadrant | + + documented in this encounter"
--- OUTSIDE RECORDS SUMMARY | ~2019-09-07 | XMS | Encounter Summary ---
Demographics + + + | Address | [address] | | | [place] [address] | + + + | Home Phone | | + + + | Preferred Language | Unknown | + + + | Marital Status | | + + + | Lutheran Affiliation | Unknown | + + + [...] Team Providers + +------+ + | Care Assistant Professor Name | Role | Phone | + +------+ + PCP | Unavailable | + +------+ + Encounter Details +--------+ + + + + | Date | Type | Department | Care Team | Description | +--------+ + + + + | 11/17/ | Hospital | [facility] | Deandre Benito MD | | | 2011 | Encounter | [facility] | [address] | | | | | [address] | | | | | [address] | [place] [address] | | | | | [place], [place] | [phone] | | | | | [address] | | | | | | [phone] | Tremayne Todd MD | | | | | | [address] [place] | | | | | | [address] [place], [place] | | | | | | [address] | | | | | | | [...]
--- OUTSIDE RECORDS SUMMARY | ~2019-09-07 | XMS | Encounter Summary ---
Demographics + + + | Address | [address] [facility] | | | [place] [address] | + + + | Home Phone | | + + + | Preferred Language | Unknown | + + + | Marital Status | | + + + | Church Affiliation | Unknown | + + + [...] Team Providers + +------+ + | Care Maintenance Scheduler Name | Role | Phone | + [...] [address] | [address] [place], [place] | | | | | [address] | [address] | | | | | [place], [place] | | | | | | [address] | | | | | | [phone] | | | +--------+ + + + [...]
--- OUTSIDE RECORDS SUMMARY | ~2019-09-07 | XMS | Encounter Summary ---
Demographics + + + | Address | [address] [facility] | | | [place] [address] | + + + | Home Phone | | + + + | Preferred Language | Unknown | + + + | Marital Status | | + + + | Mormonism Affiliation | Unknown | + + + | Race | Unknown | + + + | Ethnic Group | Unknown | + + + Author + + + | Author | [facility] | | | and [place] | + + + | Organization | [facility] | | | [...] Team Providers + +------+ + | Care Deicer Inspector Pneumatic Name | Role | Phone | + +------+ + | Giovanna Rivera MD | PCP | | + +------+ + Encounter Details +--------+ + + + + | Date | Type | Department | Care Team | Description | +--------+ + + + + | 06/01/ | Hospital | [facility] | [facility], | | | 2013 - | Encounter | [facility] | MD Giovanna [address] | | | | | [address] [place], | | | 06/02/ | | [address] [place], [place] | [place] [address] | | | 2012 | | [address] | [phone] | | | | | [phone] | | | +--------+ + + + [...] + + | [facility] | [address] [place] | [place] [address] | | | [facility] | [...] + + | [facility] | [address] | [place] [address] | | | [facility] | | | | [...] SACRED | | | | 94 mg/dL. Cambodian | | HEART | | | | [...] + + | [facility] | [address] | [place] [address] | | | [facility] | | | | | LABORATORY [...] + + | [facility] | [address] | [place] [address] | | | [facility] | [...] + + | [facility] | [address] | [place] [address] | | | [facility] | [...] + + | [facility] | [address] | [place] [address] | | | [facility] | | | | | LABORATORY | | | | + + + + + documented in this encounter Visit Diagnoses Not on filedocumented in this encounter"
--- OUTSIDE RECORDS SUMMARY | ~2019-09-07 | XMS | Encounter Summary ---
Demographics + + + | Address | [address] [facility] | | | [place], [place] [address] | + + + | Home Phone | | + + + | Preferred Language | Unknown | + + + | Marital Status | | + + + | Jehovah'S Witness Affiliation | Unknown | + + + | Race | Unknown | + + + | Ethnic Group | Other Race | + + + Author + + + | Author | [facility] | + + + | Organization | [facility] | + + + | Address | Unknown | + + + | Phone | Unavailable | + + + Support + + +---------+ + | Name | Relationship | Address | Phone | + + +---------+ + | Per None, PT | ECON | Unknown | Unavailable | + + +---------+ + Care Team Providers + +------+ + | Care Pin Machine Operator Name | Role | Phone | [...] | | | | | | [place], [place] | | | | | | [address] | | | | | | [phone] | | | +--------+------+ + + + [...] [facility] | [address] | [place] [address] | | | SERVICES, CORE | PARK [...] | + + + + + | [facility] | [address] | [place] [address] | | | SERVICES, CORE | PHYLLIS [...] [facility] | [address] | [place] [address] | | | SERVICES, CORE | PARK [...] | + + + + + | [facility] | [address] | [place] [address] | | | DANIELLE MILLER | PHYLLIS [...] - | | | | | | [place] | | + +-------+ + + + + + | Specimen | + + | Blood - Blood | | (substance) | + + + + + + + | Performing | Address | City/State/Zipcode | Phone Number | | Organization | | | | + + + + + | [facility] | [address] | [place] [address] | | | [place] | | | | + + + [...] | + + + + + | [facility] | [address] | [place] [address] | | | SERVICES, CORE | [address] | | | + + + [...] [facility] | [address] | [place] [address] | | | SERVICES, CORE | PARK [...] modified from | [facility] | | original statistician theoretical's approved specifications. The performance | LABORATORY | | of the PLAYGROUND EQUIPMENT ERECTOR HIV Combo test, with or without confirmation, was not | SERVICES, | | tested in pediatric patients less than 2 years of age. [facility] | SPECIAL IMM + | | [...] | + + + + + | [facility] | [address] | [place] [address] | | | SERVICES, SPECIAL | PARK [...] Jeri | | | | | | [place] Access DxI | | | | | | method.Performed by [facility] | | | | | | Laboratories,[address] | | | | | | Abdulaziz Doss, [facility],[place] | | | | | | [address] | | | | | | [phone].[email or web address]. | | | | | | [...] [facility] | [address] | [place], [place] | | | UNIV PTH - INTFC | | [address] | | + + + + + [...] | [facility] | | | PEROXIDASE | [facility],[address] | | REG UNIV | | | AB | Abdulaziz Doss, [place], [place] | | PTH - INTFC | | | | [address] | | | | | | [phone].aruplab. | | | | | | Antonino [...] [facility] | [address] | [place], [place] | | | UNIV PTH - INTFC | | [address] | | + + + + + [...] | + + + + + | [facility] | [address] | [place] [address] | | | SERVICES, SPECIAL | PHYLLIS [...] + | [facility] | [address] | [place] [address] | | | [place] | | | [...] | | | | | | Weak [id number] U/mL or | | | | | [...] by | | | | | | [facility],[address] | | | | | | Abdulaziz Doss, [facility],[place] | | | | | | [address] | | | | | | [phone].Loop App. | | | | | | Antonino varela MD, | | | | | | Lab. Director | | | | + + + + + + + + | Specimen | + + | Blood - Blood | | (substance) | + + + + + + + | Performing | Address | City/State/[facility] | Phone Number | | Organization | | | | + + + + + | [facility] | [address] | [place], [place] | | | UNIV PTH - INTFC | | [address] | | + + + + + [...] [facility] | [address] | [place] [address] | | | SERVICES, CORE | PARK [...] | | | LABORATORY | | | [place] | | | SERVICES, | | | [...] + + + + + | [facility] | [address] | [place] [address] | | | SERVICES, CORE | [address] | | | + + + + + documented in this encounter Visit Diagnoses + + | Diagnosis | + + | Unintended weight loss | + + | LLQ abdominal pain Abdominal pain, left lower quadrant | + + documented in this encounter"
--- OUTSIDE RECORDS SUMMARY | ~2019-09-07 | XMS | Encounter Summary ---
Demographics + + + | Address | [address] | | | [place] [address] | + + + | Home Phone | | + + + | Preferred Language | Unknown | + + + | Marital Status | | + + + | Jew Affiliation | Unknown | + + + | Race | Unknown | + + + | Ethnic Group | Unknown | + + + Author + + + | Author | [facility] | | | and [place] | + + + | Organization | [facility] | | | [...] Team Providers + +------+ + | Care Dining Service Worker Name | Role | Phone | + [...] [address] | [address] [place], [place] | | | 12/21/ | | [address] | [address] | | | 2011 | | [place] | | | | | | [address] | | | | | | [phone] | | | +--------+ + + + [...] + + + | [facility] | [address] | [place] [address] | | | [facility] | | [...] + + + | [facility] | [address] | [place] [address] | | | [facility] | | [...]
--- OUTSIDE RECORDS SUMMARY | ~2019-09-07 | XMS | Clinical Summary ---
Demographics + + + | Address | [address] | | | [place] [address] | + + + | Home Phone | | + + + | Preferred Language | Unknown | + + + | Marital Status | Unknown | + + + | Yarsani Affiliation | Unknown | + + + | Race | Unknown | + + + | Ethnic Group | Unknown | + + + Author + + + | Author | [facility] (Historical as of | | | 04-11-19) | + + + | Organization | [facility] (Historical as of | | | 04-11-19) [...] Team Providers + +------+ + | Care Direct Mail Clerk Name | Role | Phone | [...] +------+-------+ + | MEDICAID | [place]ER | [id number] | | | [address] | | | N | | | | [place] | | | [place] | | | | [address] | | | PHYS THER | | | | | + +--------+ [...] Self | [birth year] | Home: | [address] | | [address] [address] | hardik/Guy | | 1989 | [phone] [place] [address] | | | azucena | | | [phone] | | + +--------+ +--------+ + +
--- OUTSIDE RECORDS SUMMARY | ~2019-09-07 | XMS | Encounter Summary ---
Demographics + + + | Address | [address] | | | [place], [place] [address] | + + + | Home Phone | | + + + | Preferred Language | Unknown | + + + | Marital Status | | + + + | Islam Affiliation | Unknown | + + + | Race | Unknown | + + + | Ethnic Group | Other Race | + + + Author + + + | Author | [facility] | + + + | Organization | [facility] | + + + | Address | Unknown | + + + | Phone | Unavailable | + + + Support + + +---------+ + | Name | Relationship | Address | Phone | + + +---------+ + | Per None, PT | ECON | Unknown | Unavailable | + + +---------+ + Care Team Providers + +------+ + | Care Line Supervisor Name | Role | Phone | [...] | | | | | pain | [facility] | Mailcode: | | | | | Unintended | Rd | Center for | | | | | weight loss | [facility] [place] | Health and | | | | | Procedures | [address] | Healing, | | | | | CONSULT TO | Phone: | [address] | | | | | [address] | [phone] | [facility] [place] | | | | | [place] | Fax: | [address] | | | | | | [phone] | Phone: | | | | | | | [phone] | | | | | | | Fax: | | | | | | | [phone] | +--------+--------+ + + + + Encounter Details +--------+ + + + + | Date | Type | Department | Care Team | Description | +--------+ + + + + | 05/20/ | T[facility] | Juanjo Duran | Seth Johnson MD | RE:urine | | 2017 | Encounter | [facility] | [address] | | | | | [facility] | [facility] | | | | | [address] | [place] [address] | | | | | [address] | [phone] | | | | | [facility] | | | | | | Physician's | | | | | | Pavilion [address] | | | | | | [place] [address] | | | | | | [phone] | | | +--------+ + + + [...]
--- OUTSIDE RECORDS SUMMARY | ~2019-09-07 | XMS | Encounter Summary ---
Demographics + + + | Address | [address] | | | [place], [place] [address] | + + + | Home Phone | | + + + | Preferred Language | Unknown | + + + | Marital Status | | + + + | Catholic Affiliation | Unknown | + + + | Race | Unknown | + + + | Ethnic Group | Other Race | + + + Author + + + | Author | [facility] | + + + | Organization | [facility] | + + + | Address | Unknown | + + + | Phone | Unavailable | + + + Support + + +---------+ + | Name | Relationship | Address | Phone | + + +---------+ + | Per None, PT | ECON | Unknown | Unavailable | + + +---------+ + Care Team Providers + +------+ + | Care Bulk Pallet Builder Name | Role | Phone | + [...] | | | | | [facility] | [facility] [place], | | | | | [address] | [place] [address] | | | | | [address] | [phone] | | | | | [facility] | | | | | | Physician's | | | | | | Pavilion [place], | | | | | | [place] [address] | | | | | | [phone] | | | +--------+ + + + [...]
--- OUTSIDE RECORDS SUMMARY | ~2019-09-07 | XMS | Encounter Summary ---
Demographics + + + | Address | [address] | | | [place] [address] | + + + | Home Phone | | + + + | Preferred Language | Unknown | + + + | Marital Status | | + + + | Denominational Affiliation | Unknown | + + + | Race | Unknown | + + + | Ethnic Group | Unknown | + + + Author + + + | Author | [facility] | | | and [place] | + + + | Organization | [facility] | | | and [...] Team Providers + +------+ + | Care Zone Manager Name | Role | Phone | + +------+ + PCP | Unavailable | + +------+ + Encounter Details +--------+ + + + + | Date | Type | Department | Care Team | Description | +--------+ + + + + | 12/14/ | Hospital [facility] | ED, PHYSICIAN | | | 2012 | Encounter | [facility] | Chemo Castro MD | | | | | EM[facility]Y [facility]ENTER | [address] | | | | | [address] | [place] [address] | | | | | [place], [place] | [phone] | | | | | [address] | | | | | | [phone] | | | +--------+ + + + [...] + | CULTURE, URINE | Routin | 12/14/2012 | | Results for this | | | e | 9:31 PM | | procedure are in the | | | | PDT | | results section. | + +--------+ + + + | US OB LIMITED 1 OR | | 12/14/2012 | | Results for this | | MORE FETUS | | 8:57 PM | | procedure are in the | | | | PDT | | results section. | + +--------+ + + + | EXTRA HOLD TUBE(S) | Routin | 12/14/2012 | | Results for this | | | e | 7:42 PM | | procedure are in the | | | | PDT | | results section. | + +--------+ + + + | RH ONLY | Routin | 12/14/2012 | | Results for this | | | e | 7:40 PM | | procedure are in the | | | | PDT | | results section. | + +--------+ + + + | URINALYSIS WITH | Routin | 12/14/2012 | | Results for this | | MICROSCOPIC | e | 7:40 PM | | procedure are in the | | | | PDT | | results section. | + +--------+ + + + | CBC WITH | Routin | 12/14/2012 | | Results for this | | DIFFERENTIAL | e | 7:40 PM | | procedure are in the | | | | PDT | | results section. | + +--------+ + + + | HCG, SERUM, QUANT | Routin | 12/14/2012 | | Results for this | | | e | 7:40 PM | | procedure are in the | | | | PDT | | results section. | + +--------+ + + + | TSH | Routin | 12/14/2012 | | Results for this | | | e | 7:40 PM | | procedure are in the | | | | PDT | | results section. | + +--------+ + + + | T4, FREE | Routin | 12/14/2012 | | Results for this | | | e | 7:40 PM | | procedure are in the | | | | PDT | | results section. | + +--------+ + + + | COMPREHENSIVE | Routin | 12/14/2012 | | Results for this | | METABOLIC PANEL | e | 7:40 PM | | procedure are in the | | | | PDT | | results section. | + +--------+ + + + documented in this encounter Results Culture, Urine (12/14/2012 9:31 PM PDT) + + + + + + | Component | Value | Ref Range | Performed | Pathologist | | | | | At | Signature | + + + + + + | Specimen | Urine, Clean Catch | | [facility] | | | Source [...] + + + + | Status | 12/15/2012 Final | | [facility] | | | | | [facility] | | | | | [facility] | | | | | | MEDICAL | | | | | | CENTER | | | | | | LABORATORY | | + + + + + + + + | Specimen | + + | Other | + + + + + + + | Performing | Address | City/State/Zipcode | Phone Number | | Organization | | | | + + + + + | [facility] | [address] | [place] [address] | | | [facility] | | | | | LABORATORY | | | | + + + + + US OB Limited 1 or More Fetus (12/14/2012 8:57 PM PDT) + + | Specimen | + + | | + + + + + | Narrative | Performed At | + + + | Exam Performed Location: [facility] | MISCELANIOUS | | ULTRASOUND OBSTETRIC, LIMITED CLINICAL INFORMATION: Vaginal | LAB | | bleeding. COMPARISON: None. PROCEDURE: Evaluation of | | | heart beat, placental location, position and/or amniotic fluid | | | volume. FINDINGS: Single, live intrauterine in variable | | | presentation. cardiac activity documented at a rate of 145 | | | bpm. The placenta lies in the lower uterine segment and is highly | | | suspicious for complete previa. No evidence of intrauterine | | | bleeding. Amniotic fluid volume is subjectively normal. | | | Biometric data is as follows: BPD measures 3.1 cm; HC measures 11.2 | | | cm; AC measures 9.37 FL measures 1.7 cm. Biometric data is | | | commensurate composite gestational age of 15 weeks 3 days. | | | IMPRESSION: 1. Single, live intrauterine in variable | | | presentation. 2. Transabdominal and translabial examinations reveal | | | what is probably a complete placenta previa. Recommend sonographic | | | follow- up. S: SQ ([id number]) Signed by: TAIWO DUMONT MD | | + + + + + | Procedure Note | + + | Guru, Amrik Conversion - 06/17/2013 9:40 PM PDT Exam Performed Location: [facility] | [facility]INICAL INFORMATION:Vaginal | | bleeding.COMPARISON:None.PROCEDURE:Evaluation of heart beat, placental location, | | positionand/or amniotic fluid volume.FINDINGS:Single, live intrauterine | | in variable presentation. cardiac activity documented at a rate of 145 bpm.The | | placenta lies in the lower uterine segment and is highlysuspicious for complete previa. | | No evidence of intrauterinebleeding.Amniotic fluid volume is subjectively | | normal.Biometric data is as follows: BPD measures 3.1 cm; HC xwwipgdf47.2 cm; AC | | measures 9.37 FL measures 1.7 cm. Biometric data iscommensurate composite gestational | | age of 15 weeks 3 days.IMPRESSION:1. Single, live intrauterine in variable | | presentation.2. Transabdominal and translabial examinations reveal what isprobably a | | complete placenta previa. Recommend sonographic follow-up.S: SQ ([id number]) Signed by: | | TAIWO DUMONT MD | | | |FINDINGS: | |Single, live intrauterine in variable presentation. | | | | cardiac activity documented at a rate of 145 bpm. | | | |The placenta lies in the lower uterine segment and is highly | |suspicious for complete previa. No evidence of intrauterine | |bleeding. | | | |Amniotic fluid volume is subjectively normal. | | | |Biometric data is as follows: BPD measures 3.1 cm; HC measures | |11.2 cm; AC measures 9.37 FL measures 1.7 cm. Biometric data is | |commensurate composite gestational age of 15 weeks 3 days. | | | |IMPRESSION: | |1. Single, live intrauterine in variable presentation. | |2. Transabdominal and translabial examinations reveal what is | |probably a complete placenta previa. Recommend sonographic follow- | |up. | | | | | |S: SQ ([id number]) Signed by: TAIWO DUMONT MD | + + + +---------+ + + | Performing | Address | City/State/Zipcode | Phone Number | | Organization | | | | + +---------+ + + | MISCELLANEOUS LAB | | | [phone] | + +---------+ + + | MISCELANIOUS LAB | | | [phone] | + +---------+ + + Extra Hold Tube(s) (12/14/2012 7:42 PM PDT) + +-------+ + + + | Component | Value | Ref Range | Performed | Pathologist | | | | | At | Signature | + +-------+ + + + | Extra Tube | BLUE | | [facility] | | | | [...] + + + + + | [facility] | [address] | [place] [address] | | | [facility] | | | | | LABORATORY | | | | + + + + + TSH (12/14/2012 7:40 PM PDT) + +-------+ + + + | Component | Value | Ref Range | Performed | Pathologist | | | | | At | Signature | + +-------+ + + + | TSH | 1.24 | 0.45 - 5.10 | [facility] | [...] + + | [facility] | [address] | [place] [address] | | | [facility] | | | | | LABORATORY | | | | + + + + + T4, Free (12/14/2012 7:40 PM PDT) + +-------+ + + + | Component | Value | Ref Range | Performed | Pathologist | | | | | At | Signature | + +-------+ + + + | FT4 | 1.2 | 0.7 - 1.5 ng/dL | [facility] | | | | | [...] + + | [facility] | [address] | [place] [address] | | | [facility] | | | | | LABORATORY | | | | + + + + + HCG, Serum, Quant (12/14/2012 7:40 PM PDT) + + + + + + | Component | Value | Ref Range | Performed | Pathologist | | | | | At | Signature | + + + + + + | hCG Quant, | 67,290.0 (H)Comment: A | <5.0 mIU/mL | [facility] | | | Serum | result greater than 25 | | [facility] | | | | mIU/mL is positive for a | | HEART | | | | test. Males | | MEDICAL | | | | and non- | | CENTER | | | | females, normal less | | LABORATORY | | | | than 5.0 mIU/mL | | | | | | [facility] [employer] [facility] | | | | | | INTERVALS After | | | | | | After | | | | | | mIU/mLFertilize | | | | | | LMP (weeks) (weeks) | | | | | | 2 4 | | | | | | 5 to 450 3 | | | | | | 5 | | | | | | 50 to 7000 4 | | | | | | 6 1000 to | | | | | | [address] 5 to 12 7 to 14 | | | | | | 5000 to [id number] to | | | | | | 24 15 to 26 4000 to | | | | | | [id number] to 38 27 to | | | | | | 41 3000 to 479697 HCG | | | | | | values in early normal | | | | | | double every | | | | | | 48 hours.For diagnostic | | | | | | purposes, hCG results | | | | | | should be interpreted in | | | | | | conjunction with | | | | | | clinical findings.This | | | | | | test is not suitable as | | | | | | a tumor marker. It | | | | | | should not be used in | | | | | | the diagnosis of any | | | | | | abnormal condition not | | | | | | related to | | | | | | .Sample diluted | | | | | | and verified by repeat | | | | | | analysis | | | | + + + + + + + + | Specimen | + + | | + + + + + + + | Performing | Address | City/State/Zipcode | Phone Number | | Organization | | | | + + + + + | [facility] | [address] | [place] [address] | | | [facility] | | | | | LABORATORY | | | | + + + + + Comprehensive Metabolic Panel (12/14/2012 7:40 PM PDT) + + + + + + | Component | Value | Ref Range | Performed | Pathologist | | | | | At | Signature | + + + + + + | Na | 133 (L) | 135 - 145 | [facility] | | | | | mmol/L | [facility] | | | | | | HEART | | | | | | MEDICAL | | | | | | CENTER | | | | | | LABORATORY | | + + + + + + | K | 3.4 (L) | 3.5 - 5.0 | [facility] | | | | | mmol/L | [facility] | | | | | | HEART | | | | | | MEDICAL | | | | | | CENTER | | | | | | LABORATORY | | + + + + + + | Cl | 103 | 99 - 109 mmol/L | [facility] | | | | | | [facility] | | | | | | HEART | | | | | | MEDICAL | | | | | | CENTER | | | | | | LABORATORY | | + + + + + + | CO2 | 21 | 21 - 28 mmol/L | [facility] | | | | | | [facility] | | | | | | HEART | | | | | | MEDICAL | | | | | | CENTER | | | | | | LABORATORY | | + + + + + + | Glucose | 69Comment: If , | 65 - 99 mg/dL | [facility] | | | | Normal = 65 to 94 mg/dL. | | [facility] | | | | [place] Diabetes | | HEART | | | | Association diagnostic | | MEDICAL | | | | categories for | | CENTER | | | | non adults: | | LABORATORY | | [...] + + + + | BUN | 15 | 8 - 25 mg/dL | [facility] | | | | | | [facility] | | | | | | HEART | | | | | | MEDICAL | | | | | | CENTER | | | | | | LABORATORY | | + + + + + + | Creatinine | 0.65Comment: IDMS | 0.50 - 1.00 | [facility] | | | | traceable creatinine | mg/dL | [facility] | | | | | | HEART | | | | | | MEDICAL | | | | | | CENTER | | | | | | LABORATORY | | + + + + + + | Calcium | 9.1 | 8.5 - 10.2 | [facility] | | | | | mg/dL | [facility] | | | | | | HEART | | | | | | MEDICAL | | | | | | CENTER | | | | | | LABORATORY | | + + + + + + | Total | 6.9 | 6.1 - 8.4 g/dL | [facility] | | | Protein | | | [facility] | | | | | | HEART | | | | | | MEDICAL | | | | | | CENTER | | | | | | LABORATORY | | + + + + + + | Albumin | 4.2 | 3.5 - 5.0 g/dL | [facility] | | | | | | [facility] | | | | | | HEART | | | | | | MEDICAL | | | | | | CENTER | | | | | | LABORATORY | | + + + + + + | Bilirubin | 0.5 | 0.1 - 1.5 mg/dL | [facility] | | | Total | | | [facility] | | | | | | HEART | | | | | | MEDICAL | | | | | | CENTER | | | | | | LABORATORY | | + + + + + + | Alkaline | 46 | 35 - 115 U/L | [facility] | | | Phosphatase | | | [facility] | | | | | | HEART | | | | | | MEDICAL | | | | | | CENTER | | | | | | LABORATORY | | + + + + + + | AST | 11 | 10 - 45 U/L | [facility] | | | | | | [facility] | | | | | | HEART | | | | | | MEDICAL | | | | | | CENTER | | | | | | LABORATORY | | + + + + + + | ALT | 7 (L) | 10 - 65 U/L | [facility] | | | | | | [facility] | | | | | | HEART | | | | | | MEDICAL | | | | | | CENTER | | | | | | LABORATORY | | + + + + + + | Anion Gap | 9 | 5 - 16 mmol/L | [facility] [...] + + | [facility] | [address] | [place] [address] | | | [facility] | | | | | LABORATORY | | | | + + + + + Rh Only (12/14/2012 7:40 PM PDT) + + + + + + | Component | Value | Ref Range | Performed | Pathologist | | | | | At | Signature | + + + + + + | Rh Type | Positive | | [facility] | | | | [...] + + | [facility] | [address] | [place] [address] | | | [facility] | | | | | LABORATORY | | | | + + + + + Urinalysis With Microscopic (12/14/2012 7:40 PM PDT) + + + + + [...] + + + + | Clarity | Clear | | [facility] | | | | [...] + + + + | Ketones, | 100 (HH) | Negative mg/dL | [facility] | | | Urine | | | [facility] | | | | | | HEART | | | | | | MEDICAL | | | | | | CENTER | | | | | | LABORATORY | | + + + + + + | Specific | 1.028 | 1.001 - 1.030 | [facility] | | | Byron | | | [facility] | | | | | | HEART | | | | | | MEDICAL | | | | | | CENTER | | | | | | LABORATORY | | + + + + + + | pH, Urine | 5.5 | 5.0 - 7.5 | [facility] | | | | | | [facility] | | | | | | HEART | | | | | | MEDICAL | | | | | | CENTER | | | | | | LABORATORY | | + + + + + + | Protein, | 30 (A) | Negative mg/dL | [facility] | [...] + + + + | Leukocyte | Small (A) | Negative | [facility] | | | Esterase, | | | [facility]CR[facility] | | | Urine | | | HEART | | | | | | MEDICAL | | | | | | CENTER | | | | | | LABORATORY | | + + + + + + | WBC UA | 6 (H) | <6 /hpf | [facility] | | | | | | [facility] | | | | | | HEART | | | | | | MEDICAL | | | | | | CENTER | | | | | | LABORATORY | | + + + + + + | RBC UA | 1 | <6 /hpf | [facility] | | [...] + + | [facility] | [address] | [place] [address] | | | [facility] | | | | | LABORATORY | | | | + + + + + CBC with Differential (12/14/2012 7:40 PM PDT) + + + + + + | Component | Value | Ref Range | Performed | Pathologist | | | | | At | Signature | + + + + + + | WBC | 8.9 | 3.8 - 11.0 K/uL | [facility] | | | | | | [facility] | | | | | | HEART | | | | | | MEDICAL | | | | | | CENTER | | | | | | LABORATORY | | + + + + + + | RBC | 4.24 | 3.70 - 5.10 | [facility] | | | | | M/uL | [facility] | | | | | | HEART | | | | | | MEDICAL | | | | | | CENTER | | | | | | LABORATORY | | + + + + + + | Hemoglobin | 13.1 | 11.3 - 15.5 | [facility] | | | | | g/dL | [facility] | | | | | | HEART | | | | | | MEDICAL | | | | | | CENTER | | | | | | LABORATORY | | + + + + + + | Hematocrit | 38.0 | 34.0 - 46.0 % | [facility] | | | | | | [facility] | | | | | | HEART | | | | | | MEDICAL | | | | | | CENTER | | | | | | LABORATORY | | + + + + + + | MCV | 89.7 | 80.0 - 100.0 fL | [facility] | | | | | | [facility] | | | | | | HEART | | | | | | MEDICAL | | | | | | CENTER | | | | | | LABORATORY | | + + + + + + | MCH | 30.8 | 27.0 - 34.0 pg | [facility] | | | | | | [facility] | | | | | | HEART | | | | | | MEDICAL | | | | | | CENTER | | | | | | LABORATORY | | + + + + + + | MCHC | 34.3 | 32.0 - 35.5 | [facility] | | | | | g/dL | [facility] | | | | | | HEART | | | | | | MEDICAL | | | | | | CENTER | | | | | | LABORATORY | | + + + + + + | RDW-CV | 13.2 | 11.0 - 15.5 % | [facility] | | | | | | [facility] | | | | | | HEART | | | | | | MEDICAL | | | | | | CENTER | | | | | | LABORATORY | | + + + + + + | Platelet | 168 | 150 - 400 K/uL | [facility] | | | Count | | | [facility] | | | | | | HEART | | | | | | MEDICAL | | | | | | CENTER | | | | | | LABORATORY | | + + + + + + | Differentia | Automated | | [facility] | | | l Type | | | [facility] | | | | | | HEART | | | | | | MEDICAL | | | | | | CENTER | | | | | | LABORATORY | | + + + + + + | % | 73.6 | 40.0 - 75.0 % | [facility] | | | Neutrophils | | | [facility] | | | | | | HEART | | | | | | MEDICAL | | | | | | CENTER | | | | | | LABORATORY | | + + + + + + | % | 20.0 | 15.0 - 48.0 % | [facility] | | | Lymphocytes | | | [facility] | | | | | | HEART | | | | | | MEDICAL | | | | | | CENTER | | | | | | LABORATORY | | + + + + + + | % Monocytes | 5.3 | 0.0 - 12.0 % | [facility] | | | | | | [facility] | | | | | | HEART | | | | | | MEDICAL | | | | | | CENTER | | | | | | LABORATORY | | + + + + + + | % | 0.6 | 0.0 - 7.0 % | [facility] | | | Eosinophils | | | [facility] | | | | | | HEART | | | | | | MEDICAL | | | | | | CENTER | | | | | | LABORATORY | | + + + + + + | % Basophils | 0.5 | 0.0 - 2.0 % | [facility] | | | | | | [facility] | | | | | | HEART | | | | | | MEDICAL | | | | | | CENTER | | | | | | LABORATORY | | + + + + + + | Absolute | 6.60 | 1.90 - 7.40 | [facility] | | | Neutrophils | | K/uL | [facility] | | | | | | HEART | | | | | | MEDICAL | | | | | | CENTER | | | | | | LABORATORY | | + + + + + + | Absolute | 1.80 | 1.00 - 3.90 | [facility] | | | Lymphocytes | | K/uL | [facility] | | | | | | HEART | | | | | | MEDICAL | | | | | | CENTER | | | | | | LABORATORY | | + + + + + + | Absolute | 0.50 | 0.00 - 0.80 | [facility] | | | Monocytes | | K/uL | [facility] | | | | | | HEART | | | | | | MEDICAL | | | | | | CENTER | | | | | | LABORATORY | | + + + + + + | Absolute | 0.00 | 0.00 - 0.50 | [facility] | | | Eosinophils | | K/uL | [facility] | | | | | | HEART | | | | | | MEDICAL | | | | | | CENTER | | | | | | LABORATORY | | + + + + + + | Absolute | 0.00 | 0.00 - 0.10 | [facility] | | | Basophils | | K/uL | [facility] | | | | | [...] + + | [facility] | [address] | [place] [address] | | | [facility] | | | | | LABORATORY | | | | + + + + + documented in this encounter Visit Diagnoses Not on filedocumented in this encounter"
--- OUTSIDE RECORDS SUMMARY | ~2019-09-07 | XMS | Clinical Summary ---
Demographics + + + | Address | [address] | | | [place] [address] | + + + | Home Phone | | + + + | Preferred Language | Unknown | + + + | Marital Status | | + + + | Shinto Affiliation | Unknown | + + + [...] Team Providers + +------+ + | Care Printing Roller Handler Name | Role | Phone | + +------+ + | Michael Branch MD | PCP | | + +------+ + Source Comments [facility] is fully live on both [facility] and [facility] In[facility] Allergies + + + + + + [...] | | | + +--------+ +--------+-------+---------+--------+ | [employer] MEDICAID | [employer] | xxxxxxxx | 06/25/ | | | [...] al/Fam | | 1990 | [phone] | [place] [address] | | | azucena | | | 9 ([place]) | | + +--------+ +--------+ + +
--- OUTSIDE RECORDS SUMMARY | ~2019-09-07 | XMS | Encounter Summary ---
Demographics + + + | Address | [address] | | | [place], [place] [address] | + + + | Home Phone [...] Team Providers + +------+ + | Care Cloth Bleaching Range Back Tender Name | Role | Phone | + [...] | | 2016 | | Center at [facility] [address] | Gastroenterology | Gastroenterology | | | | [address] | | | | | | Mailcode: Center | | | | | | for [facility] and | | | | | | Healing, [address] | | | | | | [place], [place] | | | | | | [address] | | | | | | [phone] | | | +--------+ + + + [...]
--- OUTSIDE RECORDS SUMMARY | ~2019-09-07 | XMS | Encounter Summary ---
Demographics + + + | Address | [address] | | | [place], [place] [address] | + + + | Home Phone | | + + + | Preferred Language | Unknown | + + + | Marital Status | | + + + | Yazidism Affiliation | Unknown | + + + | Race | Unknown | + + + | Ethnic Group | Other Race | + + + Author + + + | Author | [facility] | + + + | Organization | [facility] | + + + | Address | Unknown | + + + | Phone | Unavailable | + + + Support + + +---------+ + | Name | Relationship | Address | Phone | + + +---------+ + | Per None, PT | ECON | Unknown | Unavailable | + + +---------+ + Care Team Providers + +------+ + | Care Aircraft Quality Control Inspector Name | Role | Phone | + [...] | | | | | Center at [facility] | [address], | | | | | [address] | [place] [address] | | | | | [address] | [phone] | | | | | [facility] | | | | | | Physician's | | | | | | Pavilion [place], | | | | | | [place] [address] | | | | | | [phone] | | | +--------+ + + + [...]
--- OUTSIDE RECORDS SUMMARY | ~2019-09-07 | XMS | Encounter Summary ---
Demographics + + + | Address | [address] | | | [place], [place] [address] | + + + | Home Phone | | + + + | Preferred Language | Unknown | + + + | Marital Status | | + + + | Faith Affiliation | Unknown | + + + | Race | Unknown | + + + | Ethnic Group | Other Race | + + + Author + + + | Author | [facility] | + + + | Organization | [facility] | + + + | Address | Unknown | + + + | Phone | Unavailable | + + + Support + + +---------+ + | Name | Relationship | Address | Phone | + + +---------+ + | Per None, PT | ECON | Unknown | Unavailable | + + +---------+ + Care Team Providers + +------+ + | Care Necktie Operator Pockets And Pieces Name | Role | Phone | + [...] | Endocrinology | | | | | [facility] | | | | | | [address] | | | | | | [address] | | | | | | Physician's Pavilion | | | | | | Physician's | | | | | | [facility] | | | | | | [place] [address] | | | | | | [phone] | | | +--------+ + + + [...]
--- OUTSIDE RECORDS SUMMARY | ~2019-09-07 | XMS | Encounter Summary ---
Demographics + + + | Address | [address] | | | [place] [address] | + + + | Home Phone | | + + + | Preferred Language | Unknown | + + + | Marital Status | | + + + | Worship Affiliation | Unknown | + + + | Race | Unknown | + + + | Ethnic Group | Unknown | + + + Author + + + | Author | [facility] | | | and [place] | + + + | Organization | [facility] | | | [...] Team Providers + +------+ + | Care Tire Shop Mechanic Name | Role | Phone | + +------+ + | Giovanna Rivera MD | PCP | | + +------+ + Encounter Details +--------+ + + + + | Date | Type | Department | Care Team | Description | +--------+ + + + + | 02/05/ | Hospital | [facility] | [place], | | | 2013 - | Encounter | [facility] | Ines Leung MD [address] | | | | | [facility] | [address] | | | 08/11/ | | [facility] [address] | [address] [place], [place] | [address] [place], [place] | [address] | | | | | [address] | | | | | | [phone] | | | +--------+ + + + [...]
--- OUTSIDE RECORDS SUMMARY | ~2019-09-07 | XMS | Encounter Summary ---
Demographics + + + | Address | [address] | | | [place] [address] | + + + | Home Phone | | + + + | Preferred Language | Unknown | + + + | Marital Status | | + + + | Scientology Affiliation | Unknown | + + + | Race | Unknown | + + + | Ethnic Group | Unknown | + + + Author + + + | Author | [facility] | | | and [place] | + + + | Organization | [facility] | | | [...] Team Providers + +------+ + | Care Licensed Psychologist Manager Name | Role | Phone | [...] [address] [place], [place] | | | | | [address] | [address] | | | | | [place], [place] | | | | | | [address] | | | | | | [phone] | | | +--------+ + + + [...]
--- OUTSIDE RECORDS SUMMARY | ~2019-09-07 | XMS | Encounter Summary ---
Demographics + + + | Address | [address] | | | [place], [place] [address] | + + + | Home Phone | | + + + | Preferred Language | Unknown | + + + | Marital Status | | + + + | Yarsani Affiliation | Unknown | + + + | Race | Unknown | + + + | Ethnic Group | Other Race | + + + Author + + + | Author | [facility] | + + + | Organization | [facility] | + + + | Address | Unknown | + + + | Phone | Unavailable | + + + Support + + +---------+ + | Name | Relationship | Address | Phone | + + +---------+ + | Per None, PT | ECON | Unknown | Unavailable | + + +---------+ + Care Team Providers + +------+ + | Care Wood Carver Hand Name | Role | Phone | + [...] | | | Metabolism | Abdominal | [facility] | [address] [facility] | | | | | Pain | Primary Care | Daniel Johnson | | | | | Procedures | Clinic | [place], | | | | | [place] NEW | [address] | [place] | | | | | PATIENT | [place] | [address] | | | | | LEVEL V [place] | RJ, | Phone: | | | | | EST PATIENT | [place] [address] | [phone] | | | | | LEVEL V | Phone: | Fax: | | | | | | [phone] | [phone] | | | | | | Fax: | | | | | | | [phone] | | +--------+--------+ + + + + [...] | | [address] | [place] [address] | | | | | [address] | [phone] | | | | | Physician's [facility] | | | | | | Physician's | | | | | | [place], | | | | | | [place] [address] | | | | | | [phone] | | | +--------+---------+ + + + [...] Branch MD Referring Physician: Michael Branch MD [facility] [address] [place] [address] Reason for referral: Referred for evaluation of [...] HFA aerosol inhaler Cassy Kim MD Pager [phone] Endocrinology Fellow This patient was seen and [...] Johnson MD Endocrinology, Diabetes and Clinical Nutrition [address] [place] [address] Physicians [place] - [address] [address] documented in this encounter Plan [...] + + + + | [facility] | [address] | [place] [address] | | | SERVICES, CORE | PHYLLIS [...] + + | [facility] | [address] | [place] [address] | | | SERVICES, CORE | PARK [...] | + + + + + | [facility] | [address] | [place] [address] | | | SERVICES, CORE | PHYLLIS [...] | | | | | [facility] | | + +-------+ + + + + + | Specimen | + + | Blood - Blood | | (substance) | + + + + + + + | Performing | Address | City/State/Zipcode | Phone Number | | Organization | | | | + + + + + | [facility] | [address] | [place] [address] | | | [facility] | | | | + + + [...] [facility] | [address] | [place] [address] | | | SERVICES, CORE | PHYLLIS [...] [facility] | [address] | [place] [address] | | | SERVICES, CORE | PARK [...] modified from | [facility] | | original paste mixer's approved specifications. The performance | LABORATORY | | of the RING MAKER HIV Combo test, with or without confirmation, was not | SERVICES, | | tested in pediatric patients less than 2 years of age. [facility] | SPECIAL IMM + | | guidelines [...] | + + + + + | [facility] | [address] | [place] [address] | | | SERVICES, SPECIAL | PHYLLIS [...] Jeri | | | | | | [facility] Access DxI | | | | | | method.Performed by [facility] | | | | | | [facility],[address] | | | | | | Leona Doss, [facility] [place] | | | | | | [address] | | | | | | [phone]. | | | | | | Antonino [...] + + | [facility] | [address] [facility] | [place], [place] | | | UNIV PTH - INTFC | | [address] | | + + + + + [...] | [facility] | | | PEROXIDASE | [facility],[address] | | REG UNIV | | | AB | Bangfrandy Doss, [facility] [place] | | PTH - INTFC | | | | [address] | | | | | | [phone]. | | | | | | Antonino [...] [facility] | [address] | [place], [place] | | | UNIV PTH - INTFC | | [address] | | + + + + + [...] [facility] | [address] | [place] [address] | | | SERVICES, SPECIAL | PARK [...] | + + + + + | [facility] | [address] | [place] [address] | | | [place] | | | [...] | | | | | | Weak Hyhmxmbz31 U/mL or | | | | | [...] by | | | | | | [employer],[address] | | | | | | [place] | | | | | | [address] | | | | | | [phone]. | | | | | | Antonino [...] [facility] | [address] | [place], [place] | | | UNIV PTH - INTFC | | [address] | | + + + + + [...] [facility] | [address] | [place] [address] | | | SERVICES, [facility] | [address] | | | + [...] | | | LABORATORY | | | [place] | | | SERVICES, | | | [...] + + + + | [facility] | [address] | [place] [address] | | | SERVICES, CORE | [address] | | | + + + + + documented in this encounter Visit Diagnoses + + | Diagnosis | + + | Unintended weight loss - Primary | + + | LLQ abdominal pain Abdominal pain, left lower quadrant | + + documented in this encounter
--- OUTSIDE RECORDS SUMMARY | ~2019-09-07 | XMS | Encounter Summary ---
Demographics + + + | Address | [address] [facility] | | | [place] [address] | + + + | Home Phone | | + + + | Preferred Language | Unknown | + + + | Marital Status | | + + + | Judaism Affiliation | Unknown | + + + | Race | Unknown | + + + | Ethnic Group | Unknown | + + + Author + + + | Author | [facility] | | | and [place] | + + + | Organization | [facility] | | [...] Team Providers + +------+ + | Care Central Office Maintainer Name | Role | Phone | + +------+ + PCP | Unavailable | + +------+ + Encounter Details +--------+ + + + + | Date | Type | Department | Care Team | Description | +--------+ + + + + | 12/14/ | Hospital [facility] ED, PHYSICIAN | | | 2012 | Encounter | [facility] | Chemo Castro MD | | | | | [facility] | [address] | | | | | [address] | [place] [address] | | | | | [place], [place] | [phone] | | | | | [address] | | | | | | [phone] | | | +--------+ + + + [...] + + + + + | [facility] | [address] | [place] [address] | | | [facility] | | | | | LABORATORY | | | | + + + + + US OB Limited 1 or More Fetus (12/14/2012 8:57 PM PDT) + + | Specimen | + + | | + + + + + | Narrative | Performed At | + + + | Exam Performed Location: [facility] | MISCELANIOUS | | ULTRASOUND OBSTETRIC, LIMITED [...] | | | follow- up. S: SQ ([id number]) Signed by: TAIWO DUMONT MD | | + + + + + | Procedure Note | + + | Guru, Amrik Conversion - 06/17/2013 9:40 PM PDT Exam Performed Location: [facility] | [facility] [...] as follows: BPD measures 3.1 cm; HC lckabrdb14.2 cm; AC | | measures 9.37 FL measures 1.7 cm. Biometric data iscommensurate composite gestational | | age of 15 weeks 3 days.IMPRESSION:1. Single, live intrauterine in variable | | presentation.2. Transabdominal and translabial examinations reveal what isprobably a | | complete placenta previa. Recommend sonographic follow-up.S: SQ ([id number]) Signed by: | | TAIWO DUMONT MD [...] | | | | | |S: SQ ([id number]) Signed by: TAIWO DUMONT MD | + + + +---------+ + + | Performing | Address | City/State/Zipcode | Phone Number | | Organization | | | | + +---------+ + + | [facility] | | | [phone] | + +---------+ + + | [facility] | | | [phone] | + +---------+ + + Extra Hold [...] + + | [facility] | [address] | [place] [address] | | | [facility] | | | | [...] + + | [facility] | [address] | [place] [address] | | | [facility] | [...] + + | [facility] | [address] | [place] [address] | | | [facility] | | | | | LABORATORY | [...] mIU/mL | | | | | | ELECTRICAL WIRER REFERENCE | | | | | | [...] to | | | | | | [address] 5 to 12 7 to 14 | | | | | | 5000 to [id number] to | | | | | | 24 15 to 26 4000 to | | | | | | [id number] to 38 27 to | | | | | | 41 3000 to 155722 HCG | | | | | | [...] + + | [facility] | [address] | [place] [address] | | | [facility] | | | | | LABORATORY | [...] | | [facility] | | | | [place] Diabetes | | HEART | | | [...] + | [facility] | [address] | [place] [address] | | | [facility] | | | | | LABORATORY | [...] | [address] | [place] [address] | | | [facility] | [...] - 1.030 | [facility] | | | [place] | | | [facility] | | | [...] + + | [facility] | [address] | [place] [address] | | | [facility] | [...] + + | [facility] | [address] | [place] [address] | | | [facility] | | | | | LABORATORY | | | | + + + + + documented in this encounter Visit Diagnoses Not on filedocumented in this encounter"
[~2019-09-07 11:12] MED LIST changes: +IBUPROFEN800 MG PO; +PERCOCET 5-3251 EACH PO; +PRENATAL FORMU1 EAC2 PO
[2019-09-07] MEDS ORDERED: ULTRAM50 MG PO (13:46)
== END 2019-09-07 13:55 | disposition home or self-care (01) ==
LOC: ED 11:12
DX: S39.012A Strain of muscle, fascia and tendon of lower back, initial encounter (principal); Z88.8 Allergy status to other drugs, medicaments and biological substances; Z88.2 Allergy status to sulfonamides; W19.XXXA Unspecified fall, initial encounter
CPT/HCPCS: 72100; 81001; 84703; 99283-25